=== PATIENT | female | born 1940 | race Caucasian/White ===

== ENCOUNTER 2017-06-29 18:35 | Inpatient (IN) | payer OTHER ==
[~2017-06-29] VITALS: Ht 152.4 cm; Wt 98.9 kg
[~2017-06-29 18:35] MED LIST: APAP325 MG PO; APRESOLINE50 MG PO; ARTHRITIS PAIN650 M1 PO; ATORVASTATIN CA40 MG PO; BUMETANIDE1 MG PO; CARDURA2 MG PO; CHILDREN'S ASPI81 M1; CIPRO 250MG250 MG PO; COLACE100 MG PO; CYMBALTA 30 MG30 MG PO; DIAZEPAM5 MG PO; ENALAPRIL5 MG PO; FERROUS SULFAT325 M1 PO; FLAGYL 25O MG250 M1 PO; FOLIC ACID 1 MG PO; FUROSEMIDE20 MG PO; FUROSEMIDE40 MG PO; HYDRALAZINE HCL25 MG PO; HYDRALAZINE HCL50 MG PO; JANUVIA 50MG50 MG PO; K-DUR 10MEQ TA10 MEQ PO; LASIX20 MG PO; LOPRESSOR 25MG25 MG PO; LOPRESSOR50 MG PO; METFORMIN HCL500 MG PO; MIRALAX17 GM PO; MULTIVITAMIN1 TAB PO; NIFEDICAL XL60 MG PO; NORCO 325 MG-51 TAB PO; ONE-A-DAY WOMEN1 TAB PO; POTASSIUM CHLO10 ME1 PO; PRAZOSIN HYDROCH2 MG PO; PRILOSEC40 MG PO; SIMVASTATIN40 MG PO; SIMVASTATIN80 MG PO; TRAMADOL50 MG PO; VALIUM5 M1 PO; VITAMIN B12500 MCG PO; VITAMIN B650 MG PO; VITAMIN D31000 IU PO; VITAMIN D31000 UNI2 PO; ZETIA10 MG PO
--- NOTE | 2017-06-29 19:33 | ED MVC/FALL/TRAUMA COMPLAINT ---
See Addendum History of Present Illness General Chief Complaint: Fall Stated Complaint: BIBA S/P FALL, SOB, TACHY Source: patient, EMS Exam Limitations: no limitations Vital Signs & Intake/Output Vital Signs & Intake/Output Vital Signs Date Time Temp Pulse Resp B/P B/P Pulse O2 O2 Flow FiO2 Mean Ox Delivery Rate 06/30 0124 98.8 102 20 128/86 92 Room Air 06/29 2314 100.3 90 20 164/66 95 Room Air 06/29 2150 100.1 85 22 169/70 92 Room Air 06/29 2018 94 172/72 06/29 1934 172/72 06/29 1838 101.3 94 18 195/103 95 ED Intake and Output 06/30 0000 06/29 1200 Intake Total 0 Output Total Balance 0 Intake, Oral 0 Patient 218 lb Weight Weight Reported by Patient Measurement Method Allergies Coded Allergies: Penicillins (Intermediate, HIVES 06/29/17) amoxicillin (DRY MOUTH 06/29/17) Triage Note: [facility]P FALL FROM STANDING ONTO TILE WHILE TRANSFERING FROM WALKER TO RECLINER. PT STATES SHE FELL ONTO BUTTOCKS, DENIES HEAD STRIKE. TAKES 81 MG ASA DAILY. DENIES PAIN. PER PT WAS ON FLOOR FOR 20 MINS PRIOR TO EMS ARRIVAL. PT FLUSHED ON ARRIVAL, TEMP 101.3. DENIES CHILLS OR OVERALL FEELING OF BEING UNWELL. STATES MANY PEOPLE AT HER [facility] HAVE THE FLU Triage Nurses Notes Reviewed? yes Onset: Abrupt Duration: hour(s): (2), constant, continues in ED Timing: single episode today Severity: mild, moderate Severity Numbers: 7 Injuries/Fall Location: no injury Method of Injury: fall Loss of Consciousness: no loss of consciousness No Modifying Factors: none LMP (ages 10-50): post menopausal : No Patient currently breastfeeds: No HPI: 77-year-old female past medical history of coronary artery disease, CHF, hypertension presents for evaluation of weakness, fever. Patient states that she was transferring from wheelchair to a recliner. While she was transferring she states her legs became very weak and she was unable to support her weight so she lowered herself to the ground. She states she did not fall. She denies any head strike no pain from the fall. She states she lowered herself to a sitting position. She required help to get back up into the wheelchair and was eventually transferred to a stretcher by EMS. She feels too weak to walk. She states she's been having cold and hot flashes all day and thinks she has a fever. She reports multiple contacts with the flu. No chest pain shortness breath or dizziness before the fall. No abdominal pain nausea vomiting diarrhea. No hemoptysis or lower extremity edema. (Timmy PABON,Norman) Reconcile Medications Acetaminophen (Apap) 325 MG TAB 1 TAB PO Q4H PRN MODERATE TO SEVERE PAIN ( Reported) Aspirin (Children's Aspirin) 81 MG TAB.CHEW 1 TAB PO BID HEART HEALTH ( Reported) Bumetanide 1 MG TAB 1 TAB PO BID Diuretic (Reported) Cholecalciferol (Vitamin D3) 1,000 UNIT TABLET 2,000 UNITS PO DAILY BONE STRENGTH (Reported) Ciprofloxacin (Ciprofloxacin HCl) 250 MG TAB 250 MG PO BID colitis Diazepam 5 MG TAB 1 TAB PO Q8H PRN SPASMS (Reported) Doxazosin Mesylate (Cardura) 2 MG TAB 1 TAB PO QPM HTN (Reported) Duloxetine Hydrochloride (Cymbalta) 30 MG CAP 1 CAP PO DAILY Depression ( Reported) Enalapril Maleate 5 MG TAB 1 TAB PO DAILY BLOOD PRESSURE (Reported) Ezetimibe (Zetia) 10 MG TAB 1 TAB PO DAILY CHOLESTEROL (Reported) Ferrous Sulfate 325 MG TAB 325 MG PO TID ANEMIA Furosemide 20 MG TAB 60 MG PO DAILY DIURETIC (Reported) HYDRALAZINE HCL (Hydralazine HCl) 50 MG TAB 1.5 TAB PO BID BLOOD PRESSURE Metformin Hydrochloride (Metformin HCl) 500 MG TAB 1 TAB PO DAILY DIABETES ( Reported) Metoprolol Tartrate (Lopressor) 25 MG TAB 75 MG PO BID BP (Reported) Metronidazole (Flagyl 25O MG Tablet) 250 MG TAB 500 MG PO Q8 colitis Nifedipine (Nifedipine ER) [address] TAB PO DAILY HEART/BP (Reported) Omeprazole (Prilosec) 40 MG ECC 1 CAP PO DAILY GI (Reported) Potassium Chloride [address] 1 TAB PO DAILY SUPPLEMENT (Reported) Simvastatin (Zocor) 80 MG TAB 1 TAB PO QPM CHOLESTEROL (Reported) Sitagliptin Phosphate (Januvia) 50 MG TAB 50 MG PO DAILY DIABETES TRAMADOL HCL (Tramadol) 50 MG TAB 1 TAB PO Q4H PRN PAIN (Reported) (Jacques LOWE,Mitchell Worley) ED Sepsis Exam Date of Focused Sepsis Exam: 06/29/17 Time of Focused Sepsis Exam: 2105 Sepsis Cardiac Exam: Regular Rate/Rhythm Sepsis Resp Exam: CTA Sepsis Cap Refill Exam: <2 Sec Sepsis Peripheral Pulse Exam: Normal Sepsis Peripheral Pulse Location: Radial Sepsis Skin Color Exam: Flushed Skin Temp/Moisture Exam: Hot/Dry (Norman Padilla) Past History Travel History Traveled to [place] past 21 day No Medical History Any Pertinent Medical History? 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 FH: CAD (coronary artery disease), Onset: 50-60. BROTHER (COPD). FH: cancer FH: COPD (chronic obstructive pulmonary disease) FATHER BROTHER (myocardial infarction). MOTHER FH: cancer SON SON (Mi in 40's). MOTHER ( from cancer of the liver and kidney). Hx Contributory? No (Norman Padilla) Review of Systems Review of Systems Constitutional: Reports: fever, malaise, weakness. Eyes: Reports: no symptoms. Ears, Nose, Throat, Mouth: Reports: no symptoms. Respiratory: Reports: no symptoms. Cardiovascular: Reports: no symptoms. Gastrointestinal/Abdominal: Reports: no symptoms. Genitourinary: Reports: no symptoms. Musculoskeletal: Reports: no symptoms. Skin: Reports: no symptoms. Neurological/Psychological: Reports: weakness. All Other Systems: Reviewed and Negative (Norman Padilla) Physical Exam Physical Exam General Appearance: well developed/nourished, no apparent distress, alert, awake , obese Head: atraumatic, normal appearance Eyes: Bilateral: normal appearance, PERRL, EOMI. Ears, Nose, Throat, Mouth: hearing grossly normal, moist mucous membrane Neck: normal inspection, supple, full range of motion, NO JVD Respiratory: chest non-tender, no respiratory distress, crackles (BASES) Cardiovascular: regular rate/rhythm, normal peripheral pulses Peripheral Pulses: 2+ radial (R), 2+ radial (L) Gastrointestinal: normal bowel sounds, soft, non-tender, no organomegaly Back: normal inspection, normal range of motion, NO CVAT Extremities: normal range of motion Neurologic/Psych: no motor/sensory deficits, awake, alert, oriented x 3 Skin: intact, warm/dry, FLUSHED Core Measures ACS in differential dx? No CVA/TIA Diagnosis No Sepsis Present: Yes Sepsis Focused Exam Completed? Yes (Timmy PABON,Norman) Progress Differential Diagnosis: ext injury, pelvis injury, SEPSIS, uti, PNEUMONIA, chf EXACERBATION, INFLUENZA, PYELONEPHRITIS copd Plan of Care: Orders Procedure Date/time Status Consistent Carbohydrate 3 06/30 B Active LACTIC ACID 06/30 06 Active CBC WITHOUT DIFFERENTIAL 06/30 06 Active BASIC ELECTROLYTES PLUS BUN&CR 06/30 06 Active MISSING MEDICATION FORM 06/30 0335 Active Turn and Reposition 06/30 0137 Active Skin Integrity Protocol 06/30 0137 Active Vital Signs 06/30 011 Active Teach/Educate 06/30 011 Active Pain Treatment and Response 06/30 011 Active Nutritional Intake, Monitor 06/30 011 Active Isolation 06/30 011 Active Intake & Output 06/30 0116 Active Patient Care Conference 06/30 0116 Active Activity/Ambulation 06/30 011 Active FingerStick- Glucose 06/30 UNK Active PT Evaluate & Treat 06/29 2348 Active Pathway - chart 06/29 2348 Active House Staff 06/29 2348 Active Patient Data 06/29 2348 Active Code Status 06/29 2348 Active Patient Data 06/29 2218 Active Saline Lock 06/29 2215 Active Misc Message 06/29 2215 Active ED Holding Orders 06/29 2215 Active Admit to inpatient 06/29 2215 Active Vital Signs 06/29 2215 Active Code Status 06/29 221 Complete LACTIC ACID 06/29 2153 Complete Straight Cath 06/29 2053 Active CULTURE,URINE 06/29 2053 Active Intake & Output 06/29 1930 Active BLOOD CULTURE 06/29 1922 Active URINALYSIS 06/29 1853 Complete TROPONIN LEVEL 06/29 1853 Complete LACTIC ACID 06/29 1853 Complete COMPREHENSIVE METABOLIC PANEL 06/29 1853 Complete CBC WITHOUT DIFFERENTIAL 06/29 1853 Complete EKG 06/29 1853 Active RAPID VIRAL INFLUENZA A 06/29 1846 Complete VTE Mechanical Prophylaxis 06/29 UNK Active Vital Signs 06/29 UNK Complete Current Medications Sig/Srinath Start time Last Medication Dose Stop Time Status Admin Atorvastatin Calcium 20 MG 1700 06/30 1700 AC (Lipitor) Ceftriaxone Sodium 1,000 MG DAILY 06/30 1000 AC (Rocephin) Duloxetine HCl 30 MG DAILY 06/30 1000 AC (Cymbalta) Ezetimibe 10 MG DAILY 06/30 1000 AC (Zetia) Metoprolol Tartrate 50 MG TID 06/30 1000 UNVr (Lopressor) Insulin Aspart 0 TIDAC 06/30 0800 AC (NovoLOG) Omeprazole 40 MG DAILY AC 06/30 0700 AC (Prilosec) Nifedipine 20 MG TID 06/30 0400 AC (Procardia) Heparin Sodium 5,000 UNIT Q8 06/29 2346 AC 06/30 (Porcine) 0032 Acetaminophen 325 MG Q6P PRN 06/29 2345 AC (Tylenol) Dextrose/Sodium 1,000 ML .Q10H 06/29 2345 AC 06/30 Chloride 06/30 0944 0032 (D5W-1/2 Normal Saline 1000ML) Laboratory Tests 06/29/172208: Lactic Acid 1.8 06/29/172049: Urine Color YEL, Urine Clarity TURBD H, Urine pH 6.0, Ur Specific Sayre 1.025 , Urine Protein 100 H, Urine Ketones TRACE H, Urine Nitrite POS H, Urine Bilirubin NEG, Urine Urobilinogen 0.2, Ur Leukocyte Esterase LARGE H, Ur Microscopic SEDIMENT EXAMINED, Urine RBC 1-3, Urine WBC PACKD H, Ur Epithelial Cells RARE, Urine Bacteria MANY H, Urine Hemoglobin MOD H, Urine Glucose NEG 06/29/17 1905: Anion Gap 18 H, Estimated GFR 40 L, BUN/Creatinine Ratio 23.8, Glucose 246 H, Lactic Acid 2.6 H, Calcium 9.3, Total Bilirubin 0.7, AST 41 H, ALT 31, Alkaline Phosphatase 98, Troponin I < 0.01, Total Protein 7.5, Albumin 4.3, Globulin 3.2, Albumin/Globulin Ratio 1.3, CBC w Diff MAN DIFF ORDERED, RBC 4.82, MCV 86.2, MCH 28.0, MCHC 32.5 L, RDW 14.8 H, MPV 7.9, Gran % 87.6 H, Lymphocytes % 6.0 L, Monocytes % 5.2, Eosinophils % 0.8, Basophils % 0.4, Absolute Granulocytes 14.4 H, Segmented Neutrophils 89 H, Absolute Lymphocytes 1.0 L, Lymphocytes 5 L, Monocytes 5, Absolute Monocytes 0.9 H, Absolute Eosinophils 0.1, Basophils 1, Absolute Basophils 0.1, Platelet Estimate VERIFIED BY SMEAR, Normocytic RBCs VERIFIED, Normochromic RBCs VERIFIED, Fld Total RBCs Counted 100 Microbiology 06/29 2049 URINE ROUT: Urine Culture - RECD 06/29 2008 BLOOD: Blood Culture - RECD 06/29 1939 BLOOD: Blood Culture - RECD 06/29 1847 NASOPHARYN: Influenza Virus A & B Rapid Smear - COMP Patient seen and evaluated. She was brought in after her legs get weak color lower cell to the ground. She states she did not fall there was no head strike she lowered herself. She denies any pain. She does report chills and fever as well as weakness. She states she feels like she is unable to walk due to weakness in her legs. She denies any urinary symptoms abdominal pain nausea or vomiting. She states that she did eat today. We'll check a flu swab patient medicated with IV Tylenol and IV fluids. Also chest x-ray and urinalysis. Urine is showing signs of infection. White blood cell count elevated 16.5. Flu negative. No evidence of pneumonia. Abdomen is soft and nontender no cellulitis. No evidence of trauma. Patient will be started on ceftriaxone. Fluids started due to mildly elevated lactic acid. Patient will be admitted for treatment of sepsis of urologic origin. She will require IV antibiotics, IV fluids, serial labs, follow up cultures, monitoring of vital signs. Case discussed with Dr. Hanna he agrees. Diagnostic Imaging: Viewed by Me: Radiology Read. Discussed w/RAD: Radiology Read. Radiology Impression: PATIENT: JHONATHAN HOGAN PRESENT AGE: 77 PATIENT ACCOUNT NO: [id number] : 40 LOCATION: [facility] ORDERING PHYSICIAN: Norman PABON SERVICE DATE: 06/29/17 EXAM TYPE: RAD - XRY-PORTABLE CHEST XRAY EXAMINATION: XR PORTABLE CHEST CLINICAL INFORMATION: Cough, fever COMPARISON: 2014 TECHNIQUE: Portable frontal view of the chest was obtained. FINDINGS: Lungs and Mayra: Both lungs are clear. Pleura: Normal. Costophrenic angles are sharp. No pneumothorax. Heart: The heart is normal in size. Mediastinum: Widened mediastinum unchanged.. Bones: Skeletal structures included are normal for patient's age. IMPRESSION: No change, no acute infiltrates. Widened mediastinum stable. DICTATED BY: Zeferino Blackman MD DATE/ TIME DICTATED:06/29/172006 PSYCH SPECIALIST:GISELLA DATE/TIME TRANSCRIBED: 06/29/172006 CONFIDENTIAL, DO NOT COPY WITHOUT APPROPRIATE AUTHORIZATION. < Electronically signed in Other Vendor System> SIGNED BY: Zeferino Blackman MD 06/29/172011 Initial ED EKG: normal sinus rhythm, no ST T wave changes (Norman Padilla) Departure Departure Disposition: STILL A PATIENT Condition: Stable Referrals: Yoel Bassett MD (PCP/Family) Departure Forms: Customer Survey General Discharge Information Admission Note Spoke With: Lamont Reyes MD Documentation of Exam: Documentation of any treatments & extenuating circumstances including Concerns Regarding Discharge (functional status, medication knowledge or non-compliance, living conditions, etc.) that warrant an admission rather than observation: [ She will require IV antibiotics, IV fluids, serial labs, follow up cultures, monitoring of vital signs.] (Norman Padilla) Departure Clinical Impression Primary Impression: Sepsis Qualifiers: Sepsis type: sepsis due to unspecified organism Qualified Code: A41.9 - Sepsis, unspecified organism Secondary Impressions: Urinary tract infection 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 I have also reviewed all the pertinent lab results and diagnostic results. I agree with the findings and the plan of care as documented in the PA's/GEOPHYSICAL ENGINEER's documentation. 06/29/17, 21:40... pt feeling well presently after supportive measures.... pt awake and alert with otherwise benign exam... elevated wbc count, evidence of uti, and meets criteria for sepsis... pt merits iv abx, iv fluids. [] I have reviewed the ED Record and agree with the PA's/GEOPHYSICAL ENGINEER's documentation. [] Additions or exceptions (if any) to the PAs/GEOPHYSICAL ENGINEER's note and plan are summarized below: [] (Jacques LOWE,Mitchell Worley) Critical Care Note Critical Care Note Critical Care Time: 30-74 min (Jacques LOWE,Mitchell Worley)
[2017-06-29 19:35] LABS: ABSOLUTE BASOPHIL COUNT 0.1 /CUMM (0.0-0.2); ABSOLUTE EOSINOPHIL COUNT 0.1 /CUMM (0.0-0.7); ABSOLUTE GRANULOCYTE CT 14.4 /CUMM (1.4-6.5); ABSOLUTE MONOCYTE COUNT 0.9 /CUMM (0.10-0.60); BASOPHIL % 0.4 % (0.0-2.0); EOSINOPHIL % 0.8 % (0-5); GRANULOCYTE % 87.6 % (42.2-75.2); HEMATOCRIT 41.5 % (37-47); MEAN CORPUSCULAR HGB CONC 32.5 G/DL (33.0-37.0); MEAN CORPUSCULAR VOLUME 86.2 FL (81.0-99.0); MEAN PLATELET VOLUME 7.9 FL (7.4-10.4); PLATELET COUNT 541 /CUMM (130-400); RBC DISTRIBUTION WIDTH 14.8 % (11.5-14.5); RED BLOOD CELL CT 4.82 /CUMM (4.20-5.40); WHITE BLOOD CELL COUNT 16.5 /CUMM (4.8-10.8)
--- NOTE | 2017-06-29 20:12 | RADIOLOGY REPORT ---
EXAMINATION: XR PORTABLE CHEST CLINICAL INFORMATION: Cough, fever COMPARISON: 2014 TECHNIQUE: Portable frontal view of the chest was obtained. FINDINGS: Lungs and Mayra: Both lungs are clear. Pleura: Normal. Costophrenic angles are sharp. No pneumothorax. Heart: The heart is normal in size. Mediastinum: Widened mediastinum unchanged.. Bones: Skeletal structures included are normal for patient's age. IMPRESSION: No change, no acute infiltrates. Widened mediastinum stable.
--- NOTE | 2017-06-29 21:58 | History & Physical ---
Lucas LOWE,[facility] 06/29/17 2158: General Information and HPI MD Statement: I have seen and personally examined JHONATHAN CHAVEZ and documented this H&P. The patient is a 77 year old F who presented with a patient stated chief complaint of [weakness]. Source of Information: patient History of Present Illness: 77 yo F with past medical history significant for hypertension, hyperlipidemia, peripheral vascular disease with bilateral carotid stenosis, diabetes mellitus, coronary artery disease status post drug-eluting stent placement 2010, lives in an F facility presented to the emergency room with weakness. She states that she was doing fine in the AM and was toleraing her entire diet however she states she did not feel right around lunch time. She did not finish her lunch and then went to her room and sat in her recliner. She then decided to skip dinner and went to her room. She sleeps in her recliner. The patient states she was using her walker and tried to transition to her reclienr when she became weak and then used the sides of her walker to slowly guide herself onto the ground. She called nursing aids who then asked if she wanted them to call 911. She stated she wanted them to call 911 for her facial erythema, fevers, and chills. Allergies/Medications Allergies: Coded Allergies: Penicillins (Intermediate, HIVES 06/29/17) amoxicillin (DRY MOUTH 06/29/17) Past History Travel History Traveled to [place] past 21 day No Medical History Neurological: NONE, restless leg syndrome EENT: NONE Cardiovascular: NONE (peripheral vascular disease), CAD (s/p angioplasty), CHF, hypertension, hyperlipidemia, BLOCKED L CAROTID ARTERY Respiratory: NONE Gastrointestinal: NONE Hepatic: NONE Renal: UTI Musculoskeletal: chronic back pain, osteoarthritis, spinal stenosis Psychiatric: NONE, depression Endocrine: DM Blood Disorders: NONE Cancer(s): NONE 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 FH: CAD (coronary artery disease), Onset: 50-60. BROTHER (COPD). FH: cancer FH: COPD (chronic obstructive pulmonary disease) FATHER BROTHER (myocardial infarction). MOTHER FH: cancer SON SON (Mi in 40's). MOTHER ( from cancer of the liver and kidney). Psychosocial History Services at Home: Home Health Aide Review of Systems Review of Systems Constitutional: Reports: see HPI, chills, fever. Cardiovascular: Reports: no symptoms. Respiratory: Reports: no symptoms. GI: Reports: no symptoms. Genitourinary: Reports: no symptoms. Musculoskeletal: Reports: see HPI (weakness). Exam & Diagnostic Data Last 24 Hrs of Vital Signs/I&O Vital Signs Date Time Temp Pulse Resp B/P B/P Pulse O2 O2 Flow FiO2 Mean Ox Delivery Rate 06/29 2314 100.3 90 20 164/66 95 Room Air 06/29 2150 100.1 85 22 169/70 92 Room Air 06/29 2018 94 172/72 06/29 1934 172/72 06/29 1838 101.3 94 18 195/103 95 Physical Exam General Appearance Alert, Oriented X3, Cooperative, No Acute Distress HEENT no neck lymphadenopathy, dry oral mucosa, no jvd. b/l carotid buit Cardiovascular Regular Rate, Normal S1, Normal S2 Lungs decrease air movement. diffuse fine inspiratory crackles, diffuse inspiratory crackles Abdomen Normal Bowel Sounds, Soft, No Tenderness, umbilical hernia Extremities trace pedal edema, no cva tenderness Assessment/Plan Assessment: A: 77 yo F with past medical history significant for hypertension, hyperlipidemia, peripheral vascular disease with bilateral carotid stenosis, diabetes mellitus, coronary artery disease status post drug-eluting stent placement 2010, lives in an ECF facility presented to the emergency room with weakness P: #weakness most likely 2/2 to UTI T max 101.3 wbc 16.5 LA 2.6, 1.8 -cont ceftriaxone - lactic acid @ 6am -f/u OT, PT -f/u urine and blood cx -cont gentle hydration as pt has Cr 1.3 and got IV contrast. -holding home dieuretics, watch for overload #home meds -[facility] #hx of urinary incontinence - reoslved Chronic issue x1 year -consider outpatient renal US for renal cysts #htn urgency Initial BP 190/100 -> 138/80 Hx of widedened mediastium CTA:1. calcified and noncalcified pleural plaques however No CT evidence of aneurysm or dissection of the thoracic aorta. Prominent mediastinal fat accounts for the widened mediastinum seen on the chest x-ray. 2. Coronary calcifications. 3. Gallstones. Cholelithiasis. 4. There are 2 hypodense areas in the RIGHT kidney 1.2 cm, not well imaged obscured partially by beam hardening artifact, could be complex cyst versus lesion, consider follow-up ultrasound. -cont nifendine, metorpolol #hx of diabetes -hold januvia -cont novolog sliding scale #ckd Cr 1.3 -currently at baseline. cont to monitor as pt just got contrast #hx of cad -cont lipitor, ezetimibe, #mental health -cont deloxetine #gerd -cont omeprazole #DNR DNI #DVT prophylaxis -heparin As Ranked By This Provider Problem List: 1. Weakness 2. Cystitis 3. Hypertensive urgency Core Measures/Misc (02/09) Acute Coronary Syndrome ACS Diagnosis: No Congestive Heart Failure Congestive Heart Failure Diagnosis No Cerebrovascular Accident CVA/TIA Diagnosis: No VTE (View Protocol) VTE Risk Factors No risk factors No Mechanical VTE Prophylaxis d/t Other No VTE Pharm Prophylaxis d/t NA PharmProphylax ordered Sepsis (View protocol) Sepsis Present: No Chanell LOWE,[facility] 06/30/17 0140: General Information and HPI Allergies/Medications Home Med list Acetaminophen (Apap) 325 MG TAB 1 TAB PO Q4H PRN MODERATE TO SEVERE PAIN ( Reported) Aspirin (Children's Aspirin) 81 MG TAB.CHEW 1 TAB PO BID HEART HEALTH ( Reported) Bumetanide 1 MG TAB 1 TAB PO BID Diuretic (Reported) Cholecalciferol (Vitamin D3) 1,000 UNIT TABLET 2,000 UNITS PO DAILY BONE STRENGTH (Reported) Ciprofloxacin (Ciprofloxacin HCl) 250 MG TAB 250 MG PO BID colitis Diazepam 5 MG TAB 1 TAB PO Q8H PRN SPASMS (Reported) Doxazosin Mesylate (Cardura) 2 MG TAB 1 TAB PO QPM HTN (Reported) Duloxetine Hydrochloride (Cymbalta) 30 MG CAP 1 CAP PO DAILY Depression ( Reported) Enalapril Maleate 5 MG TAB 1 TAB PO DAILY BLOOD PRESSURE (Reported) Ezetimibe (Zetia) 10 MG TAB 1 TAB PO DAILY CHOLESTEROL (Reported) Ferrous Sulfate 325 MG TAB 325 MG PO TID ANEMIA Furosemide 20 MG TAB 60 MG PO DAILY DIURETIC (Reported) HYDRALAZINE HCL (Hydralazine HCl) 50 MG TAB 1.5 TAB PO BID BLOOD PRESSURE Metformin Hydrochloride (Metformin HCl) 500 MG TAB 1 TAB PO DAILY DIABETES ( Reported) Metoprolol Tartrate (Lopressor) 25 MG TAB 75 MG PO BID BP (Reported) Metronidazole (Flagyl 25O MG Tablet) 250 MG TAB 500 MG PO Q8 colitis Nifedipine (Nifedipine ER) [address] TAB PO DAILY HEART/BP (Reported) Omeprazole (Prilosec) 40 MG ECC 1 CAP PO DAILY GI (Reported) Potassium Chloride [address] 1 TAB PO DAILY SUPPLEMENT (Reported) Simvastatin (Zocor) 80 MG TAB 1 TAB PO QPM CHOLESTEROL (Reported) Sitagliptin Phosphate (Januvia) 50 MG TAB 50 MG PO DAILY DIABETES TRAMADOL HCL (Tramadol) 50 MG TAB 1 TAB PO Q4H PRN PAIN (Reported) Exam & Diagnostic Data Last 24 Hrs of Vital Signs/I&O Vital Signs Date Time Temp Pulse Resp B/P B/P Pulse O2 O2 Flow FiO2 Mean Ox Delivery Rate 06/30 0124 98.8 102 20 128/86 92 Room Air 06/29 2314 100.3 90 20 164/66 95 Room Air 06/29 2150 100.1 85 22 169/70 92 Room Air 06/29 2018 94 172/72 06/29 1934 172/72 06/29 1838 101.3 94 18 195/103 95 Intake & Output 06/30 0800 06/30 0000 06/29 1600 Intake Total 0 Output Total Balance 0 Intake, Oral 0 Patient 98.883 kg 98.883 kg Weight Weight Reported by Patient Reported by Patient Measurement Method Resident Review Statement Resident Statement: examined this patient, discussed with business services intern, agreed with business services intern Other Findings: Ms. Chavez is 77 years old female with past medical history of CAD s/p stent 2010, 2009, hypertension, hyperlipidemia, peripheral vascular disease, right carotid artery stenosis s/p stent, complete right carotid artery stenosis, diabetes mellitus, depression, restless leg syndrome, severe spinal stenosis, urinary incontinence who presented to ED with chief complaint of weakness and fever. Patient came from assisted living facility, history was obtained from her. Patient reported that around lunchtime she felt not well, wasn't able to finish her meal, went back to her room for wrist. Around 5 PM she moved to her bedroom and while she was trying to transfer from the walker to the recliner she felt so weak "legs about collapse on me"and lower herself slowly to the floor, denied any loss of consciousness, dizziness, blurry vision, confusion. Patient called for help and was found to be feverish, had some chills and BIBA for evaluation. Patient follow with her PCP and Nathan Cortez MD. vital signs temperature 101.3, pulse 94, blood pressure 195/103, respiratory rate 18 with saturation 95% Physical exam HEENT bilateral reactive pupils, dry mucous membrane, no lymphadenopathy, borderline raised JVD. Cardiac S1, S2 regular, systolic murmur Respiratory equal air entry. Abdomen distended, soft, umblical hernia, positive bowel sounds, nontenderness Lower extremity bilateral trace pretibial edema Labs White blood cell 16.5 with left shift, no bandemia, H&H 13.5/41.5, platelets 541, sodium 142, potassium 5.2, BUN/creatinine 31/1.3 baseline, sugar 246, lactic acid 2.6, AST 41, UA positive for nitrates, flu rapid test negative Chest x-ray IMPRESSION: No change, no acute infiltrates. Widened mediastinum stable. CTA IMPRESSION: 1. There are calcified and noncalcified pleural plaques however No CT evidence of aneurysm or dissection of the thoracic aorta. Prominent mediastinal fat accounts for the widened mediastinum seen on the chest x-ray. 2. Coronary calcifications. 3. Gallstones. Cholelithiasis. 4. There are 2 hypodense areas in the RIGHT kidney 1.2 cm, not well imagedobscured partially by beam hardening artifact, could be complex cyst versus lesion, consider follow-up ultrasound. Problem list #Sepsis of urological origin #UTI #Dehydration with elevated BUN and AST #Lactic acidosis #Chronic stable widening of mediastinum, dissection of thoracic aorta was ruled out by CTA #2 hypodense area in the right kidney is 1.2 cm, needs follow-up ultrasound #Hypertension and hyperlipidemia #Diabetes mellitus #Mild hyperkalemia with no EKG changes #Thrombocytosis reactive versus malignancy Plan -Admit to general medical floor -Vitals every shift -Patient received normal saline bolus in the ED, lactic acid trended down to 1.8 -We'll give another bag of D5 half-normal saline running at 100 mL/h, one pack only given patient history of CHF and the fact that we are holding diuretics in setting of spesis -Repeat lactic acid in a.m. -Repeat CBC and BMP in a.m. -Ceftriaxone 1 g daily -Follow up urine culture and blood culture -Acetaminophen for fever and pain -Patient medication list from the assisted living facilities and accurate, please contact the facility in a.m. for medication reconciliation -According to claim history, will start important medication metoprolol 50 3 times a day, nifedipine 20 3 times a day, simvastatin 40, omeprazole 40, ezetimibe 10 mg, Cymbalta 30 mg -Accu-Chek and NovoLog sliding scale -Follow-up as an outpatient renal ultrasound for right kidney masses versus cysts -Please obtain records from PCP for thrombocytosis -Diet diabetic diet with 2 g sodium restriction -DVT prophylaxis heparin subcutaneous -Code DNR/DNI, patient has living will and advanced directives with her son Fernando THAYER, please obtain it in a.m. Lamont Reyes 06/30/17 0303: Attending MD Review Statement Attending Statement Attending MD Statement: examined this patient, discuss w/resident/PA/SWITCHBOARD OPERATOR RECEPTIONIST, agreed w/resident/PA/SWITCHBOARD OPERATOR RECEPTIONIST, reviewed EMR data (avail), reviewed images, amended to note Attending Assessment/Plan: CC: Almost fall PMH: HTN, HLD, carotid stenosis R CEA, left occluded, DM, CAD S/P stent, HF Patient came from assisted living for almost fall. Patient was not feeling well since this afternoon. She does not exactly describe the symptoms but she was just feeling weak and lethargic, hot and cold. She did not eat her dinner and was in her room when trying to get from the wheelchair to her recliner when she thought her legs gave out and she gradually sat on the floor with the help of her walker hitting her bottom. No head trauma, no loss of consciousness, no seizure-like activity. range aide came in who called EMS, patient was found to have fever when EMS arrived. Patient denies any upper respiratory symptoms, myalgias, chest pain, cough, abdominal pain, skin rashes, joint pains. Patient does not feel passing urine, wears diapers for incontinence and is not aware if she has having burning in urine or increased frequency. Even though many people in her assisted living has influenza, during this winter she is trying to be mostly in her room and avoiding social activities to avoid exposure. Vitals: Tmax 101.3, pulse 94, RR 18, blood pressure 195/103, saturating 95% on room air On exam: A O 3, cooperative, no acute distress, neck supple, JVD normal, no lymphadenopathy, mucosa moist, no focal neurological deficit, trace leg edema, no obvious skin rashes or inflammation CVS: S1-S2, RRR, systolic murmur. RS: Clear to auscultate bilaterally. Abdomen: Soft, NT, ND, bowel sounds present. Labs: WBC 16.5, hemoglobin 13.5, hematocrit 41.5, platelets 541, neutrophils 87% , sodium 142, potassium 5.2, chloride 99, bicarbonate 25, BUN 31, creatinine 1.3 , anion gap 18, glucose 246, calcium 9.3, lactic acid 2.6, LFT unremarkable, influenza negative UA: Trace ketones, nitrite positive, leukocyte esterase positive CXR:No change, no acute infiltrates. Widened mediastinum stable. CTA chest: 1. There are calcified and noncalcified pleural plaques however No CT evidence of aneurysm or dissection of the thoracic aorta. Prominent mediastinal fat accounts for the widened mediastinum seen on the chest x-ray. 2. Coronary calcifications. 3. Gallstones. Cholelithiasis. 4. There are 2 hypodense areas in the RIGHT kidney 1.2 cm, not well imaged obscured partially by beam hardening artifact, could be complex cyst versus lesion, consider follow-up ultrasound. A and P 77-year-old female with extensive past medical history presented in ER for generalized lethargically, almost fall after legs giving out. She did not have any acute trauma, acute pain after the fall, no head injury or loss of consciousness but when EMS arrived she was found to have fever. She was evaluated in the ER for fever and was found to have UTI. Patient does not have any urinary sensation because of her incontinence and denies dysuria or frequency. But no other source of infection identified for fever of 101.3. Influenza negative, no evidence of pneumonia, no cellulitis. No bony tenderness. + Almost fall secondary to lethargy + UTI: Cystitis + History of HTN, HLD, carotid stenosis R CEA, left occluded, DM, CAD S/P stent, HF - Admit to general medicine - Continue gentle hydration, patient received IV contrast, creatinine 1.3 : watch for overload (diuresis on hold) - Hold diuretic - Continue antihypertensive - Trend lactate - Continue IV ceftriaxone - Follow-up urine culture, blood culture - Continue sliding scale insulin, hold oral anti-diabetic - Medications need to be confirmed from patient's pharmacy : She does not recall all her medications - DVT prophylaxis - OT PT evaluation
--- NOTE | 2017-06-29 22:58 | CT SCAN REPORT ---
EXAMINATION: CT CHEST with contrast CLINICAL INFORMATION: Aortic dissection COMPARISON: None TECHNIQUE: Volumetric imaging was performed through the chest. Reformatted coronal and sagittal imaging was performed. CONTRAST: 100 mL of Omnipaque 350 injected. FINDINGS: PULMONARY ARTERIES: There is proper opacification of the pulmonary artery and its main branches. No CT evidence of pulmonary emboli. LINES/TUBES: None LUNGS: Lung Parenchyma: There is no CT evidence of significant lung parenchymal disease. Lung Nodules: No suspicious lung mass. Minimal scattered pulmonary emphysematous blebs. AIRWAYS: Trachea and bronchi are normal. PLEURA: No pleural effusion or pneumothorax. MEDIASTINUM AND JANEEN: The visualized thyroid gland is unremarkable. No mediastinal, hilar or axillary lymphadenopathy. There is no mediastinal mass. VESSELS: Thoracic aorta is normal in size. There are calcified and noncalcified pleural plaques, there is no CT evidence however of aortic dissection. HEART AND PERICARDIUM: Heart is normal in size. There is no pericardial effusion. There are coronary calcifications. CHEST WALL, LOWER NECK, SURROUNDING SOFT TISSUES: Normal VISUALIZED ABDOMEN: There are multiple gallstones. There are 2 hypodense areas in the RIGHT kidney not well characterized due to beam hardening artifacts, could be complex cysts. BONES: The visualized bony thorax is within normal limits. IMPRESSION: 1. There are calcified and noncalcified pleural plaques however No CT evidence of aneurysm or dissection of the thoracic aorta. Prominent mediastinal fat accounts for the widened mediastinum seen on the chest x-ray. 2. Coronary calcifications. 3. Gallstones. Cholelithiasis. 4. There are 2 hypodense areas in the RIGHT kidney 1.2 cm, not well imaged obscured partially by beam hardening artifact, could be complex cyst versus lesion, consider follow-up ultrasound.
[2017-06-30 01:24] VITALS: BP 128/86
--- NOTE | 2017-06-30 03:05 | Admission Certification ---
Admission Certification Certification Statement - As attending physician, I certify that at the time of - admission, based on clinical presentation, severity of - symptoms, need for further diagnostic testing and - therapeutic interventions, and risk of adverse outcomes - without in-hospital treatment, in my clinical assessment, - this patient requires an acute hospital stay for a minimum - of two nights or longer. I have also considered psychsocial - factors such as support system, advanced age, financial - issues, cognitive issues, and failed out-patient treatments, - past re-admission history, safety of patient, and lack of - compliance as applicable. Specific rationale supporting this admission is: UTI, fall
[2017-06-30 05:50] VITALS: BP 138/80
--- NOTE | 2017-06-30 07:29 | PN- Housestaff ---
Subjective Follow-up For: Weakness Fevers Subjective: Seen and examined at bedside. She does endorse chills but no fevers. Last MAXIMUM TEMPERATURE was 101. Review of Systems Constitutional: Reports: see HPI. Objective Last 24 Hrs of Vital Signs/I&O Vital Signs Date Time Temp Pulse Resp B/P B/P Pulse O2 O2 Flow FiO2 Mean Ox Delivery Rate 06/30 1237 98.6 22 92 Nasal 2.0L Cannula 06/30 0908 88 138/80 06/30 0907 88 138/80 06/30 0800 98.7 06/30 0658 99.8 06/30 0630 99.8 06/30 0604 100.2 06/30 0550 100.9 88 22 138/80 95 Room Air 06/30 0544 100.2 06/30 0445 100.9 06/30 0444 138/80 06/30 0124 98.8 102 20 128/86 92 Room Air 06/29 2314 100.3 90 20 164/66 95 Room Air 06/29 2150 100.1 85 22 169/70 92 Room Air 06/29 2018 94 172/72 02 1934 172/72 06/29 1838 101.3 94 18 195/103 95 Intake & Output 06/30 1600 06/30 0800 06/30 0000 Intake Total 240 0 Output Total Balance 240 0 Intake, Oral 240 0 Patient 98.883 kg 98.883 kg Weight Weight Reported by Patient Reported by Patient Measurement Method Physical Exam General Appearance: Alert, Oriented X3, Cooperative Assessment/Plan Assessment: 77-year-old very pleasant lady with a past medical history significant for hypertension, hyperlipidemia, 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 Impression Generalized weakness. Setting of fevers and a UA suggestive of an infection possibly a UTI is the main etiology of patient's weakness. Urinary tract infection as suggested by fevers and a UA remarkable for an infection. The patient does not have urinary symptoms such as dysuria or increased frequency which is considered asymptomatic UTI. Normally will not treat patients with a symptomatic UTI however given the fevers, generalized weakness and lactic acid patient warrants treatment with an antibiotic. HX OF diseases: Hypertension, hyperlipidemia, carotid stenosis, diabetes,CAD Plan Continue ceftriaxone treatment of UTI Will follow up on urine and blood cultures Administer IV Lasix 20 mg 1 as patient was noted to start developing shortness of breath, given the history of CHF and patient having had received 2 L of normal saline were cautious about fluid overload Continue sliding scale Continue Accu-Chek 3 times a day Follow-up OT PT recommendations Problem List: 1. Cystitis 2. Weakness Pain Ratin Pain Location: none Pain Goal: Remain pain free Pain Plan: per pathway Tomorrow's Labs & Rationales: cbc-infection
[2017-06-30 10:34] LABS: ABSOLUTE EOSINOPHIL COUNT 0 /CUMM (0.0-0.7); WHITE BLOOD CELL COUNT 11.3 /CUMM (4.8-10.8)
[2017-06-30 11:06] LABS: ABSOLUTE BASOPHIL COUNT 0.1 /CUMM (0.0-0.2); ABSOLUTE LYMPH COUNT 1.3 /CUMM (1.2-3.4); ABSOLUTE MONOCYTE COUNT 0.9 /CUMM (0.10-0.60); BASOPHIL % 0.5 % (0.0-2.0); EOSINOPHIL % 0.3 % (0-5); GRANULOCYTE % 79.3 % (42.2-75.2); MEAN CORPUSCULAR HGB 28.6 PG (27.0-31.0); MEAN CORPUSCULAR VOLUME 86.7 FL (81.0-99.0); PLATELET COUNT 432 /CUMM (130-400); RED BLOOD CELL CT 3.95 /CUMM (4.20-5.40)
[2017-06-30 11:21] LABS: HEMATOCRIT 34.2 % (37-47)
--- NOTE | 2017-06-30 12:55 | PN- Att Addend ---
Attending Addendum Attending Brief Note Patient seen and examined, feeling slightly better. Says that her fever finally broke. Patient is admitted with the generalized weakness and found to have sepsis 2/2 to urinary tract infection. Vital Signs Date Time Temp Pulse Resp B/P B/P Pulse O2 O2 Flow FiO2 Mean Ox Delivery Rate 06/30 1237 98.6 22 92 Nasal 2.0L Cannula 06/30 0908 88 138/80 06/30 0907 88 138/80 06/30 0800 98.7 06/30 0658 99.8 06/30 0630 99.8 06/30 0604 100.2 06/30 0550 100.9 88 22 138/80 95 Room Air 06/30 0544 100.2 06/30 0445 100.9 06/30 0444 138/80 06/30 0124 98.8 102 20 128/86 92 Room Air 06/29 2314 100.3 90 20 164/66 95 Room Air 06/29 2150 100.1 85 22 169/70 92 Room Air 06/29 2018 94 172/72 06/29 1934 172/72 06/29 1838 101.3 94 18 195/103 95 on exam; aox3, nad. cv; s1,s2, rrr resp; clear abd; soft, nt, bs+ ext; no edema. Laboratory Tests 06/30 06/30 06/29 1030 0749 2209 Chemistry Sodium (137 - 145 mmol/L) 141 Potassium (3.5 - 5.1 mmol/L) 3.8 Chloride (98 - 107 mmol/L) 105 Carbon Dioxide (22 - 30 mmol/L) 22 Anion Gap (5 - 16) 13 BUN (7 - 17 mg/dL) 24 H Creatinine (0.5 - 1.0 mg/dL) 1.3 H Estimated GFR (>60 ml/min) 40 L BUN/Creatinine Ratio (7 - 25 %) 18.5 Lactic Acid (0.7 - 2.1 mmol/L) 1.8 1.8 Coagulation APTT Cancelled Hematology CBC w Diff NO MAN DIFF REQ WBC (4.8 - 10.8 /CUMM) 11.3 H RBC (4.20 - 5.40 /CUMM) 3.95 L Hgb (12.0 - 16.0 G/DL) 11.3 L Hct (37 - 47 %) 34.2 L MCV (81.0 - 99.0 FL) 86.7 MCH (27.0 - 31.0 PG) 28.6 MCHC (33.0 - 37.0 G/DL) 33.0 RDW (11.5 - 14.5 %) 15.0 H Plt Count (130 - 400 /CUMM) 432 H MPV (7.4 - 10.4 FL) 8.0 Gran % (42.2 - 75.2 %) 79.3 H Lymphocytes % (20.5 - 51.1 %) 11.8 L Monocytes % (1.7 - 9.3 %) 8.1 Eosinophils % (0 - 5 %) 0.3 Basophils % (0.0 - 2.0 %) 0.5 Absolute Granulocytes (1.4 - 6.5 /CUMM) 9.0 H Absolute Lymphocytes (1.2 - 3.4 /CUMM) 1.3 Absolute Monocytes (0.10 - 0.60 /CUMM) 0.9 H Absolute Eosinophils (0.0 - 0.7 /CUMM) 0 Absolute Basophils (0.0 - 0.2 /CUMM) 0.1 06/29 2049 Urines Urine Color (YEL,AMB,STR) YEL Urine Clarity (CLEAR) TURBD H Urine pH (5.0 - 8.0) 6.0 Ur Specific Embarrass (1.001 - 1.035) 1.025 Urine Protein (NEG,<30 MG/DL) 100 H Urine Ketones (NEG) TRACE H Urine Nitrite (NEG) POS H Urine Bilirubin (NEG) NEG Urine Urobilinogen (0.1 - 1.0 EU/dl) 0.2 Ur Leukocyte Esterase (NEG) LARGE H Ur Microscopic SEDIMENT EXAMINED Urine RBC (0 - 5 /HPF) 1-3 Urine WBC (0 - 2 /HPF) PACKD H Ur Epithelial Cells (NONE,FEW) RARE Urine Bacteria (NEG/NONE) MANY H Urine Hemoglobin (NEG) MOD H Urine Glucose (N MG/DL) NEG 06/29 1904 Chemistry Sodium (137 - 145 mmol/L) 142 Potassium (3.5 - 5.1 mmol/L) 5.2 H Chloride (98 - 107 mmol/L) 99 Carbon Dioxide (22 - 30 mmol/L) 25 Anion Gap (5 - 16) 18 H BUN (7 - 17 mg/dL) 31 H Creatinine (0.5 - 1.0 mg/dL) 1.3 H Estimated GFR (>60 ml/min) 40 L BUN/Creatinine Ratio (7 - 25 %) 23.8 Glucose (65 - 99 mg/dL) 246 H Lactic Acid (0.7 - 2.1 mmol/L) 2.6 H Calcium (8.4 - 10.2 mg/dL) 9.3 Total Bilirubin (0.2 - 1.3 mg/dL) 0.7 AST (14 - 36 U/L) 41 H ALT (9 - 52 U/L) 31 Alkaline Phosphatase (<127 U/L) 98 Troponin I (< 0.11 ng/ml) < 0.01 Total Protein (6.3 - 8.2 g/dL) 7.5 Albumin (3.5 - 5.0 g/dL) 4.3 Globulin (1.9 - 4.2 gm/dL) 3.2 Albumin/Globulin Ratio (1.1 - 2.2 %) 1.3 Hematology CBC w Diff MAN DIFF ORDERED WBC (4.8 - 10.8 /CUMM) 16.5 H RBC (4.20 - 5.40 /CUMM) 4.82 Hgb (12.0 - 16.0 G/DL) 13.5 Hct (37 - 47 %) 41.5 MCV (81.0 - 99.0 FL) 86.2 MCH (27.0 - 31.0 PG) 28.0 MCHC (33.0 - 37.0 G/DL) 32.5 L RDW (11.5 - 14.5 %) 14.8 H Plt Count (130 - 400 /CUMM) 541 H MPV (7.4 - 10.4 FL) 7.9 Gran % (42.2 - 75.2 %) 87.6 H Lymphocytes % (20.5 - 51.1 %) 6.0 L Monocytes % (1.7 - 9.3 %) 5.2 Eosinophils % (0 - 5 %) 0.8 Basophils % (0.0 - 2.0 %) 0.4 Absolute Granulocytes (1.4 - 6.5 /CUMM) 14.4 H Segmented Neutrophils (42.2 - 75.2 %) 89 H Absolute Lymphocytes (1.2 - 3.4 /CUMM) 1.0 L Lymphocytes (20.5 - 51.1 %) 5 L Monocytes (1.7 - 9.3 %) 5 Absolute Monocytes (0.10 - 0.60 /CUMM) 0.9 H Absolute Eosinophils (0.0 - 0.7 /CUMM) 0.1 Basophils (0.0 - 2.0 %) 1 Absolute Basophils (0.0 - 0.2 /CUMM) 0.1 Platelet Estimate (ADEQUATE) VERIFIED BY SMEAR Normocytic RBCs VERIFIED Normochromic RBCs VERIFIED Other Body Source Fld Total RBCs Counted (%) 100 A/P; 77 y/o F with pmh sig for hypertension, hyperlipidemia, peripheral vascular disease with bilateral carotid stenosis, diabetes mellitus, coronary artery disease status post drug-eluting stent, presented with generalized weakness and admitted with sepsis secondary to urinary tract infection. Patient currently on ceftriaxone. Urine culture growing gram-negative rods. We 'll follow-up on the cultures and adjust and hepatic sick accordingly. Patient had high lactate on admission which has normalized. Continue the rest of the medications. DVt px; Hep sq. PT eval.
[2017-06-30 13:48] VITALS: BP 140/80
[2017-06-30 16:00] VITALS: BP 150/78
[2017-06-30 22:52] VITALS: BP 160/65
[2017-07-01 06:43] VITALS: BP 178/88
--- NOTE | 2017-07-01 08:09 | PN- Housestaff ---
Mauricio LOWE,Jaxson 07/01/17 0809: Subjective Follow-up For: UTI Subjective: Seen and examined at [facility]. Afebrile o/n with no increased shortness of breath or dysuria. Later patient was noted to be tachycardic. Review of Systems Constitutional: Reports: see HPI. Objective Last 24 Hrs of Vital Signs/I&O Vital Signs Date Time Temp Pulse Resp B/P B/P Pulse O2 O2 Flow FiO2 Mean Ox Delivery Rate 07/01 1423 98.0 114 18 160/81 93 Nasal 2.0L Cannula 07/01 1353 Nasal 2.0L Cannula 07/01 0949 88 148/68 07/01 0827 102 176/88 07/01 0800 94 Nasal 2.0L Cannula 07/01 0643 98.1 103 18 178/88 94 Nasal 2.0L Cannula 06/30 2252 98.2 100 20 160/65 95 Nasal 2.0L Cannula 06/30 2219 100 160/65 06/30 1634 96 150/78 Intake & Output 07/01 1600 07/01 0800 07/01 0000 Intake Total 800 240 Output Total Balance 800 240 Intake, Oral 800 240 Number 0 Bowel Movements Physical Exam General Appearance: Alert, Oriented X3, Cooperative Assessment/Plan Assessment: 77-year-old very pleasant lady with a past medical history significant for hypertension, hyperlipidemia, 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 Impression Generalized weakness. Setting of fevers and a UA suggestive of an infection possibly a UTI is the main etiology of patient's weakness. * Urine growing Klebsiella sensitive to cephalosposrin. On ceftraixone day 3, afebrile with no urinary symptoms. However leukocytosis trended up. * HX OF diseases: Hypertension, hyperlipidemia, carotid stenosis, diabetes,CAD Plan * Continue ceftriaxone treatment of klebsiella UTI (may need to revisit ABX choice if wbc keeps on trending up) * If continues to be tachy, will consider increasing metoprolol evening dose by 12.5mg * Will follow up on urine and blood cultures * Continue sliding scale * Continue Accu-Chek 3 times a day * Follow-up OT PT recommendations Problem List: 1. Cystitis Pain Ratin Pain Location: knees Pain Goal: Remain pain free Pain Plan: per pathway Tomorrow's Labs & Rationales: Cynthia Hager MD 07/01/17 1208: Attending MD Review Statement Attending Statement Attending MD Statement: examined this patient, discuss w/resident/PA/MEDICAL SUPERINTENDENT, agreed w/resident/PA/MEDICAL SUPERINTENDENT, reviewed EMR data (avail), discussed with nursing, discussed with case mgmt, reviewed images, amended to note Attending Assessment/Plan: Patient seen and examined, this morning she claimed that she had very bad cough to the point that she vomited. She denies any abdominal pain or feeling nauseous. She denies any shortness of breath. Urine culture growing Klebsiella. Vital Signs Date Time Temp Pulse Resp B/P B/P Pulse O2 O2 Flow FiO2 Mean Ox Delivery Rate 07/01 0949 88 148/68 07/01 0827 102 176/88 07/01 0800 94 Nasal 2.0L Cannula 07/01 0643 98.1 103 18 178/88 94 Nasal 2.0L Cannula 06/30 2252 98.2 100 20 160/65 95 Nasal 2.0L Cannula 06/30 2219 100 160/65 06/30 1634 96 150/78 05 1600 Nasal 2.0L Cannula 06/30 1600 96 150/78 06/30 1348 98.3 105 22 140/80 93 Room Air 06/30 1237 98.6 22 92 Nasal 2.0L Cannula on exam; aox3, nad. cv; s1,s2, rrr resp; clear abd; soft, nt, bs+ ext; no edema. Laboratory Tests 07/01 1140 Chemistry Sodium Pending Potassium Pending Chloride Pending Carbon Dioxide Pending Anion Gap Pending BUN Pending Creatinine Pending BUN/Creatinine Ratio Pending Hematology CBC w Diff Pending WBC Pending RBC Pending Hgb Pending Hct Pending MCV Pending MCH Pending MCHC Pending RDW Pending Plt Count Pending MPV Pending A/P; 77 y/o F with pmh sig for hypertension, hyperlipidemia, peripheral vascular disease with bilateral carotid stenosis, diabetes mellitus, coronary artery disease status post drug-eluting stent, presented with generalized weakness and admitted with sepsis secondary to urinary tract infection. Urine culture growing Klebsiella. We'll continue ceftriaxone. We'll likely switch to oral antibiotics tomorrow. She was evaluated by physical therapy. I asked her about getting some enzymatic but currently she's not feeling nauseous. Patient on heparin subcutaneous for DVT prophylaxis. Possible discharge tomorrow.
[2017-07-01 09:49] VITALS: BP 148/68
[2017-07-01 12:52] LABS: ABSOLUTE BASOPHIL COUNT 0 /CUMM (0.0-0.2); ABSOLUTE EOSINOPHIL COUNT 0 /CUMM (0.0-0.7); ABSOLUTE LYMPH COUNT 1.7 /CUMM (1.2-3.4); ABSOLUTE MONOCYTE COUNT 1.4 /CUMM (0.10-0.60); EOSINOPHIL % 0.2 % (0-5); RBC DISTRIBUTION WIDTH 15.1 % (11.5-14.5)
[2017-07-01 13:12] LABS: ABSOLUTE GRANULOCYTE CT 14.6 /CUMM (1.4-6.5); BASOPHIL % 0.2 % (0.0-2.0); GRANULOCYTE % 82.2 % (42.2-75.2); HEMATOCRIT 37.9 % (37-47); MEAN CORPUSCULAR HGB 28.1 PG (27.0-31.0); MEAN CORPUSCULAR HGB CONC 32.5 G/DL (33.0-37.0); MEAN CORPUSCULAR VOLUME 86.4 FL (81.0-99.0); MEAN PLATELET VOLUME 8.2 FL (7.4-10.4); PLATELET COUNT 470 /CUMM (130-400); RED BLOOD CELL CT 4.39 /CUMM (4.20-5.40)
[2017-07-01 13:15] LABS: WHITE BLOOD CELL COUNT 17.8 /CUMM (4.8-10.8)
[2017-07-01 14:23] VITALS: BP 160/81
--- NOTE | 2017-07-01 17:52 | RADIOLOGY REPORT ---
EXAMINATION: XR PORTABLE CHEST CLINICAL INFORMATION: Tachycardia. Short of breath. COMPARISON: 06/29/2017 TECHNIQUE: Portable frontal view of the chest was obtained. FINDINGS: Low lung volumes. Increased hazy right basilar opacity. No significant pleural effusion. No pneumothorax. The cardiomediastinal silhouette is unchanged. IMPRESSION: Low lung volumes. Increased hazy opacity at the right base could represent developing atelectasis or pneumonia.
[2017-07-01 21:58] VITALS: BP 160/80
[2017-07-02 06:19] VITALS: BP 150/84
--- NOTE | 2017-07-02 07:14 | PN- Housestaff ---
Mauricio LOWE,Jaxson 07/02/17 0714: Subjective Follow-up For: UTI PNA Subjective: And examined at bedside. States that her breathing is much better compared to yesterday, denies any fever or chills, increased cough or sputum production, chest pain or palpitation. She does note that yesterday she had increased cough to point where she vomited. A MAXIMUM TEMPERATURE of 101 was reported last night. Review of Systems Constitutional: Reports: see HPI. Objective Last 24 Hrs of Vital Signs/I&O Vital Signs Date Time Temp Pulse Resp B/P B/P Pulse O2 O2 Flow FiO2 Mean Ox Delivery Rate 07/02 928 Nasal 2.0L Cannula 07/02 09 114 150/84 07/02 0800 94 Room Air 2.0L 07/02 0619 98.5 114 20 150/84 94 07/02 0000 94 Nasal 2.0L Cannula 07/01 2158 98.7 103 18 160/80 95 Nasal 2.0L Cannula 07/01 2052 102 160/80 07/01 1938 99.0 07/01 1911 Nasal 1.0L Cannula 07/01 1839 101.0 07/01 1642 114 156/84 07/01 1600 93 Nasal 2.0L Cannula 07/01 1423 98.0 114 18 160/81 93 Nasal 2.0L Cannula 07/01 1353 Nasal 2.0L Cannula Intake & Output 07/02 1600 07/02 0800 07/02 0000 Intake Total 240 Output Total Balance 240 Intake, Oral 240 Physical Exam General Appearance: Alert, Oriented X3, Cooperative Skin Temp/Moisture Exam: Warm/Dry Lymphatic: Cervical nl Lungs: mild basilar crackles Abdomen: Normal Bowel Sounds, Soft, No Tenderness Extremities: No Edema Current Medications: Current Medications Sig/Srinath Start time Last Medication Dose Route Stop Time Status Admin Acetaminophen 650 MG .STK-MED ONE 07/01 1832 DC PO 07/01 1833 Acetaminophen 325 MG Q6P PRN 06/29 2345 AC 07/01 PO 1839 Atorvastatin Calcium 20 MG 1700 06/30 1700 AC 07/01 PO 1642 Azithromycin 250 MG DAILY 07/02 1000 AC 07/02 PO 1236 Azithromycin 500 MG DAILY 07/01 1918 DC 07/01 Dextrose/Water 250 ML IV 2049 Bisacodyl 10 MG ONCE PRN 07/01 0830 DC SC 07/01 1430 Ceftriaxone Sodium 1,000 MG 2200 06/30 2200 AC 07/01 IV 2050 Docusate Sodium 100 MG BID 07/01 1000 AC 07/02 PO 0903 Duloxetine HCl 30 MG DAILY 06/30 1000 AC 07/02 PO 0903 Ezetimibe 10 MG DAILY 06/30 1000 AC 07/02 PO 0902 Furosemide 60 MG DAILY 07/01 1000 AC 07/02 PO 0902 Heparin Sodium 5,000 UNIT Q8 06/29 2346 AC 07/02 (Porcine) SC 0510 Insulin Aspart 0 TIDAC 06/30 0800 AC 07/02 SC 1236 Lidocaine 1 PAT DAILY 07/01 1011 AC 07/02 EXT 0907 Metoprolol Tartrate 75 MG BID 06/30 2200 AC 07/02 PO 0903 Metronidazole 500 MG IQ8 07/02 1600 AC N/A 1 UNIT IV Nifedipine 20 MG TID 06/30 0400 AC 07/02 PO 0905 Nystatin 1 KATHERIN TID 07/01 1740 AC 07/02 TOP 0907 Omeprazole 40 MG DAILY AC 06/30 0700 AC 07/02 PO 0510 Polyethylene Glycol 17 GM DAILY 07/01 1000 AC 07/02 PO 0905 Last 24 Hrs of Lab/Robert Results Last 24 Hrs of Labs/Mics: Laboratory Tests 07/02/17 0938: Anion Gap 16, Estimated GFR 40 L, BUN/Creatinine Ratio 15.4, CBC w Diff NO MAN DIFF REQ, RBC 4.15 L, MCV 85.9, MCH 28.2, MCHC 32.8 L, RDW 14.9 H, MPV 8.3, Gran % 84.3 H, Lymphocytes % 8.5 L, Monocytes % 7.0, Eosinophils % 0.2, Basophils % 0, Absolute Granulocytes 15.1 H, Absolute Lymphocytes 1.5, Absolute Monocytes 1.3 H, Absolute Eosinophils 0, Absolute Basophils 0 07/01/17 1710: D-Dimer High Sensitivty 595 H Microbiology 07/02 916 NASOPHARYN: Influenza Virus A & B Rapid Smear - COLB 07/01 1929 BLOOD: Blood Culture - RES 07/01 1814 BLOOD: Blood Culture - RES Assessment/Plan Assessment: 77-year-old very pleasant lady with a past medical history significant for hypertension, hyperlipidemia, 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 Impression * Persistent leukocytosis. In the setting of fever and increased respiratory symptoms, chest x-ray was obtained which was suggestive of right-sided opacity. Aspiration respiratory symptoms that started earlier than the 48 hour period this is more likely community-acquired rather than hospital pneumonia, azithromycin was started last night for empiric coverage of atypical pathogens. She is already on ceftriaxone for UTI therefore she has empiric coverage for strept. Her account of vomiting yesterday and in the setting of a right-sided opacity which is a common finding in aspiration, and in consideration of persistent leukocytosis and a fever, will additionally cover for anaerobes for possible aspiration pneumonia. Given that the patient is allergic to penicillin , we will initiate metronidazole therapy. * * Fever. Most likely of infectious etiology. The UTI is from Klebsiella which is cephalosporin sensitive and therefore the ceftriaxone coverage is adequate. Most likely her fever is secondary to the pneumonia which could be either community-acquired or aspiration. * Tachycardia. Sinus per EKG. Likely secondary to fever. Will continue to monitor as patient does not have any chest pain therefore no further workup is needed. Consider increasing metoprolol dose by 12.5 mg if tachycardia is persistent despite medical optimization for her infection. * UTI. Cultures growing Klebsiella sensitive to cephalosporin. Continue ceftriaxone (day 4). * HX OF diseases: Hypertension, hyperlipidemia, carotid stenosis, diabetes,CAD Plan * Continue ceftriaxone treatment of klebsiella UTI * Continue azithromycin for atypical coverage and metronidazole for anaerobes in the setting of possible aspiration. * If continues to be tachy, will consider increasing metoprolol evening dose by 12.5mg * Will follow up on urine and blood cultures * Continue sliding scale * Continue Accu-Chek 3 times a day * Follow-up OT PT recommendations Problem List: 1. UTI (urinary tract infection) 2. PNA (pneumonia) Pain Ratin Pain Location: knees Pain Goal: Remain pain free Pain Plan: per pathway Tomorrow's Labs & Rationales: cbc-infection jayeshpsusie Read MD,Cynthia 07/02/17 1141: Attending Review Statement Attending Statement Attending Statement: examined this patient, discuss w/resident/PA/UPHOLSTERER APPRENTICE, agreed w/resident/PA/UPHOLSTERER APPRENTICE, reviewed EMR data (avail), discussed with nursing, discussed with case mgmt, reviewed images, amended to note Attending Assessment/Plan: Patient seen and examined, overall feeling better today. Her breathing has improved. She's not having that much cough. Last night she spiked a fever 101. Vital Signs Date Time Temp Pulse Resp B/P B/P Pulse O2 O2 Flow FiO2 Mean Ox Delivery Rate 07/02 928 Nasal 2.0L Cannula 07/02 09 114 150/84 07/02 0800 94 Room Air 2.0L 07/02 0619 98.5 114 20 150/84 94 07/02 0000 94 Nasal 2.0L Cannula 07/01 2158 98.7 103 18 160/80 95 Nasal 2.0L Cannula 07/01 2052 102 160/80 07/01 1938 99.0 07/01 1911 Nasal 1.0L Cannula 07/01 1839 101.0 07/01 1642 114 156/84 07/01 1600 93 Nasal 2.0L Cannula 07/01 1423 98.0 114 18 160/81 93 Nasal 2.0L Cannula 07/01 1353 Nasal 2.0L Cannula on exam: aox3, nad. cv; s1,s2, rrr resp; clear b/l abd; soft, nt, ns+ ext; no edema. Laboratory Tests 07/02 07/01 0938 1710 Chemistry Sodium (137 - 145 mmol/L) 137 Potassium (3.5 - 5.1 mmol/L) 4.0 Chloride (98 - 107 mmol/L) 99 Carbon Dioxide (22 - 30 mmol/L) 22 Anion Gap (5 - 16) 16 BUN (7 - 17 mg/dL) 20 H Creatinine (0.5 - 1.0 mg/dL) 1.3 H Estimated GFR (>60 ml/min) 40 L BUN/Creatinine Ratio (7 - 25 %) 15.4 Coagulation D-Dimer High Sensitivty (0 - 243 ng/ml) 595 H Hematology CBC w Diff NO MAN DIFF REQ WBC (4.8 - 10.8 /CUMM) 17.9 H RBC (4.20 - 5.40 /CUMM) 4.15 L Hgb (12.0 - 16.0 G/DL) 11.7 L Hct (37 - 47 %) 35.6 L MCV (81.0 - 99.0 FL) 85.9 MCH (27.0 - 31.0 PG) 28.2 MCHC (33.0 - 37.0 G/DL) 32.8 L RDW (11.5 - 14.5 %) 14.9 H Plt Count (130 - 400 /CUMM) 467 H MPV (7.4 - 10.4 FL) 8.3 Gran % (42.2 - 75.2 %) 84.3 H Lymphocytes % (20.5 - 51.1 %) 8.5 L Monocytes % (1.7 - 9.3 %) 7.0 Eosinophils % (0 - 5 %) 0.2 Basophils % (0.0 - 2.0 %) 0 Absolute Granulocytes (1.4 - 6.5 /CUMM) 15.1 H Absolute Lymphocytes (1.2 - 3.4 /CUMM) 1.5 Absolute Monocytes (0.10 - 0.60 /CUMM) 1.3 H Absolute Eosinophils (0.0 - 0.7 /CUMM) 0 Absolute Basophils (0.0 - 0.2 /CUMM) 0 A/P: 77 y/o F with pmh sig for hypertension, hyperlipidemia, peripheral vascular disease with bilateral carotid stenosis, diabetes mellitus, coronary artery disease status post drug-eluting stent, presented with generalized weakness and admitted with sepsis secondary to urinary tract infection. Last time patient spiked a fever. She also had vomited yesterday after coughing so hard. Her chest x-ray shows possibility off infiltrate versus atelectasis. Clinical picture is consistent with possible aspiration pneumonia. Patient currently getting ceftriaxone and azithromycin. We will add Flagyl. Will continue the Lasix. Continue the rest of the medications. DVT px: Heparin subcutaneous. Patient has a bed available at rehabilitation and likely she came and discharged to rehabilitation tomorrow if stable
[2017-07-02 11:10] LABS: ABSOLUTE BASOPHIL COUNT 0 /CUMM (0.0-0.2); ABSOLUTE EOSINOPHIL COUNT 0 /CUMM (0.0-0.7); ABSOLUTE GRANULOCYTE CT 15.1 /CUMM (1.4-6.5); ABSOLUTE LYMPH COUNT 1.5 /CUMM (1.2-3.4); ABSOLUTE MONOCYTE COUNT 1.3 /CUMM (0.10-0.60); BASOPHIL % 0 % (0.0-2.0); EOSINOPHIL % 0.2 % (0-5); GRANULOCYTE % 84.3 % (42.2-75.2); HEMATOCRIT 35.6 % (37-47); MEAN CORPUSCULAR HGB 28.2 PG (27.0-31.0); MEAN CORPUSCULAR HGB CONC 32.8 G/DL (33.0-37.0); MEAN CORPUSCULAR VOLUME 85.9 FL (81.0-99.0); MEAN PLATELET VOLUME 8.3 FL (7.4-10.4); PLATELET COUNT 467 /CUMM (130-400); RBC DISTRIBUTION WIDTH 14.9 % (11.5-14.5); RED BLOOD CELL CT 4.15 /CUMM (4.20-5.40)
[2017-07-02 11:14] LABS: WHITE BLOOD CELL COUNT 17.9 /CUMM (4.8-10.8)
[2017-07-02 14:54] VITALS: BP 144/78
[2017-07-02 22:33] VITALS: BP 138/86
[2017-07-03 06:59] VITALS: BP 153/70
--- NOTE | 2017-07-03 07:35 | PN- Housestaff ---
Mauricio LOWE,Jaxson 07/03/17 0735: Subjective Follow-up For: PNA INFLUENZA Subjective: Seen and examined at bedside. Remained afebrile overnight with tachycardia resolving. She endorses improvement in her breathing, no cp/palpitation. No acute o/n event. Review of Systems Constitutional: Reports: see HPI. Objective Last 24 Hrs of Vital Signs/I&O Vital Signs Date Time Temp Pulse Resp B/P B/P Pulse O2 O2 Flow FiO2 Mean Ox Delivery Rate 07/03 1437 18 96 Room Air Room Air 07/03 1404 97.4 80 18 150/64 95 Nasal 2.0L Cannula 07/03 1105 18 95 Room Air Room Air 07/03 0936 98.8 94 20 148/68 07/03 0855 94 148/68 07/03 0800 93 Nasal 2.0L Cannula 07/03 0659 98.8 93 20 153/70 93 Nasal 2.0L Cannula 07/03 0000 Nasal 2.0L Cannula 07/02 2233 98.9 112 20 138/86 95 Nasal Cannula 07/02 2056 88 142/80 Intake & Output 07/03 1600 07/03 0800 07/03 0000 Intake Total 910 390 Output Total Balance 910 390 Intake, IV 110 150 Intake, Oral 800 240 Number 3 Bowel Movements Physical Exam General Appearance: Alert, Oriented X3, Cooperative Other Physical Findings: Skin No Significant Lesion Skin Temp/Moisture Exam: Warm/Dry Sepsis Skin Exam (color): Normal for Ethnicity HEENT Mucous Membr. moist/pink Neck Supple, No JVD Lymphatic Cervical nl Cardiovascular Normal S1, Normal S2 Lungs mild bibasilar crackles/rhonchi Abdomen Normal Bowel Sounds, Soft Neurological Normal Speech, Sensation Intact, drcreased strength on right upper and lower extremity compared to left (chronic). Extremities +3 edema b/l LE Current Medications: Current Medications Sig/Srinath Start time Last Medication Dose Route Stop Time Status Admin Acetaminophen 325 MG Q6P PRN 06/29 2345 DCD 07/01 PO 1839 Atorvastatin Calcium 20 MG 1700 06/30 1700 DCD 07/02 PO 1747 Azithromycin 250 MG DAILY 07/02 1000 DCD 07/03 PO 0854 Bisacodyl 10 MG DAILY PRN 07/02 2345 DCD TN Ceftriaxone Sodium 1,000 MG 2200 06/30 2200 DCD 07/02 IV 2057 Docusate Sodium 100 MG BID 07/01 1000 DCD 02 PO 0854 Duloxetine HCl 30 MG DAILY 06/30 1000 DCD / PO 0854 Ezetimibe 10 MG DAILY 06/30 1000 DCD / PO 0854 Ferrous Sulfate 325 MG TID 07/03 1600 DCD PO Furosemide 60 MG DAILY 07/01 1000 DCD / PO 0854 Heparin Sodium 5,000 UNIT Q8 06/29 2346 DCD 07/03 (Porcine) SC 1338 Insulin Aspart 0 TIDAC 06/30 0800 DCD 07/03 SC 1339 Lidocaine 1 PAT DAILY 07/01 1011 DCD 07/03 EXT 0855 Metoprolol Tartrate 75 MG BID 06/30 2200 DCD 07/03 PO 0854 Metronidazole 500 MG IQ8 07/02 1600 DCD 07/03 N/A 1 UNIT IV 0739 Nifedipine 20 MG TID 06/30 0400 DCD 07/03 PO 0855 Nystatin 1 KATHERIN TID 07/01 1740 DCD 07/03 TOP 0901 Omeprazole 40 MG DAILY AC 06/30 0700 DCD 07/03 PO 0617 Polyethylene Glycol 17 GM DAILY 07/01 1000 DCD 07/03 PO 0901 Sitagliptin Phosphate 50 MG DAILY 07/04 1000 DCD PO Last 24 Hrs of Lab/Robert Results Last 24 Hrs of Labs/Mics: Laboratory Tests 07/03/17 0728: Anion Gap 11, Estimated GFR 40 L, BUN/Creatinine Ratio 17.7, CBC w Diff NO MAN DIFF REQ, RBC 3.80 L, MCV 85.9, MCH 27.6, MCHC 32.1 L, RDW 14.7 H, MPV 7.9, Gran % 75.7 H, Lymphocytes % 14.2 L, Monocytes % 7.9, Eosinophils % 1.7, Basophils % 0.5, Absolute Granulocytes 8.6 H, Absolute Lymphocytes 1.6, Absolute Monocytes 0.9 H, Absolute Eosinophils 0.2, Absolute Basophils 0.1 Assessment/Plan Assessment: 77-year-old very pleasant lady with a past medical history significant for hypertension, hyperlipidemia, 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 Impression * Pneumonia. most likely aspiration PNA, she has defervesced clinically and leukocytosis resolving after initiating metronidazole. Will continue with zithromax for aditional 3 more days for the initial coverage of CAP. Augmentin contraindicated due to allergies. * Fever. now resolved. Most likely of infectious etiology. The UTI is from Klebsiella which is cephalosporin sensitive and therefore the ceftriaxone coverage is adequate. Most likely her fever is secondary to the pneumonia which could be either community-acquired or aspiration. * Klebsiella UTI. DAY 5 of ceftriaxone, will transition to oral cephalosphorin to complete a 7 day treatment. * Tachycardia. Sinus per EKG. now resolved. Likely secondary to fever. Will continue to monitor as patient does not have any chest pain therefore no further workup is needed. Consider increasing metoprolol dose by 12.5 mg if tachycardia is persistent despite medical optimization for her infection. * UTI. Cultures growing Klebsiella sensitive to cephalosporin. Continue ceftriaxone (day 4). * HX OF diseases: Hypertension, hyperlipidemia, carotid stenosis, diabetes,CAD Plan * Day 5 of ceftriaxone trx for UTI, will transition to oral cephalex on discharge today * Continue azithromycin for atypical coverage and metronidazole for anaerobes in the setting of possible aspiration (pt seem to be improving on these meds). * Medically stable for STR discharge, awaiting insurance approval Problem List: 1. PNA (pneumonia) Pain Ratin Pain Location: [facility] Pain Goal: Remain pain free Pain Plan: [facility] Tomorrow's Labs & Rationales: CBC BEP Jacek LOWE,[facility] 07/03/17 1202: Attending MD Review Statement Attending Statement Attending MD Statement: examined this patient, discuss w/resident/PA/MOLD MACHINE OPERATOR, agreed w/resident/PA/MOLD MACHINE OPERATOR, reviewed EMR data (avail), discussed with nursing, discussed with case mgmt, reviewed images, amended to note Attending Assessment/Plan: Patient seen and examined, today she is feeling better. Denies any further fever spike. Her tachycardia is also better. Vital Signs Date Time Temp Pulse Resp B/P B/P Pulse O2 O2 Flow FiO2 Mean Ox Delivery Rate 07/03 1105 18 95 Room Air Room Air 07/03 0936 98.8 94 20 148/68 07/03 0855 94 148/68 07/03 0800 93 Nasal 2.0L Cannula 07/03 0659 98.8 93 20 153/70 93 Nasal 2.0L Cannula 07/03 0000 Nasal 2.0L Cannula 07/023 98.9 112 20 138/86 95 Nasal Cannula 07/02 2056 88 142/80 07/02 1748 89 144/78 07/02 1454 97.5 89 20 144/78 95 Room Air on exam; aox3, nad. cv; s1, s2, rrr resp; mild b/l basal crackles. abd; soft, nt, bs+ ext; no edema. Laboratory Tests 07/03 727 Chemistry Sodium (137 - 145 mmol/L) 140 Potassium (3.5 - 5.1 mmol/L) 4.1 Chloride (98 - 107 mmol/L) 103 Carbon Dioxide (22 - 30 mmol/L) 26 Anion Gap (5 - 16) 11 BUN (7 - 17 mg/dL) 23 H Creatinine (0.5 - 1.0 mg/dL) 1.3 H Estimated GFR (>60 ml/min) 40 L BUN/Creatinine Ratio (7 - 25 %) 17.7 Hematology CBC w Diff NO MAN DIFF REQ WBC (4.8 - 10.8 /CUMM) 11.3 H RBC (4.20 - 5.40 /CUMM) 3.80 L Hgb (12.0 - 16.0 G/DL) 10.5 L Hct (37 - 47 %) 32.7 L MCV (81.0 - 99.0 FL) 85.9 MCH (27.0 - 31.0 PG) 27.6 MCHC (33.0 - 37.0 G/DL) 32.1 L RDW (11.5 - 14.5 %) 14.7 H Plt Count (130 - 400 /CUMM) 475 H MPV (7.4 - 10.4 FL) 7.9 Gran % (42.2 - 75.2 %) 75.7 H Lymphocytes % (20.5 - 51.1 %) 14.2 L Monocytes % (1.7 - 9.3 %) 7.9 Eosinophils % (0 - 5 %) 1.7 Basophils % (0.0 - 2.0 %) 0.5 Absolute Granulocytes (1.4 - 6.5 /CUMM) 8.6 H Absolute Lymphocytes (1.2 - 3.4 /CUMM) 1.6 Absolute Monocytes (0.10 - 0.60 /CUMM) 0.9 H Absolute Eosinophils (0.0 - 0.7 /CUMM) 0.2 Absolute Basophils (0.0 - 0.2 /CUMM) 0.1 A/P; 77 y/o F with pmh sig for hypertension, hyperlipidemia, peripheral vascular disease with bilateral carotid stenosis, diabetes mellitus, coronary artery disease status post drug-eluting stent, presented with generalized weakness and admitted with sepsis secondary to urinary tract infection she had vomiting and likely had developed aspiration pneumonia during the hospital course. Currently she is treated with ceftriaxone/azithro and Flagyl. We will likely switch her to oral antibiotics. So therapy recommends rehabilitation for her and patient also wants to go to rehabilitation. Her medications will be straightened out through her primary care doctor. Her insurance is denying that he had at this time. Once we have a safe discharge plan, patient will be able to get discharged on oral antibiotics. DVT px; hep sq.
[2017-07-03 08:16] LABS: ABSOLUTE BASOPHIL COUNT 0.1 /CUMM (0.0-0.2); ABSOLUTE EOSINOPHIL COUNT 0.2 /CUMM (0.0-0.7); ABSOLUTE GRANULOCYTE CT 8.6 /CUMM (1.4-6.5); ABSOLUTE LYMPH COUNT 1.6 /CUMM (1.2-3.4); ABSOLUTE MONOCYTE COUNT 0.9 /CUMM (0.10-0.60); BASOPHIL % 0.5 % (0.0-2.0); EOSINOPHIL % 1.7 % (0-5); GRANULOCYTE % 75.7 % (42.2-75.2); HEMATOCRIT 32.7 % (37-47); MEAN CORPUSCULAR HGB 27.6 PG (27.0-31.0); MEAN CORPUSCULAR HGB CONC 32.1 G/DL (33.0-37.0); MEAN CORPUSCULAR VOLUME 85.9 FL (81.0-99.0); MEAN PLATELET VOLUME 7.9 FL (7.4-10.4); PLATELET COUNT 475 /CUMM (130-400); RBC DISTRIBUTION WIDTH 14.7 % (11.5-14.5); WHITE BLOOD CELL COUNT 11.3 /CUMM (4.8-10.8)
[2017-07-03] MEDS ORDERED: AZITHROMYCIN250 M1 PO (08:20)
[2017-07-03] MEDS ORDERED: CEPHALEXIN500 M3 PO (08:20)
[2017-07-03] MEDS ORDERED: LIDODERM1 EACH EXT (08:26)
[2017-07-03] MEDS ORDERED: PROCARDIA10 MG PO (08:26)
--- NOTE | 2017-07-03 08:27 | Discharge Summary ---
Visit Information Visit Dates Admission Date: 06/29/17 Discharge Date: 07/03/17 Hospital Course Course Hospital Course: 77 yo lady with PMHX of HTN, HLD, carotid stenosis R CEA, left occluded, DM, CAD S/P stent, came from assisted living for evaluation of weakness and almost a fall, whihch she prevented by slowly lowering herself to the gorund. Denied hitting her head, no fever/chills,sob, cp/palpitation,abdominal pain or dysuria. Vitals: Tmax 101.3, pulse 94, RR 18, blood pressure 195/103, saturating 95% on room air On exam: A O 3, cooperative, no acute distress, neck supple, JVD normal, no lymphadenopathy, mucosa moist, no focal neurological deficit, trace leg edema, no obvious skin rashes or inflammation CVS: S1-S2, RRR, systolic murmur. RS: Clear to auscultate bilaterally. Abdomen: Soft, NT, ND, bowel sounds present. Labs: WBC 16.5, hemoglobin 13.5, hematocrit 41.5, platelets 541, neutrophils 87% , sodium 142, potassium 5.2, chloride 99, bicarbonate 25, BUN 31, creatinine 1.3 , anion gap 18, glucose 246, calcium 9.3, lactic acid 2.6, LFT unremarkable, influenza negative UA: Trace ketones, nitrite positive, leukocyte esterase positive. Urine culture was remarkable for Klebsiella. CXR:No change, no acute infiltrates. Widened mediastinum stable. Pt was admitted and started on ceftriaxone for treatment for UTI. On day 2 of hospitalization patient develop fevers with a peristent leukocytosis, and was noted to be tachycardic. An repeat CXR was obtained which showed right lung opacity which was suggestiof either earlier pneumonia or atelactasis. He was started on Azithromycin for empiric coverage of CAP (She was already on ceftriaxone for her UTI). The following day, fevers had abated, however she was still tachycardic and short of breath. After reporting that she had earlier vomited the previous day to due to excessive cough, Aspiration PNA was now strongly suspected given the right sided opacity on CXR. She was started on Metronidazole Allergies: Coded Allergies: Penicillins (Intermediate, HIVES 06/29/17) amoxicillin (DRY MOUTH 06/29/17) Discharge Instructions Medications at Discharge Discharge Medications: Stop taking the following medications: Nifedipine (Nifedipine ER) [address] ORAL DAILY Furosemide (Furosemide) 20 MG TAB ORAL DAILY Bumetanide (Bumetanide) 1 MG TAB ORAL TWICE DAILY Metronidazole (Flagyl 25O MG Tablet) 250 MG TAB ORAL EVERY 8 HOURS Days = 7 Continue taking these medications: Aspirin (Children's Aspirin) 81 MG TAB.CHEW Comments: NOT GIVEN IN HOSPITAL Ferrous Sulfate (Ferrous Sulfate) 325 MG TAB 325 Milligram ORAL THREE TIMES DAILY Days = 30 Comments: Last Taken:04/06/15 Time:1000 Metoprolol Tartrate (Lopressor) 25 MG TAB 75 Milligram ORAL TWICE DAILY Comments: Last Taken:04/06/15 Time:1000 Cholecalciferol (Vitamin D3) 1,000 UNIT TABLET 2,000 Units ORAL DAILY Comments: NOT GIVEN IN HOSPITAL Omeprazole (Prilosec) 40 MG ECC 1 Capsule ORAL DAILY Comments: Last Taken:04/06/15 Time:0500 TRAMADOL HCL (Tramadol) 50 MG TAB 1 Tablet ORAL Q4H as needed for PAIN Comments: Last Taken:NOT GIVEN IN HOSPITAL Time: Simvastatin (Zocor) 80 MG TAB 1 Tablet ORAL Every night Comments: Last Taken:NOT GIVEN IN HOSPITAL Time: Duloxetine Hydrochloride (Cymbalta) 30 MG CAP 1 Capsule ORAL DAILY Comments: Last Taken:04/06/15 Time:1000 Sitagliptin Phosphate (Januvia) 50 MG TABLET 1 Tablet ORAL DAILY Qty = 30 Start taking the following new medications: Cephalexin (Cephalexin) 500 MG CAPSULE 500 Milligram ORAL EVERY 8 HOURS Qty = 9 No Refills Instructions: TAKE FOR 3 MORE DAYS Comments: NOT GIVEN IN HOSPITAL Azithromycin (Azithromycin) 250 MG TABLET 250 Milligram ORAL DAILY Qty = 2 No Refills Instructions: TAKE FOR 2 MORE DAYS Comments: Last Taken:07/03/17 Time:0900 AM Nifedipine (Procardia) 10 MG CAPSULE 20 Milligram ORAL THREE TIMES DAILY Qty = 90 No Refills Comments: Last Taken:07/03/17 Time:0900 AM Lidocaine (Lidoderm) 5 % ADH..PATCH 1 Patch ON SKIN DAILY Qty = 30 No Refills Comments: Last Taken:07/03/17 Time:0900 AM Furosemide (Furosemide) 20 MG TABLET 60 Milligram ORAL DAILY Qty = 90 No Refills Comments: Last Taken:07/03/17 Time:0900 AM Metronidazole (Metronidazole) 500 MG TABLET 1 Tablet ORAL EVERY 8 HOURS Qty = 8 No Refills Comments: Last Taken:07/03/17 Time:0730 AM IV DOSE GIVEN TODAY 500 MG
[2017-07-03 09:36] VITALS: BP 148/68
[2017-07-03] MEDS ORDERED: METRONIDAZOLE500 M1 PO (10:52)
[2017-07-03] MEDS ORDERED: FUROSEMIDE20 M1 PO (14:00)
[2017-07-03] MEDS ORDERED: JANUVIA50 M1 PO (14:03)
[2017-07-03 14:04] VITALS: BP 150/64
--- NOTE | 2017-07-03 14:24 | Patient Discharge Instructions ---
Discharge Instructions General Discharge Information You were seen/treated for: Urinary infection Pneumoniae Special Instructions: seek medical attention if you develop fevers Please f/u with your primary care within 1 week Acute Coronary Syndrome Inclusion Criteria At DC or during hospital stay patient has or had the following: ACS DIAGNOSIS No Discharge Core Measures Meds if any: Prescribed or Continued at Discharge Meds if any: NOT Prescribed or Continued at Discharge Congestive Heart Failure Inclusion Criteria At DC or during hospital stay patient has or had the following: CHF DIAGNOSIS No Discharge Core Measures Meds if any: Prescribed or Continued at Discharge Meds if any: NOT Prescribed or Continued at Discharge Cerebrovascular accident Inclusion Criteria At DC or during hospital stay patient has or had the following: CVA/TIA Diagnosis No Discharge Core Measures Meds if any: Prescribed or Continued at Discharge Meds if any: NOT Prescribed or Continued at Discharge Venous thromboembolism Inclusion Criteria VTE Diagnosis No VTE Type NONE VTE Confirmed by (Test) NONE Discharge Core Measures - Per Current guidelines, there needs to be overlap - treatment for the first 5 days of Warfarin therapy. - If discharged on Warfarin prior to 5 days of - overlap therapy, the patient will need to be - assessed for post discharge needs including - *Post discharge parental anticoagulation - *Warfarin and/or parental anticoagulation education - *Follow up date to check INR post discharge At least 5 days overlap therapy as Inpatient No Meds if any: Prescribed or Continued at Discharge Note: Overlap Therapy is Warfarin and Anticoagulant Meds if any: NOT Prescribed or Continued at Discharge
== END 2017-07-03 16:31 | disposition home health service (06) | DRG 871 ==
LOC: ERH 18:35 → ERHI 22:16 → 2NB 22:16 → ENRESERV 06-30 00:12 → ENTRNSPT 06-30 00:41 → 2NB 06-30 00:57 → CMPTRNSPT 06-30 07:00 → 2NB 07-01 09:59 → ENPENDDIS 07-03 14:33 → 2NB 07-03 16:31
PROVIDERS: Physician Assistant Medical; Student in an Organized Health Care Education/Training Program
DX: A41.9 Sepsis, unspecified organism (principal); J69.0 Pneumonitis due to inhalation of food and vomit; E11.22 Type 2 diabetes mellitus with diabetic chronic kidney disease; E87.2 Acidosis; I13.0 Hypertensive heart and chronic kidney disease with heart failure and stage 1 through stage 4 chronic kidney disease, or unspecified chronic kidney disease; I50.32 Chronic diastolic (congestive) heart failure; E86.0 Dehydration; E87.5 Hyperkalemia; Z79.84 Long term (current) use of oral hypoglycemic drugs; I16.0 Hypertensive urgency; N18.9 Chronic kidney disease, unspecified; D47.3 Essential (hemorrhagic) thrombocythemia; B96.1 Klebsiella pneumoniae [K. pneumoniae] as the cause of diseases classified elsewhere; E78.5 Hyperlipidemia, unspecified; Z95.5 Presence of coronary angioplasty implant and graft; I73.9 Peripheral vascular disease, unspecified; I65.23 Occlusion and stenosis of bilateral carotid arteries; Z88.1 Allergy status to other antibiotic agents; Z88.0 Allergy status to penicillin; Z87.440 Personal history of urinary (tract) infections; M19.90 Unspecified osteoarthritis, unspecified site; M48.00 Spinal stenosis, site unspecified; F32.9 Major depressive disorder, single episode, unspecified; Z82.49 Family history of ischemic heart disease and other diseases of the circulatory system; Z80.51 Family history of malignant neoplasm of kidney; Z80.0 Family history of malignant neoplasm of digestive organs; Z80.8 Family history of malignant neoplasm of other organs or systems; K21.9 Gastro-esophageal reflux disease without esophagitis; Z66 Do not resuscitate; N30.90 Cystitis, unspecified without hematuria; Z79.82 Long term (current) use of aspirin; R32 Unspecified urinary incontinence; R00.0 Tachycardia, unspecified
CPT/HCPCS: 2NBP; ERO; 36415; 71045; 81001; 82436; 87040; 87086; 87804; 87804-59; 93005; 93010; 96374; 96375; 97110-GO; 97161-GP; 97166-GO; 97530-GO; 99291; J0131; J0456; J0696; J1644; J1940; J7060

== ENCOUNTER 2017-07-11 10:12 | Inpatient (IN) | payer OTHER ==
[~2017-07-11] VITALS: Ht 152.4 cm; Wt 95.7 kg
[~2017-07-11 10:12] MED LIST changes: +AZITHROMYCIN250 M1 PO; +CEPHALEXIN500 M3 PO; -CHILDREN'S ASPI81 M1; +CHILDREN'S ASPI81 M1 PO; +FUROSEMIDE20 M1 PO; +JANUVIA50 M1 PO; +LIDODERM1 EACH EXT; +LOPRESSOR50 M1 PO; +METRONIDAZOLE500 M1 PO; +OMEPRAZOLE40 M1 PO; -PRILOSEC40 MG PO; +PROCARDIA10 MG PO; -SIMVASTATIN80 MG PO; +ZOCOR40 M1 PO
--- NOTE | 2017-07-11 10:16 | ED GENERAL ADULT ---
History of Present Illness General Chief Complaint: General Adult Stated Complaint: LETHARGY/WEAKNESS Source: patient, old records, EMS Exam Limitations: no limitations Vital Signs & Intake/Output Vital Signs & Intake/Output Vital Signs Date Time Temp Pulse Resp B/P B/P Pulse O2 O2 Flow FiO2 Mean Ox Delivery Rate 07/11 1312 86 18 168/70 98 Room Air Room Air 07/11 1227 97.0 88 20 97 Room Air 07/11 1021 97.8 87 20 197/78 97 Room Air Allergies Coded Allergies: atorvastatin (From LIPITOR) (Severe, SWOLLEN TONGUE AND DRY MOUTH 07/11/17) Penicillins (Intermediate, HIVES 06/29/17) amoxicillin (DRY MOUTH 06/29/17) Reconcile Medications Aspirin (Children's Aspirin) 81 MG TAB.CHEW 1 TAB PO DAILY HEART HEALTH ( Reported) Bumetanide 2 MG TABLET 1 TAB PO DAILY WATER RETENTION (Reported) Cholecalciferol (Vitamin D3) 1,000 UNIT TABLET 2,000 UNITS PO DAILY BONE STRENGTH (Reported) Diazepam 5 MG TABLET 1 TAB PO Q8P PRN SPASMS (Reported) Ezetimibe (Zetia) 10 MG TABLET 1 TAB PO DAILY CHOLESTEROL (Reported) Ferrous Sulfate 325 MG (65 MG IRON) TABLET 1 TAB PO DAILY SUPPLEMENT ( Reported) Furosemide 20 MG TABLET 60 MG PO DAILY fluid Metoprolol Tartrate (Lopressor) 50 MG TABLET 1.5 TAB PO BID BP (Reported) Mirabegron (Myrbetriq) 25 MG TAB.ER.24H 1 TAB PO DAILY BLADDER HEALTH ( Reported) Nifedipine (Procardia) 10 MG CAPSULE 20 MG PO TID BP Omeprazole 40 MG CAPSULE.DR 1 CAP PO DAILY GI (Reported) Simvastatin (Zocor*) 40 MG TABLET 1 TAB PO QPM CHOLESTEROL (Reported) Sitagliptin Phosphate (Januvia) 50 MG TABLET 1 TAB PO DAILY diabetes ( Reported) Sodium Bicarbonate 650 MG TABLET 1 TAB PO BID SUPPLEMENT (Reported) Triage Nurses Notes Reviewed? yes HPI: Patient was recently discharged on July 03 after an admission for pneumonia. Patient lives at assisted living. Patient states that she's been having profuse diarrhea since she was discharged. This morning she felt too weak to even get out of bed. Patient called her aide who subsequently called her nurse and the patient was brought in for evaluation. Patient denies any chest pain or shortness of breath. There is no fever but she has had chills this morning. She denies any abdominal pain. There is no nausea or vomiting. Past History Medical History Any Pertinent Medical History? 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 FH: CAD (coronary artery disease), Onset: 50-60. BROTHER (COPD). FH: cancer FH: COPD (chronic obstructive pulmonary disease) FATHER BROTHER (myocardial infarction). MOTHER FH: cancer SON SON (Mi in 40's). MOTHER ( from cancer of the liver and kidney). Hx Contributory? No Review of Systems Review of Systems Constitutional: Reports: see HPI, chills, weakness. EENTM: Reports: no symptoms. Respiratory: Reports: see HPI, cough. Cardiovascular: Reports: no symptoms. GI: Reports: see HPI, diarrhea. Genitourinary: Reports: no symptoms. Musculoskeletal: Reports: no symptoms. Skin: Reports: no symptoms. Neurological/Psychological: Reports: no symptoms. Hematologic/Endocrine: Reports: no symptoms. Immunologic/Allergic: Reports: no symptoms. All Other Systems: Reviewed and Negative Physical Exam Physical Exam General Appearance: well developed/nourished, alert, awake, anxious, mild distress Head: atraumatic, normal appearance Eyes: Bilateral: PERRL, EOMI. Ears, Nose, Throat: normal pharynx, DRY MUCUS MEMBRANES Neck: normal inspection, supple, full range of motion Respiratory: normal breath sounds, chest non-tender, no respiratory distress, lungs clear Cardiovascular: regular rate/rhythm, normal peripheral pulses Gastrointestinal: normal bowel sounds, soft, non-tender, no organomegaly Back: PERIRECTAL EXCORIATIONS ALL THE WAY DOWN TO THE INNER THIGHS. tHERE ARE AREAS THAT APPEAR FUNGAL IN NATURE WELL. Extremities: normal capillary refill, normal range of motion Neurologic/Psych: no motor/sensory deficits, awake, alert, oriented x 3, normal mood/affect Lymphatic: no anterior cervical pillo Core Measures ACS in differential dx? No CVA/TIA Diagnosis: No Sepsis Present: Yes Sepsis Focused Exam Completed? Yes Progress Differential Diagnoses I considered the following diagnoses in my evaluation of the patient: [C.DIFF, UTI, PNEUMONIA, INFUENZA, ELECTROLYTE ABNORMALITY] Plan of Care: Orders Procedure Date/time Status Heart Healthy Diet 07/11 D Active Patient Data 07/11 1322 Active ED Holding Orders 07/11 1320 Active Admit to inpatient 07/11 1320 Active Vital Signs 07/11 1320 Active Code Status 07/11 1320 Active Straight Cath 07/11 1152 Active C.DIFFICILE 07/11 1039 Complete Telemetry/Woodworking Machine Offbearer 07/11 1015 Active RAPID VIRAL INFLUENZA A 07/11 1015 Complete URINALYSIS 07/11 1015 Active TROPONIN LEVEL 07/11 1015 Complete COMPREHENSIVE METABOLIC PANEL 07/11 1015 Complete CBC WITHOUT DIFFERENTIAL 07/11 1015 Complete EKG 07/11 1015 Active Current Medications Sig/Srinath Start time Last Medication Dose Stop Time Status Admin Metronidazole 500 MG ONCE ONE 07/11 1330 AC (Flagyl) 07/11 1429 N/A 1 UNIT (No Carrier) Laboratory Tests 07/11/17 1050: Anion Gap 14, Estimated GFR 44 L, BUN/Creatinine Ratio 13.3, Glucose 212 H, Calcium 9.5, Total Bilirubin 0.4, AST 19, ALT 32, Alkaline Phosphatase 115, Troponin I < 0.01, Total Protein 6.6, Albumin 3.7, Globulin 2.9, Albumin/ Globulin Ratio 1.3, CBC w Diff MAN DIFF ORDERED, RBC 4.32, MCV 86.5, MCH 28.1, MCHC 32.5 L, RDW 15.3 H, MPV 7.5, Gran % 85.9 H, Lymphocytes % 8.6 L, Monocytes % 3.9, Eosinophils % 1.5, Basophils % 0.1, Absolute Granulocytes 14.9 H, Absolute Lymphocytes 1.5, Absolute Monocytes 0.7 H, Absolute Eosinophils 0.3 , Absolute Basophils 0, Platelet Estimate INCREASED, Polychromasia 1+, Anisocytosis 1+ Microbiology 07/11 1200 STOOL: Clostridium difficile Toxin A & B - COMP 07/11 1040 NASOPHARYN: Influenza Virus A & B Rapid Smear - COMP Diagnostic Imaging: Viewed by Me: Radiology Read. Discussed w/RAD: Radiology Read. CXR Impression: PATIENT: JHONATHAN HOGAN PRESENT AGE: 77 PATIENT ACCOUNT NO: [id number] : 40 LOCATION: [facility] ORDERING PHYSICIAN: Fernando Walker MD SERVICE DATE: 07/11/17 EXAM TYPE: RAD - XRY- PORTABLE CHEST XRAY EXAMINATION: XR PORTABLE CHEST CLINICAL INFORMATION: Cough and fever. Concern for pneumonia. COMPARISON: Chest x-ray 07/01/2017 TECHNIQUE: Portable frontal view of the chest was obtained. FINDINGS: Cardiac silhouette is normal in size. Lungs are well aerated. No lobar consolidation. No pleural effusion or pneumothorax. Improved aeration of the right lung base. IMPRESSION: Improved aeration of the right lung base without focal consolidation. DICTATED BY: Jared Scruggs MD DATE/TIME DICTATED:07/11/171116 NATURAL RESOURCE ECONOMIST: GISELLA DATE/TIME TRANSCRIBED:07/11/171116 CONFIDENTIAL, DO NOT COPY WITHOUT APPROPRIATE AUTHORIZATION. <Electronically signed in Other Vendor System> SIGNED BY: Jared Scruggs MD 07/11/17 1121 Initial ED EKG: none Departure Departure Disposition: STILL A PATIENT Condition: Stable Clinical Impression Primary Impression: C. difficile diarrhea Referrals: Danyelle LOWE,Yoel Jackson (PCP/Family) Departure Forms: Customer Survey General Discharge Information Admission Note Spoke With: Moni LOWE,Nancy Documentation of Exam: Documentation of any treatments & extenuating circumstances including Concerns Regarding Discharge (functional status, medication knowledge or non-compliance, living conditions, etc.) that warrant an admission rather than observation: [PT' S WBC INCREASED FROM 11 TO 17, PT IS HAVING PROFUSE DIARRHEA, FLAGY, GI CONSULT, IV FLUIDS, PT IS FROM ASSITED LIVING AND WAS TO WEAK TO GET OUT OF BED THIS MORNING. SHE IS AT HIGH RISK IF SHE WERE TO BE DISCHARGED AT THIS TIME.] Critical Care Note Critical Care Note Critical Care Time: non-applicable
[2017-07-11] MEDS ORDERED: FERROUS SULFAT325 M3 PO (10:44)
[2017-07-11] MEDS ORDERED: MYRBETRIQ25 M1 PO (10:44)
[2017-07-11] MEDS ORDERED: DIAZEPAM5 M1 PO (10:46)
[2017-07-11] MEDS ORDERED: ZETIA10 M1 PO (10:47)
[2017-07-11] MEDS ORDERED: BUMETANIDE2 M1 PO (10:47)
[2017-07-11] MEDS ORDERED: SODIUM BICARBO650 M1 PO (10:49)
[2017-07-11 10:59] LABS: ABSOLUTE BASOPHIL COUNT 0 /CUMM (0.0-0.2); ABSOLUTE EOSINOPHIL COUNT 0.3 /CUMM (0.0-0.7); ABSOLUTE GRANULOCYTE CT 14.9 /CUMM (1.4-6.5); ABSOLUTE LYMPH COUNT 1.5 /CUMM (1.2-3.4); ABSOLUTE MONOCYTE COUNT 0.7 /CUMM (0.10-0.60); BASOPHIL % 0.1 % (0.0-2.0); EOSINOPHIL % 1.5 % (0-5); GRANULOCYTE % 85.9 % (42.2-75.2); HEMATOCRIT 37.3 % (37-47); MEAN CORPUSCULAR HGB 28.1 PG (27.0-31.0); MEAN CORPUSCULAR HGB CONC 32.5 G/DL (33.0-37.0); MEAN CORPUSCULAR VOLUME 86.5 FL (81.0-99.0); MEAN PLATELET VOLUME 7.5 FL (7.4-10.4); PLATELET COUNT 650 /CUMM (130-400); RBC DISTRIBUTION WIDTH 15.3 % (11.5-14.5); RED BLOOD CELL CT 4.32 /CUMM (4.20-5.40); WHITE BLOOD CELL COUNT 17.4 /CUMM (4.8-10.8)
--- NOTE | 2017-07-11 11:21 | RADIOLOGY REPORT ---
EXAMINATION: XR PORTABLE CHEST CLINICAL INFORMATION: Cough and fever. Concern for pneumonia. COMPARISON: Chest x-ray 07/01/2017 TECHNIQUE: Portable frontal view of the chest was obtained. FINDINGS: Cardiac silhouette is normal in size. Lungs are well aerated. No lobar consolidation. No pleural effusion or pneumothorax. Improved aeration of the right lung base. IMPRESSION: Improved aeration of the right lung base without focal consolidation.
--- NOTE | 2017-07-11 14:03 | History & Physical ---
Imani LOWE,[facility] 07/11/17 1402: General Information and HPI History of Present Illness: Mr. Chavez is a 77-year-old female with past medical history of HTN, HLD, carotid stenosis s/p R CEA, DM, CAD S/P stent, HFpEF, chronic back pain, osteoarthritis, spinal stenosis now wheelchair-bound, and hysterectomy who presents from assisted living with weakness and lethargy. The patient was recently discharged from [facility] on 07/03/2017. She was here for aspiration pneumonia and UTI. She was taking antibiotics cephalexin and metronidazole which she stopped 2 days ago for this. After being discharged from the hospital, she felt well. However, she was having diarrhea that has started now hospital. She was previously continent of stool but since her last admission has been incontinent stool. Nurses clean her up every couple hours and notes that the stool is loose and nonbloody. This morning, she woke up weak and lethargic and could not get out of bed. She called an aid to help her and they thought she needed further evaluation. She had an episode of night sweats last night as well. Otherwise, she notes that she had an episode of pleuritic chest pain yesterday but has since resolved. No nausea, vomiting, bowel pain, or shortness of breath. Patient is former smoker and denies alcohol or drug use. Allergies/Medications Allergies: Coded Allergies: atorvastatin (From LIPITOR) (Severe, SWOLLEN TONGUE AND DRY MOUTH 07/11/17) Penicillins (Intermediate, HIVES 06/29/17) amoxicillin (DRY MOUTH 06/29/17) Home Med list Aspirin (Children's Aspirin) 81 MG TAB.CHEW 1 TAB PO DAILY HEART HEALTH ( Reported) Bumetanide 2 MG TABLET 1 TAB PO DAILY WATER RETENTION (Reported) Cholecalciferol (Vitamin D3) 1,000 UNIT TABLET 2,000 UNITS PO DAILY BONE STRENGTH (Reported) Diazepam 5 MG TABLET 1 TAB PO Q8P PRN SPASMS (Reported) Ezetimibe (Zetia) 10 MG TABLET 1 TAB PO DAILY CHOLESTEROL (Reported) Ferrous Sulfate 325 MG (65 MG IRON) TABLET 1 TAB PO DAILY SUPPLEMENT ( Reported) Furosemide 20 MG TABLET 60 MG PO DAILY fluid Metoprolol Tartrate (Lopressor) 50 MG TABLET 1.5 TAB PO BID BP (Reported) Mirabegron (Myrbetriq) 25 MG TAB.ER.24H 1 TAB PO DAILY BLADDER HEALTH ( Reported) Nifedipine (Procardia) 10 MG CAPSULE 20 MG PO TID BP Omeprazole 40 MG CAPSULE.DR 1 CAP PO DAILY GI (Reported) Simvastatin (Zocor*) 40 MG TABLET 1 TAB PO QPM CHOLESTEROL (Reported) Sitagliptin Phosphate (Januvia) 50 MG TABLET 1 TAB PO DAILY diabetes ( Reported) Sodium Bicarbonate 650 MG TABLET 1 TAB PO BID SUPPLEMENT (Reported) Past History Travel History Traveled to [place] past 21 day No Medical History Neurological: NONE, restless leg syndrome EENT: NONE Cardiovascular: NONE (peripheral vascular disease), CAD (s/p angioplasty), CHF, hypertension, hyperlipidemia, BLOCKED L CAROTID ARTERY Respiratory: NONE Gastrointestinal: NONE Hepatic: NONE Renal: UTI Musculoskeletal: chronic back pain, osteoarthritis, spinal stenosis Psychiatric: NONE, depression Endocrine: DM Blood Disorders: NONE Cancer(s): NONE UNIFIED COMMUNICATIONS ENGINEER/Reproductive: NONE (hysterectomy), UTI Other Medical Hx: bilateral carotid artery disease History of MRSA: No History of VRE: No History of CDIFF: No Influenza Vaccine: 04/25/17 Surgical History Surgical History: non-contributory, N Past Family/Social History Family History Relations & Conditions if any FATHER (myocardial infarction at age 52 and later from a CVA). FH: CAD (coronary artery disease), Onset: 50-60. BROTHER (COPD). FH: cancer FH: COPD (chronic obstructive pulmonary disease) FATHER BROTHER (myocardial infarction). MOTHER FH: cancer SON SON (Mi in 40's). MOTHER ( from cancer of the liver and kidney). Psychosocial History Services at Home: Home Health Aide Smoking Status: Former Smoker ETOH Use: denies use Illicit Drug Use: denies illicit drug use Review of Systems Review of Systems Constitutional: Reports: see HPI. EENTM: Reports: no symptoms. Cardiovascular: Reports: see HPI. Respiratory: Reports: no symptoms. GI: Reports: no symptoms. Genitourinary: Reports: see HPI. Musculoskeletal: Reports: no symptoms. Skin: Reports: no symptoms. Neurological/Psychological: Reports: no symptoms. Hematologic/Endocrine: Reports: no symptoms. Immunologic/Allergic: Reports: no symptoms. All Other Systems: Reviewed and Negative Exam & Diagnostic Data Last 24 Hrs of Vital Signs/I&O Vital Signs Date Time Temp Pulse Resp B/P B/P Pulse O2 O2 Flow FiO2 Mean Ox Delivery Rate 07/11 1312 86 18 168/70 98 Room Air Room Air 07/11 1227 97.0 88 20 97 Room Air 07/11 1021 97.8 87 20 197/78 97 Room Air Intake & Output 07/11 1600 07/11 0800 07/11 0000 Intake Total Output Total Balance Patient 98.883 kg Weight Weight Reported by Patient Measurement Method Physical Exam General Appearance Alert, Oriented X3, Cooperative, No Acute Distress Skin No Rashes, No Breakdown, No Significant Lesion Sepsis Skin Exam (color): Normal for Ethnicity Cardiovascular Regular Rate, Normal S1, Normal S2 Lungs mild wheezing Abdomen point tenderness in epigastrium, no suprapubic tenderness Neurological Normal Speech, Normal Tone, Sensation Intact Extremities No Edema, Normal Pulses, No Tenderness/Swelling Last 24 Hrs of Labs/Robert: Laboratory Tests 07/11/17 1050: Anion Gap 14, Estimated GFR 44 L, BUN/Creatinine Ratio 13.3, Glucose 212 H, Calcium 9.5, Total Bilirubin 0.4, AST 19, ALT 32, Alkaline Phosphatase 115, Troponin I < 0.01, Total Protein 6.6, Albumin 3.7, Globulin 2.9, Albumin/ Globulin Ratio 1.3, CBC w Diff MAN DIFF ORDERED, RBC 4.32, MCV 86.5, MCH 28.1, MCHC 32.5 L, RDW 15.3 H, MPV 7.5, Gran % 85.9 H, Lymphocytes % 8.6 L, Monocytes % 3.9, Eosinophils % 1.5, Basophils % 0.1, Absolute Granulocytes 14.9 H, Absolute Lymphocytes 1.5, Absolute Monocytes 0.7 H, Absolute Eosinophils 0.3 , Absolute Basophils 0, Platelet Estimate INCREASED, Polychromasia 1+, Anisocytosis 1+ Microbiology 07/11 1200 STOOL: Clostridium difficile Toxin A & B - COMP 07/11 1040 NASOPHARYN: Influenza Virus A & B Rapid Smear - COMP Assessment/Plan Assessment: Mr. Chavez is a 77-year-old female with past medical history of HTN, HLD, carotid stenosis s/p R CEA, DM, CAD S/P stent, HFpEF, chronic back pain, osteoarthritis, spinal stenosis now wheelchair-bound, and hysterectomy who presents from assisted living with weakness and lethargy. On presentation, vital signs routine 87.8, HR 87, RR 20, BP 197/78, saturating 97% on room air. Blood pressure improved at 168/70. Laboratories were significant for white blood cell count 17.4, granulocytes 85.9% renal 6, hemoglobin 12.1, platelets 650, creatinine 1.2 (baseline 1.3) sees, normal LFTs, troponin less than 0.01. Chest x-ray showed improving aeration and no focal consolidation. C. difficile toxin and flu were negative. She was treated with nystatin and metronidazole in the emergency room. She'll be admitted to general medicine and treated for the following problems: 1. Likely severe C. difficile infection 2. Deconditioning 3. Thrombocytosis #Likely severe C. difficile infection: Even though the C. difficile toxin is negative, history is highly suggestive of C. difficile infection. White blood cell count is greater than 15,000, indicating severe disease. -C. difficile PCR -Vancomycin by mouth 125 mg every 6 hours -Fluids #Deconditioning: Patient describes weakness and lethargy since her last admission. -Physical therapy and OT consult #Thrombocytosis: Likely reactive in setting of infection. -Continue to monitor #Chronic medical problems: -Continue home medications DVT prophylaxis with heparin Heart healthy diet DNR/DNI As Ranked By This Provider Problem List: 1. C. difficile diarrhea Core Measures/Misc (02/09) Acute Coronary Syndrome ACS Diagnosis: No Congestive Heart Failure Congestive Heart Failure Diagnosis No Cerebrovascular Accident CVA/TIA Diagnosis: No VTE (View Protocol) VTE Risk Factors Age>40 No Mechanical VTE Prophylaxis d/t N/A MechProphylax Ordered No VTE Pharm Prophylaxis d/t NA PharmProphylax ordered Sepsis (View protocol) Sepsis Present: No Jun Rutherford 07/11/17 1500: Resident Review Statement Resident Statement: examined this patient, discussed with international trade analyst, agreed with international trade analyst, discussed with family, reviewed EMR data (avail), discussed with nursing , discussed with case mgmt, reviewed images, amended to note Other Findings: This is a 77-year-old female with past medical history significant for heart failure with preserved ejection fraction, diabetes mellitus, hyperlipidemia, GERD, hypertension, bilateral carotid artery disease, right carotid endarterectomy, back pain, osteoarthritis, spinal stenosis, depression, coronary artery disease, peripheral vascular disease was brought in by ambulance to the [facility] for evaluation of weakness, diarrhea for few days. She was recently admitted to [facility] for urinary tract infection and pneumonia, discharged on Keflex and Flagyl. Offnote she completed antibiotics 2 days back. Patient reports ongoing diarrhea since discharge from hospital on June 30. Patient has been having diarrhea daily, loose and watery, every 2-3 hours. No blood in stools. Denies any nausea, vomiting, constipation, abdominal pain or discomfort. Denies any fever, however reports chills and sweats. Review of systems was negative except for above. Patient reports extreme weakness this morning, couldn't get out of her bed. She called her aid for the help. Baseline she was wheelchair bound. Because of generalized weakness and now ongoing diarrhea she was brought in by ambulance to the emergency room. Vitals afebrile, heart rate 80; respiratory rate 20, blood pressure 196/70, saturating at 98 on ra. Labs leukocytosis 17.4, hemoglobin 12 and hematocrit 37, platelets 650. BUN 16 creatinine 1.2 LFTs normal Troponin normal C. difficile was negative Flu negative chest x-ray normal She received 1 dose of IV Flagyl in the emergency room 1. C. difficile diarrhea Patient presented with ongoing diarrhea for last 1 week after being started on antibiotics. She reports ongoing loose stools, chills. She is afebrile with elevated WBC count in the emergency room. She is hemodynamically stable. C. difficile toxin was negative. However given her recent antibiotic use and given her extensive diarrhea will treat her for non severe C. difficile diarrhea * Admit to general med for management of diarrhea * Monitor vitals every shift * Closely monitor for fever and leukocytosis * Monitor for any signs and symptoms of peritonitis, toxic megacolon * Given her recent use of Flagyl, will start her on oral vancomycin 125 mg every 6 hours. * IV fluid gentle hydration with normal saline * Will send stool for C. difficile PCR * Probiotic * Closely monitor for any worsening diarrhea, hypotension, worsening leukocytosis, fever. 2. Thrombocytosis Chronic 3. Generalized deconditioning PTOT consult Heart failure with preserved ejection fraction continue Bumex and Lasix Diabetes continue insulin sliding scale Hyperlipidemia continue statin and zetia GERD continue omeprazole Hypertension continue nifedipine and metoprolol DNR/DNI Regular diet DVT prophylaxis subcutaneous heparin Pain pathway ordered Td Choudhary MD 07/12/17 1623: Attending MD Review Statement Attending Statement Attending MD Statement: examined this patient, discuss w/resident/PA/DUPLICATING MACHINE OPERATOR, agreed w/resident/PA/DUPLICATING MACHINE OPERATOR, reviewed EMR data (avail) Attending Assessment/Plan: 77F PMH HTN, HLD, carotid stenosis s/p R CEA, DM, CAD S/P stent, HFpEF, chronic back pain, osteoarthritis, spinal stenosis now wheelchair-bound, recently discharged after being treated for UTI and aspiration pneumonia, discharged on Cephalexin and Flagyl, returns with profuse, watery, foul-smelling diarrhea, dehydration, weakness, and malaise. Afebrile, hemodynamically stable. Initial C.diff negative in ED. Plan - Admit to general medicine - Send C.diff for PCR - Start PO Vancomycin - Stool culture - IV hydration - Continue home medications - DVT PPx
[2017-07-11 18:40] VITALS: BP 137/72
[2017-07-11 21:38] VITALS: BP 138/68
[2017-07-12 00:48] VITALS: BP 152/54
[2017-07-12 06:20] VITALS: BP 156/52
--- NOTE | 2017-07-12 07:43 | PN- Housestaff ---
See Addendum Subjective Follow-up For: ?severe c.diff deconditioining thrombocytosis Subjective: No acute events overnight. Saw pt this AM who stated she slept fine last night. States she is still trying to get more sleep. No n/v/d or other complaints. Review of Systems Constitutional: Reports: no symptoms. EENTM: Reports: no symptoms. Cardiovascular: Reports: no symptoms. Respiratory: Reports: no symptoms. Gastrointestinal: Reports: no symptoms. Genitourinary: Reports: no symptoms. Musculoskeletal: Reports: no symptoms. Objective Last 24 Hrs of Vital Signs/I&O Vital Signs Date Time Temp Pulse Resp B/P B/P Pulse O2 O2 Flow FiO2 Mean Ox Delivery Rate 07/12 0620 97.8 83 20 156/52 94 07/12 0048 99.7 89 20 152/54 92 07/11 2253 104 07/11 2138 99.2 104 20 138/68 93 Room Air 07/11 2102 104 138/68 07/11 1840 98.1 99 18 137/72 93 Room Air 07/11 1612 96.8 94 20 182/62 96 Room Air 07/11 1607 96.8 94 20 182/62 07/11 1451 97.2 86 18 165/70 98 Room Air 07/11 1450 95 Room Air Room Air 07/11 1312 86 18 168/70 98 Room Air Room Air 07/11 1227 97.0 88 20 97 Room Air Intake & Output 07/12 1600 07/12 0800 07/12 0000 Intake Total 660 900 Output Total Balance 660 900 Intake, IV 600 300 Intake, Oral 60 600 Number 0 0 Bowel Movements Patient 211 lb Weight Weight Bed scale Measurement Method Physical Exam General Appearance: Alert, Oriented X3, Cooperative, No Acute Distress, sleepy but cooperative with exam. asking for more sleep. Cardiovascular: Regular Rate, Normal S1, Normal S2 Lungs: Clear to Auscultation, Normal Air Movement Abdomen: increased BS. nontender. soft Extremities: 1+ edema b/l Vascular: 2+ radial pulses Current Medications: Current Medications Sig/Srinath Start time Last Medication Dose Route Stop Time Status Admin Acetaminophen 650 MG .STK-MED ONE 07/12 0050 DC PO 07/12 0051 Acetaminophen 650 MG Q6P PRN 07/11 1400 AC 07/12 PO 1057 Acetaminophen 1,000 MG Q6P PRN 07/11 1400 AC IV Aspirin 0 .STK-MED ONE 07/11 1549 DC PO Aspirin 81 MG DAILY 07/11 1349 AC 07/12 PO 0853 Atorvastatin Calcium 40 MG 1700 07/11 1700 DC PO Bumetanide 2 MG DAILY 07/12 1000 AC PO Cholecalciferol 1,000 IU DAILY 07/11 1349 AC 07/12 PO 0851 Diazepam 5 MG Q8P PRN 07/11 1400 AC PO Ezetimibe 10 MG DAILY 07/12 1000 AC 07/12 PO 0853 Ferrous Sulfate 325 MG DAILY 07/12 1000 AC 07/12 PO 0855 Furosemide 60 MG DAILY 07/12 1000 AC 07/12 PO 0853 Heparin Sodium 0 .STK-MED ONE 07/11 1549 DC (Porcine) .ROUTE Heparin Sodium 5,000 UNIT Q8 07/11 1400 AC 07/12 (Porcine) SC 0638 Insulin Aspart 0 TIDAC 07/11 1700 AC 07/12 SC 0851 Metoprolol Tartrate 75 MG BID 07/11 2200 AC 07/12 PO 0855 Metronidazole 500 MG ONCE ONE 07/11 1330 DC 07/11 N/A 1 UNIT IV 07/11 1429 1330 Nifedipine 20 MG TID 07/11 1600 AC 07/12 PO 0855 Nystatin 1 KATHERIN ONCE ONE 07/11 1215 DC 07/11 TOP 07/11 1216 1226 Omeprazole 40 MG DAILY AC 07/11 1350 AC 07/12 PO 0651 Simvastatin 40 MG DAILY@1700 07/11 1835 AC 07/11 PO 2100 Sodium Bicarbonate 650 MG BID 07/11 2200 AC 07/12 PO 0853 Sodium Chloride 250 ML BOLUS ONE 07/11 2345 DC 07/11 IV 07/12 0044 2343 Sodium Chloride 1,000 ML .[id number] 07/11 1345 AC 07/12 IV 07/12 1624 0654 Vancomycin HCl 125 MG Q6 07/12 0130 AC 07/12 PO 0651 Vancomycin HCl 125 MG Q6 07/11 1445 CO 07/11 PO 1607 Last 24 Hrs of Lab/Robert Results Last 24 Hrs of Labs/Mics: Laboratory Tests 07/12/17 0616: Anion Gap 11, Estimated GFR 44 L, BUN/Creatinine Ratio 13.3, CBC w Diff NO MAN DIFF REQ, RBC 3.91 L, MCV 86.5, MCH 28.2, MCHC 32.6 L, RDW 15.0 H, MPV 8.2, Gran % 81.2 H, Lymphocytes % 10.1 L, Monocytes % 7.4, Eosinophils % 1.0, Basophils % 0.3, Absolute Granulocytes 13.9 H, Absolute Lymphocytes 1.7, Absolute Monocytes 1.3 H, Absolute Eosinophils 0.2, Absolute Basophils 0 07/11/17 1445: Urinalysis LIGHT H, Urine Color YEL, Urine Clarity HAZY H, Urine pH 6.0, Ur Specific Mcfarland 1.020, Urine Protein 100 H, Urine Ketones NEG, Urine Nitrite NEG, Urine Bilirubin NEG, Urine Urobilinogen 0.2, Ur Leukocyte Esterase MOD H, Ur Microscopic SEDIMENT EXAMINED, Urine RBC 25-50 H, Urine WBC > 75 H, Ur Epithelial Cells FEW, Urine Bacteria MOD H, Hyaline Casts RARE H, Micro UA Comment BUDDING YEAST H, Urine Hemoglobin MOD H, Urine Glucose NEG Microbiology 07/11 1200 STOOL: Clostridium difficile Toxin A & B - COMP Assessment/Plan Assessment: Mr. Chavez is a 77-year-old female with past medical history of HTN, HLD, carotid stenosis s/p R CEA, DM, CAD S/P stent, HFpEF, chronic back pain, osteoarthritis, spinal stenosis now wheelchair-bound, and hysterectomy who presents from assisted living with weakness and lethargy. On presentation, vital signs routine 87.8, HR 87, RR 20, BP 197/78, saturating 97% on room air. Blood pressure improved at 168/70. Laboratories were significant for white blood cell count 17.4, granulocytes 85.9% renal 6, hemoglobin 12.1, platelets 650, creatinine 1.2 (baseline 1.3) sees, normal LFTs, troponin less than 0.01. Chest x-ray showed improving aeration and no focal consolidation. C. difficile toxin and flu were negative. She was treated with nystatin and metronidazole in the emergency room. She'll be admitted to general medicine and treated for the following problems: 1. Likely severe C. difficile infection 2. Deconditioning 3. Thrombocytosis #Likely severe C. difficile infection: Even though the C. difficile toxin is negative, history is highly suggestive of C. difficile infection. White blood cell count is greater than 15,000, indicating severe disease. Remains afebrile WBC 17.4 -> 17.1 -C. difficile PCR -Vancomycin by mouth 125 mg every 6 hours -Fluids #Deconditioning: Patient describes weakness and lethargy since her last admission. -Physical therapy and OT consult #Thrombocytosis: Likely reactive in setting of infection. Plt 650 -> 567 -Continue to monitor #CKD Cr 1.2 -currently baseline, cont to monitor #Chronic medical problems: -cont novolog sliding scale -Continue lasix, bumex, furrous sulfate, ezetimibine, sodium bicarb, simvastatin , nifedipine, diazepam, omeprazole, vit d, aspirin, DVT prophylaxis with heparin Heart healthy diet DNR/DNI Problem List: 1. Recurrent Clostridium difficile diarrhea 2. Physical deconditioning Pain Ratin Pain Location: none Pain Goal: Pain 4 or less Pain Plan: pain pathway Tomorrow's Labs & Rationales: cbc bep
[2017-07-12 08:36] LABS: ABSOLUTE BASOPHIL COUNT 0 /CUMM (0.0-0.2); ABSOLUTE EOSINOPHIL COUNT 0.2 /CUMM (0.0-0.7); ABSOLUTE GRANULOCYTE CT 13.9 /CUMM (1.4-6.5); ABSOLUTE LYMPH COUNT 1.7 /CUMM (1.2-3.4); ABSOLUTE MONOCYTE COUNT 1.3 /CUMM (0.10-0.60); BASOPHIL % 0.3 % (0.0-2.0); GRANULOCYTE % 81.2 % (42.2-75.2); HEMATOCRIT 33.8 % (37-47); MEAN CORPUSCULAR HGB 28.2 PG (27.0-31.0); MEAN CORPUSCULAR HGB CONC 32.6 G/DL (33.0-37.0); MEAN CORPUSCULAR VOLUME 86.5 FL (81.0-99.0); MEAN PLATELET VOLUME 8.2 FL (7.4-10.4); PLATELET COUNT 567 /CUMM (130-400); RED BLOOD CELL CT 3.91 /CUMM (4.20-5.40); WHITE BLOOD CELL COUNT 17.1 /CUMM (4.8-10.8)
[2017-07-12 15:08] VITALS: BP 140/70
--- NOTE | 2017-07-12 16:26 | Admission Certification ---
Admission Certification Certification Statement - As attending physician, I certify that at the time of - admission, based on clinical presentation, severity of - symptoms, need for further diagnostic testing and - therapeutic interventions, and risk of adverse outcomes - without in-hospital treatment, in my clinical assessment, - this patient requires an acute hospital stay for a minimum - of two nights or longer. I have also considered psychsocial - factors such as support system, advanced age, financial - issues, cognitive issues, and failed out-patient treatments, - past re-admission history, safety of patient, and lack of - compliance as applicable. Specific rationale supporting this admission is: diarrhea, dehydration, weakness
[2017-07-12 22:25] VITALS: BP 150/58
[2017-07-13 06:58] VITALS: BP 150/54
[2017-07-13 07:59] LABS: ABSOLUTE BASOPHIL COUNT 0.1 /CUMM (0.0-0.2); ABSOLUTE EOSINOPHIL COUNT 0.2 /CUMM (0.0-0.7); ABSOLUTE GRANULOCYTE CT 14.1 /CUMM (1.4-6.5); ABSOLUTE LYMPH COUNT 1.6 /CUMM (1.2-3.4); ABSOLUTE MONOCYTE COUNT 1.2 /CUMM (0.10-0.60); BASOPHIL % 0.3 % (0.0-2.0); EOSINOPHIL % 1.4 % (0-5); GRANULOCYTE % 82.1 % (42.2-75.2); HEMATOCRIT 32.8 % (37-47); MEAN CORPUSCULAR HGB 28.1 PG (27.0-31.0); MEAN CORPUSCULAR HGB CONC 32.8 G/DL (33.0-37.0); MEAN CORPUSCULAR VOLUME 85.9 FL (81.0-99.0); MEAN PLATELET VOLUME 7.9 FL (7.4-10.4); PLATELET COUNT 595 /CUMM (130-400); RBC DISTRIBUTION WIDTH 14.8 % (11.5-14.5); RED BLOOD CELL CT 3.82 /CUMM (4.20-5.40); WHITE BLOOD CELL COUNT 17.2 /CUMM (4.8-10.8)
--- NOTE | 2017-07-13 08:10 | PN- Housestaff ---
See Addendum Subjective Follow-up For: severe c.diff deconditioning thrombocytosis Subjective: diarrhea is improved today, no further episodes no other complaints at this time except for weakness and fatigue Review of Systems Constitutional: Reports: see HPI. Objective Last 24 Hrs of Vital Signs/I&O Vital Signs Date Time Temp Pulse Resp B/P B/P Pulse O2 O2 Flow FiO2 Mean Ox Delivery Rate 07/13 0658 98.7 90 20 150/54 93 07/12 2225 97.9 80 20 150/58 96 Room Air 07/12 2101 80 150/58 07/12 1508 98.6 78 19 140/70 92 Room Air Intake & Output 07/13 1600 07/13 0800 07/13 0000 Intake Total 60 420 Output Total 200 500 500 Balance -200 -440 -80 Intake, IV 300 Intake, Oral 60 120 Number 0 Bowel Movements Output, Urine 200 500 500 Physical Exam General Appearance: Alert, Oriented X3, Cooperative, No Acute Distress Cardiovascular: Regular Rate, Normal S1, Normal S2, No Murmurs Lungs: Clear to Auscultation, Normal Air Movement Abdomen: Normal Bowel Sounds, Soft, No Tenderness, No Masses Extremities: No Clubbing, No Cyanosis, No Edema, Normal Pulses Current Medications: Current Medications Sig/Srinath Start time Last Medication Dose Route Stop Time Status Admin Acetaminophen 650 MG Q6P PRN 07/11 1400 AC 07/12 PO 1057 Acetaminophen 1,000 MG Q6P PRN 07/11 1400 AC IV Aspirin 81 MG DAILY 07/11 1349 AC 07/13 PO 0900 Bumetanide 2 MG DAILY 07/12 1000 DC 07/13 PO 0859 Cholecalciferol 1,000 IU DAILY 07/11 1349 AC 07/13 PO 0900 Diazepam 5 MG Q8P PRN 07/11 1400 AC PO Ezetimibe 10 MG DAILY 07/12 1000 AC 07/13 PO 0859 Ferrous Sulfate 325 MG DAILY 07/12 1000 AC 07/13 PO 0859 Furosemide 60 MG DAILY 07/12 1000 DC 07/13 PO 0859 Heparin Sodium 5,000 UNIT Q8 07/11 1400 AC 07/13 (Porcine) SC 0624 Insulin Aspart 0 TIDAC 07/11 1700 AC 07/13 SC 1158 Metoprolol Tartrate 75 MG BID 07/11 2200 AC 07/13 PO 0900 Nifedipine 20 MG TID 07/11 1600 AC 07/13 PO 0859 Omeprazole 40 MG DAILY AC 07/11 1350 AC 07/13 PO 0624 Simvastatin 40 MG DAILY@1700 07/11 1835 AC 07/12 PO 1652 Sodium Bicarbonate 650 MG BID 07/11 2200 AC 07/13 PO 0859 Sodium Chloride 1,000 ML .[id number] 07/11 1345 DC 07/12 IV 07/12 1624 0654 Vancomycin HCl 125 MG Q6 07/12 0130 AC 07/13 PO 1159 Last 24 Hrs of Lab/Robert Results Last 24 Hrs of Labs/Mics: Laboratory Tests 07/13/17 0705: Anion Gap 11, Estimated GFR 36 L, BUN/Creatinine Ratio 12.1, CBC w Diff NO MAN DIFF REQ, RBC 3.82 L, MCV 85.9, MCH 28.1, MCHC 32.8 L, RDW 14.8 H, MPV 7.9, Gran % 82.1 H, Lymphocytes % 9.1 L, Monocytes % 7.1, Eosinophils % 1.4, Basophils % 0.3, Absolute Granulocytes 14.1 H, Absolute Lymphocytes 1.6, Absolute Monocytes 1.2 H, Absolute Eosinophils 0.2, Absolute Basophils 0.1 Microbiology 07/12 2116 URINE ROUT: Urine Culture - RES 07/12 1406 STOOL: Clostridium difficile Toxin A & B - COLB Assessment/Plan Assessment: 77 year old female with past medical history of HTN, HLD, carotid stenosis s/p R CEA, DM, CAD S/P stent, HFpEF, chronic back pain, osteoarthritis, spinal stenosis now wheelchair-bound, and hysterectomy who presents from assisted living with weakness and lethargy. Probable C. difficile infection: C. difficile toxin is negative PCR pending White blood cell count is greater than 15,000, indicating severe disease. Afebrile Continue PO Vancomycin 125mg q6h Off intravenous fluids Monitor leukocytosis Deconditioning: Weakness and lethargy Physical therapy and OT consult CKD Cr 1.2 worsened to 1.4 Lasix and bumex discontinued Repeat BEP DM: Accuchecks TIDAC, last 24 hours 160-220 Continue novolog sliding scale insulin -Continue other home medications Diabetic diet DVT prophylaxis with heparin DNR/DNI Problem List: 1. C. difficile diarrhea 2. Physical deconditioning Pain Ratin Pain Location: n/a Pain Goal: Pain 4 or less Pain Plan: prn Tomorrow's Labs & Rationales: cbc, bep
[2017-07-13 13:11] LABS: C.DIFFICILE TOXIN B QL PCR NOT DETECTED (NOT DETECTED)
[2017-07-13 14:16] VITALS: BP 130/62
[2017-07-13 21:58] VITALS: BP 126/64
[2017-07-14 06:50] VITALS: BP 138/74
--- NOTE | 2017-07-14 06:51 | PN- Housestaff ---
See Addendum Subjective Follow-up For: Fatigue, weakness Subjective: No overnight events. She has not had a BM in 2-3 days, no further diarrhea. However, she has continued weakness and fatigue. Also compalining of left hip and knee pain. She had a soft fall 2-3 weeks ago, landed in the seated position. Doesn't think she hurt her hip or knee. She is also reporting some mild cough but no CP, SOB, abd pain, N/V or other issues Review of Systems Constitutional: Reports: see HPI. EENTM: Reports: no symptoms. Cardiovascular: Reports: no symptoms. Respiratory: Reports: see HPI. Gastrointestinal: Reports: see HPI. Genitourinary: Reports: no symptoms. Musculoskeletal: Reports: see HPI. Skin: Reports: no symptoms. Neurological/Psychological: Reports: no symptoms. Hematologic/Endocrine: Reports: no symptoms. Immunologic/Allergic: Reports: no symptoms. Objective Last 24 Hrs of Vital Signs/I&O Vital Signs Date Time Temp Pulse Resp B/P B/P Pulse O2 O2 Flow FiO2 Mean Ox Delivery Rate 07/14 0650 97.9 92 20 138/74 94 07/13 2158 98.9 86 20 126/64 91 Room Air 07/13 2056 86 126/64 07/13 1416 98.4 85 20 130/62 91 Room Air 07/13 0658 98.7 90 20 150/54 93 Intake & Output 07/14 0800 07/14 0000 07/13 1600 Intake Total 720 500 Output Total 350 1100 850 Balance -350 -380 -350 Intake, Oral 720 500 Output, Urine 350 1100 850 Physical Exam General Appearance: Alert, Oriented X3, Cooperative, No Acute Distress Cardiovascular: Regular Rate, Normal S1, Normal S2 Lungs: Clear to Auscultation Abdomen: Normal Bowel Sounds, Soft, No Tenderness Extremities: No Edema, Normal Pulses, No Tenderness/Swelling Current Medications: Current Medications Sig/Srinath Start time Last Medication Dose Route Stop Time Status Admin Acetaminophen 650 MG .STK-MED ONE 07/13 2049 DC PO 07/13 2050 Acetaminophen 650 MG Q6P PRN 07/11 1400 AC 07/14 PO 0602 Acetaminophen 1,000 MG Q6P PRN 07/11 1400 AC IV Aspirin 81 MG DAILY 07/11 1349 AC 07/13 PO 0900 Bumetanide 2 MG DAILY 07/12 1000 DC 07/13 PO 0859 Cholecalciferol 1,000 IU DAILY 07/11 1349 AC 07/13 PO 0900 Diazepam 5 MG Q8P PRN 07/11 1400 AC 07/14 PO 0611 Ezetimibe 10 MG DAILY 07/12 1000 AC 07/13 PO 0859 Ferrous Sulfate 325 MG DAILY 07/12 1000 AC 07/13 PO 0859 Furosemide 60 MG DAILY 07/12 1000 DC 07/13 PO 0859 Heparin Sodium 5,000 UNIT Q8 07/11 1400 AC 07/14 (Porcine) SC 0603 Insulin Aspart 0 TIDAC 07/11 1700 AC 07/13 SC 1647 Metoprolol Tartrate 75 MG BID 07/11 2200 AC 07/13 PO 2054 Nifedipine 20 MG TID 07/11 1600 AC 07/13 PO 205 Nystatin 1 KATHERIN BID PRN 07/13 1515 AC TOP Omeprazole 40 MG DAILY AC 07/11 1350 AC 07/14 PO 0602 Simvastatin 40 MG DAILY@1700 07/11 1835 AC 07/13 PO 1647 Sodium Bicarbonate 650 MG BID 07/11 2200 AC 07/13 PO 205 Sodium Chloride 1,000 ML Q13H 07/13 2130 AC 07/13 IV 2232 Vancomycin HCl 125 MG Q6 07/12 0130 DC 07/13 PO 1159 Last 24 Hrs of Lab/Robert Results Last 24 Hrs of Labs/Mics: Laboratory Tests 07/13/17 0705: Anion Gap 11, Estimated GFR 36 L, BUN/Creatinine Ratio 12.1, CBC w Diff NO MAN DIFF REQ, RBC 3.82 L, MCV 85.9, MCH 28.1, MCHC 32.8 L, RDW 14.8 H, MPV 7.9, Gran % 82.1 H, Lymphocytes % 9.1 L, Monocytes % 7.1, Eosinophils % 1.4, Basophils % 0.3, Absolute Granulocytes 14.1 H, Absolute Lymphocytes 1.6, Absolute Monocytes 1.2 H, Absolute Eosinophils 0.2, Absolute Basophils 0.1 Microbiology 07/13 1856 STOOL: Clostridium difficile Toxin A & B - COLB 07/13 1856 STOOL: Stool Culture - COLB Assessment/Plan Assessment: Mr. Chavez is a 77-year-old female with past medical history of HTN, HLD, carotid stenosis s/p R CEA, DM, CAD S/P stent, HFpEF, chronic back pain, osteoarthritis, spinal stenosis now wheelchair-bound, and hysterectomy who presents from assisted living with weakness and lethargy. Problem List 1. Deconditioning 2. Thrombocytosis 3. Left hip/knee pain 4. Diarrhea #Diarrhea: Even though the C. difficile toxin is negative, history was highly suggestive of C. difficile infection. She was initially started on by mouth vancomycin for severe C. difficile infection but the PCR has come back negative so this was stopped. She hasn't had any further episodes of diarrhea. -CTM #Left hip/knee pain: Patient complaining of left hip and knee pain status post gentle fall. She does not think that she hurt herself during this fall. -CTM #Deconditioning: Patient describes weakness and lethargy since her last admission. -Physical therapy #Thrombocytosis/Leukocytosis: Likely reactive. -Continue to monitor #Chronic medical problems: -cont novolog sliding scale -Continue lasix, bumex, furrous sulfate, ezetimibine, sodium bicarb, simvastatin , nifedipine, diazepam, omeprazole, vit d, aspirin, DVT prophylaxis with heparin Heart healthy diet DNR/DNI Problem List: 1. Weakness Pain Ratin Pain Location: no Pain Goal: Remain pain free Pain Plan: see a/p Tomorrow's Labs & Rationales: no
[2017-07-14 08:33] LABS: ABSOLUTE BASOPHIL COUNT 0 /CUMM (0.0-0.2); ABSOLUTE EOSINOPHIL COUNT 0.2 /CUMM (0.0-0.7); ABSOLUTE GRANULOCYTE CT 10.1 /CUMM (1.4-6.5); ABSOLUTE LYMPH COUNT 1.8 /CUMM (1.2-3.4); ABSOLUTE MONOCYTE COUNT 0.6 /CUMM (0.10-0.60); BASOPHIL % 0.3 % (0.0-2.0); EOSINOPHIL % 1.8 % (0-5); GRANULOCYTE % 78.9 % (42.2-75.2); HEMATOCRIT 31.1 % (37-47); MEAN CORPUSCULAR HGB 28.4 PG (27.0-31.0); MEAN CORPUSCULAR HGB CONC 32.9 G/DL (33.0-37.0); MEAN CORPUSCULAR VOLUME 86.3 FL (81.0-99.0); PLATELET COUNT 562 /CUMM (130-400); RBC DISTRIBUTION WIDTH 15.1 % (11.5-14.5); WHITE BLOOD CELL COUNT 12.8 /CUMM (4.8-10.8)
--- NOTE | 2017-07-14 09:47 | Patient Discharge Instructions ---
Discharge Instructions General Discharge Information You were seen/treated for: Deconditioning Watch for these problems: Fever, chest pain, shortness of breath Special Instructions: Physical medications as directed. Please follow-up with primary care. Diet Continue normal diet: Yes Activity Full Activity/No Limits: Yes Acute Coronary Syndrome Inclusion Criteria At DC or during hospital stay patient has or had the following: ACS DIAGNOSIS No Discharge Core Measures Meds if any: Prescribed or Continued at Discharge Meds if any: NOT Prescribed or Continued at Discharge Congestive Heart Failure Inclusion Criteria At DC or during hospital stay patient has or had the following: CHF DIAGNOSIS No Discharge Core Measures Meds if any: Prescribed or Continued at Discharge Meds if any: NOT Prescribed or Continued at Discharge Cerebrovascular accident Inclusion Criteria At DC or during hospital stay patient has or had the following: CVA/TIA Diagnosis No Discharge Core Measures Meds if any: Prescribed or Continued at Discharge Meds if any: NOT Prescribed or Continued at Discharge Venous thromboembolism Inclusion Criteria VTE Diagnosis No VTE Type NONE VTE Confirmed by (Test) NONE Discharge Core Measures - Per Current guidelines, there needs to be overlap - treatment for the first 5 days of Warfarin therapy. - If discharged on Warfarin prior to 5 days of - overlap therapy, the patient will need to be - assessed for post discharge needs including - *Post discharge parental anticoagulation - *Warfarin and/or parental anticoagulation education - *Follow up date to check INR post discharge At least 5 days overlap therapy as Inpatient No Meds if any: Prescribed or Continued at Discharge Note: Overlap Therapy is Warfarin and Anticoagulant Meds if any: NOT Prescribed or Continued at Discharge
--- NOTE | 2017-07-14 09:56 | Discharge Summary ---
Visit Information Visit Dates Admission Date: 07/11/17 Discharge Date: 07/21/17 Hospital Course Course Attending Physician: Td Choudhary MD Primary Care Physician: Yoel Bassett MD Hospital Course: Mr. Chavez is a 77-year-old female with past medical history of HTN, HLD, carotid stenosis s/p R CEA, DM, CAD S/P stent, HFpEF, chronic back pain, osteoarthritis, spinal stenosis now wheelchair-bound, and hysterectomy who presented from assisted living with weakness and lethargy. On presentation, vital signs routine 87.8, HR 87, RR 20, BP 197/78, saturating 97% on room air. Blood pressure improved at 168/70. Laboratories were significant for white blood cell count 17.4, granulocytes 85.9%, hemoglobin 12.1 , platelets 650, creatinine 1.2 (baseline 1.3), normal LFTs, troponin less than 0.01. Chest x-ray showed improving aeration of right lung base without focal consolidation. C. difficile toxin and flu were negative. She was treated with nystatin and metronidazole in the emergency room. She was admitted to general medicine and treated for the following problems: 1. Deconditioning 2. Thrombocytosis/leukocytosis 3. Left hip/knee pain 4. Diarrhea, likely antibiotic associted #Diarrhea: Patient presented with history of watery diarrhea status post full course of antibiotics and recent hospitalization. Even though the C. difficile toxin is negative, history was highly suggestive of C. difficile infection. She was initially started on by mouth vancomycin for severe C. difficile infection but the PCR subsequently came back negative. She did not have any further episodes of diarrhea. Given her recent antibiotic use, most like antibiotic associated. #Left hip/knee pain: Patient was complaining of left hip and knee pain status post gentle fall. She does not think that she hurt herself during this fall. Exam was benign. She can follow up with primary care for this. #Deconditioning: Patient describes weakness and lethargy since her last admission. Physical therapy evaluated her and recommended home physical therapy. He'll receive services at her extended care facility. #Thrombocytosis/Leukocytosis: Thrombocytosis and leukocytosis were noted at admission. This is likely reactive. A urinalysis on admission did show greater than 75 white blood cell counts but urine culture was contaminated. We are sending a repeat urine culture and we will follow with the patient if she needs treatment. #Chronic medical problems:She was continued on a novolog sliding scale. The following home medications were continued: lasix, bumex, furrous sulfate, ezetimibine, sodium bicarb, simvastatin, nifedipine, diazepam, omeprazole, vit d , aspirin. Allergies: Coded Allergies: atorvastatin (From LIPITOR) (Severe, SWOLLEN TONGUE AND DRY MOUTH 07/11/17) Penicillins (Intermediate, HIVES 06/29/17) amoxicillin (DRY MOUTH 06/29/17) Disposition Summary Disposition Principal Diagnosis: 1. Deconditioning Additional Diagnosis: 2. Thrombocytosis/leukocytosis 3. Left hip/knee pain 4. Diarrhea Discharge Disposition: SNF Discharge Instructions General Discharge Information Code Status: Do Not Resucitate/Intubat Patient's Diet: Diabetic diet Patient's Activity: As tolerated Follow-Up Instructions/Appts: Please take all medications as directed. Please follow-up with primary care. Medications at Discharge Discharge Medications: Stop taking the following medications: Bumetanide (Bumetanide) 2 MG TABLET ORAL DAILY Qty = 28 Continue taking these medications: Aspirin (Children's Aspirin) 81 MG TAB.CHEW 1 Tablet ORAL DAILY Comments: Last Taken: 07/21/17 Time: 09:36 Metoprolol Tartrate (Lopressor) 50 MG TABLET 1.5 Tablet ORAL TWICE DAILY Comments: Last Taken: 07/21/17 Time: 09:36 Cholecalciferol (Vitamin D3) 1,000 UNIT TABLET 2,000 Units ORAL DAILY Comments: Last Taken: 07/21/17 Time:09:37 Omeprazole (Omeprazole) 40 MG CAPSULE.DR 1 Capsule ORAL DAILY Comments: Last Taken: 07/21/17 Time: 06:22 Simvastatin (Zocor*) 40 MG TABLET 1 Tablet ORAL Every night Comments: Last Taken: 07/21/17 Time: 16:16 Nifedipine (Procardia) 10 MG CAPSULE 20 Milligram ORAL THREE TIMES DAILY Qty = 90 Comments: Last Taken: 07/21/17 Time: 16:15 Furosemide (Furosemide) 20 MG TABLET 60 Milligram ORAL DAILY Qty = 90 Comments: NOT GIVEN IN THE HOSPITAL Sitagliptin Phosphate (Januvia) 50 MG TABLET 1 Tablet ORAL DAILY Qty = 30 Comments: NOT GIVEN IN THE HOSPITAL Mirabegron (Myrbetriq) 25 MG TAB.ER.24H 1 Tablet ORAL DAILY Comments: NOT GIVEN IN THE HOSPITAL Ferrous Sulfate (Ferrous Sulfate) 325 MG (65 MG IRON) TABLET 1 Tablet ORAL DAILY Comments: NOT GIVEN IN THE HOSPITAL Diazepam (Diazepam) 5 MG TABLET 1 Tablet ORAL EVERY 8 HOURS NEEDED as needed for SPASMS Comments: NOT GIVEN IN THE HOSPITAL Ezetimibe (Zetia) 10 MG TABLET 1 Tablet ORAL DAILY Qty = 28 Comments: Last Taken: 07/21/17 Time: 09:37 Sodium Bicarbonate (Sodium Bicarbonate) 650 MG TABLET 1 Tablet ORAL TWICE DAILY Comments: Last Taken: 07/21/17 Time: 09:37 Copies To: Danyelle LOWE,Yoel Jackson Attending MD Review Statement Documenting Attending: Td Choudhary MD Other Findings: 77F PMH HTN, HLD, carotid stenosis s/p R CEA, DM, CAD S/P stent, HFpEF, chronic back pain, osteoarthritis, spinal stenosis now wheelchair-bound, recently discharged after being treated for UTI and aspiration pneumonia, discharged on Cephalexin and Flagyl, returns with profuse, watery, foul-smelling diarrhea, dehydration, weakness, and malaise. Afebrile, hemodynamically stable. Initial C.diff negative in ED. Reports weakness, requires assistance to transfer and stand. No further diarrhea. C.diff PCR negative. 1. Infectious diarrhea 2. Deconditioning 3. Generalized weakness 4. Morbid obesity Plan - Stable for discharge to [facility] - Continue home medications - PCP follow up
[2017-07-14 14:05] VITALS: BP 132/70
[2017-07-14 14:06] VITALS: BP 124/72
[2017-07-14 14:08] VITALS: BP 132/70
[2017-07-14 21:03] VITALS: BP 140/68
[2017-07-15 06:49] VITALS: BP 138/70
--- NOTE | 2017-07-15 07:01 | PN- Housestaff ---
See Addendum Subjective Follow-up For: Antibiotic associated diarrhea, weakness Subjective: No overnight events. She feels well this morning. No further episodes of diarrhea. No CP, SOB, Abd pain, N/V. She prefers to go to [facility] for rehab. Review of Systems Constitutional: Reports: no symptoms. EENTM: Reports: no symptoms. Cardiovascular: Reports: no symptoms. Respiratory: Reports: no symptoms. Gastrointestinal: Reports: no symptoms. Genitourinary: Reports: no symptoms. Musculoskeletal: Reports: no symptoms. Skin: Reports: no symptoms. Neurological/Psychological: Reports: no symptoms. Hematologic/Endocrine: Reports: no symptoms. Immunologic/Allergic: Reports: no symptoms. Objective Last 24 Hrs of Vital Signs/I&O Vital Signs Date Time Temp Pulse Resp B/P B/P Pulse O2 O2 Flow FiO2 Mean Ox Delivery Rate 07/15 0649 97.5 80 18 138/70 93 07/14 2138 92 140/68 07/14 2103 98.6 92 18 140/68 92 Room Air 07/14 1926 96 140/62 07/14 1408 98.1 93 18 132/70 95 Room Air 07/14 1406 98.2 78 20 124/72 95 Room Air 07/14 1405 98.1 93 18 132/70 95 Room Air 07/14 1305 Room Air Room Air 07/14 0946 98.5 07/14 0922 74 138/60 Intake & Output 07/15 0800 07/15 0000 07/14 1600 Intake Total Output Total 600 700 Balance -600 -700 Output, Urine 600 700 Physical Exam General Appearance: Alert, Oriented X3, Cooperative, No Acute Distress Cardiovascular: Regular Rate, Normal S1, Normal S2 Lungs: Clear to Auscultation Abdomen: Normal Bowel Sounds, Soft, No Tenderness Neurological: Normal Speech Extremities: No Edema, Normal Pulses Current Medications: Current Medications Sig/Srinath Start time Last Medication Dose Route Stop Time Status Admin Acetaminophen 975 MG Q8P PRN 07/14 0830 AC 07/14 PO 2137 Acetaminophen 650 MG Q6P PRN 07/11 1400 DC 07/14 PO 0602 Acetaminophen 1,000 MG Q6P PRN 07/11 1400 DC IV Aspirin 81 MG DAILY 07/11 1349 AC 07/14 PO 0923 Cholecalciferol 1,000 IU DAILY 07/11 1349 AC 07/14 PO 0923 Diazepam 5 MG Q8P PRN 07/11 1400 AC 07/14 PO 2136 Ezetimibe 10 MG DAILY 07/12 1000 AC 07/14 PO 0923 Ferrous Sulfate 325 MG DAILY 07/12 1000 AC 07/14 PO 0923 Heparin Sodium 5,000 UNIT Q8 07/11 1400 AC 07/15 (Porcine) SC 0616 Insulin Aspart 0 TIDAC 07/11 1700 AC 07/14 SC 1318 Metoprolol Tartrate 75 MG BID 07/11 2200 AC 07/14 PO 2137 Nifedipine 20 MG TID 07/11 1600 AC 07/14 PO 2138 Nystatin 1 KATHERIN BID PRN 07/13 1515 AC TOP Omeprazole 40 MG DAILY AC 07/11 1350 AC 07/15 PO 0616 Simvastatin 40 MG DAILY@1700 07/11 1835 AC 07/14 PO 1927 Sodium Bicarbonate 650 MG BID 07/11 2200 AC 07/14 PO 2136 Sodium Chloride 1,000 ML Q13H 07/13 2130 DC 07/13 IV 2232 Vancomycin HCl 125 MG Q6H 07/15 0130 DC 07/15 PO 0145 Vancomycin HCl 125 MG Q6 07/14 1200 DC 07/14 PO 1927 Last 24 Hrs of Lab/Robert Results Last 24 Hrs of Labs/Mics: Laboratory Tests 07/14/17 0725: Anion Gap 10, Estimated GFR 40 L, BUN/Creatinine Ratio 16.2, Iron 35 L, TIBC 235 L, Ferritin 183.0, CBC w Diff NO MAN DIFF REQ, RBC 3.60 L, MCV 86.3, MCH 28.4, MCHC 32.9 L, RDW 15.1 H, MPV 8.0, Gran % 78.9 H, Lymphocytes % 14.1 L, Monocytes % 4.9, Eosinophils % 1.8, Basophils % 0.3, Absolute Granulocytes 10.1 H, Absolute Lymphocytes 1.8, Absolute Monocytes 0.6, Absolute Eosinophils 0.2, Absolute Basophils 0, Retic Count 2.93 H Microbiology 07/14 1850 URINE ROUT: Urine Culture - RECD Assessment/Plan Assessment: Ms. Chavez is a 77-year-old female with past medical history of HTN, HLD, carotid stenosis s/p R CEA, DM, CAD S/P stent, HFpEF, chronic back pain, osteoarthritis, spinal stenosis now wheelchair-bound, and hysterectomy who presents from assisted living with weakness and lethargy. Problem List 1. Deconditioning 2. Thrombocytosis 3. Left hip/knee pain 4. Diarrhea, likely antibiotic associated, likely antibiotic associated #Diarrhea: Even though the C. difficile toxin is negative, history was highly suggestive of C. difficile infection. She was initially started on by mouth vancomycin for severe C. difficile infection but the PCR has come back negative so this was stopped. She hasn't had any further episodes of diarrhea. -CTM #Left hip/knee pain: Patient complaining of left hip and knee pain status post gentle fall. She does not think that she hurt herself during this fall. -CTM #Deconditioning: Patient describes weakness and lethargy since her last admission. -Physical therapy recommending short-term rehabilitation #Thrombocytosis/Leukocytosis: Likely reactive. -Continue to monitor #Chronic medical problems: -cont novolog sliding scale -Continue lasix, bumex, furrous sulfate, ezetimibine, sodium bicarb, simvastatin , nifedipine, diazepam, omeprazole, vit d, aspirin, DVT prophylaxis with heparin Heart healthy diet DNR/DNI Problem List: 1. Antibiotic-associated diarrhea Pain Ratin Pain Location: no pain Pain Goal: Remain pain free Pain Plan: see a/p Tomorrow's Labs & Rationales: no
--- NOTE | 2017-07-15 09:02 | PN- Student ---
See Addendum Subjective Subjective: 77 year old female with a PMHx of HTN, HLD, carotid stenosis s/p right CEA, DM, CAD s/p stent, HFpEF, chronic back pain and spinal stenosis that left her wheelchair bound who was admitted to our service after presenting to the ED from her assisted living facility 2/2 weakness, fatigue, and diarrhea since her recent discharge from [facility] on 07/03/17. Overnight, she slept well and feels she is progressively getting better. She states food has become enjoyable again and her spirits are up. She is anxiously awaiting physical therapy and would like to be placed at [facility]. She denies chest pain, SOB, fatigue, or abdominal pain. Objective Objective: IMAGING: [07/11/17] CXR-IMPRESSION: Improved aeration of the right lung base without focal consolidation. PHYSICAL EXAMINATION: Vitals: 97.5, 80, 18, 138/70, 93RA General: AOx3. Well appearing, cooperative, and polite. Eyes: Mild opacity with some retinal brushing Cardiovascular: RR, 2/6 BETTY noted over the left second intercostal. No rubs or gallops Pulmonary: CTAB GI: Hyperactive bowel sounds noted. Non TTP Skin: Well perfused and appropriate color for race. Extremities: Extreme tenderness to touch over the entirety of her left leg. All other sensations intact. No edema noted. Pulses 2+ bilaterally. Results Results: Laboratory Tests 07/14/17 0725: Anion Gap 10, Estimated GFR 40 L, BUN/Creatinine Ratio 16.2, Iron 35 L, TIBC 235 L, Ferritin 183.0, CBC w Diff NO MAN DIFF REQ, RBC 3.60 L, MCV 86.3, MCH 28.4, MCHC 32.9 L, RDW 15.1 H, MPV 8.0, Gran % 78.9 H, Lymphocytes % 14.1 L, Monocytes % 4.9, Eosinophils % 1.8, Basophils % 0.3, Absolute Granulocytes 10.1 H, Absolute Lymphocytes 1.8, Absolute Monocytes 0.6, Absolute Eosinophils 0.2, Absolute Basophils 0, Retic Count 2.93 H 07/13/17 0705: Anion Gap 11, Estimated GFR 36 L, BUN/Creatinine Ratio 12.1, CBC w Diff NO MAN DIFF REQ, RBC 3.82 L, MCV 85.9, MCH 28.1, MCHC 32.8 L, RDW 14.8 H, MPV 7.9, Gran % 82.1 H, Lymphocytes % 9.1 L, Monocytes % 7.1, Eosinophils % 1.4, Basophils % 0.3, Absolute Granulocytes 14.1 H, Absolute Lymphocytes 1.6, Absolute Monocytes 1.2 H, Absolute Eosinophils 0.2, Absolute Basophils 0.1 Microbiology 07/14 1849 URINE ROUT: Urine Culture - RECD 07/13 1856 STOOL: Clostridium difficile Toxin A & B - CAN Cancelled: SPECIMEN NOT RECEIVED IN LABORATORY 07/13 1856 STOOL: Stool Culture - CAN Cancelled: SPECIMEN NOT RECEIVED IN LABORATORY 07/12 2116 URINE ROUT: Urine Culture - COMP 07/12 140 STOOL: Clostridium difficile Toxin A & B - CAN Cancelled: SPECIMEN NOT RECEIVED IN LABORATORY Assessment/Plan Assessment: 77 year old female with a PMHx of HTN, HLD, carotid stenosis s/p right CEA, DM, CAD s/p stent, HFpEF, chronic back pain and spinal stenosis that left her wheelchair bound who was admitted to our service after presenting to the ED from her assisted living facility 2/2 weakness, fatigue, and diarrhea since her recent discharge from [facility] on 07/03/17. On physical examination she is well appearing, without fatigue, weakness, or diarrhea, and in good spirits with an otherwise benign examination. Labs revealed leukocytosis with predominent granulocytes, anemia of chronic disease with reticulocytosis, thrombocytosis, elevated Cr and a glucose of 190. Vitals: 97.5, 80, 18, 138/70, 93RA Labs: WBC 12.8 (from 17.2), H/H 10.2/31.1, Plt 562, Granulocytes 78.9, Reticulocyte 2.93, BUN 21, Cr 1.3, Fe 35, TIBC 235, Ferritin 183, Glucose 190s Cultures: Negative for influenza A&B, Negative for c diff, clean-catch urine cx pending Relevant PMHx: T1DM Imaging: Insignificant findings on CXR. Problem list: [id number] v Diabetic nephropathy Flu HTN, Hyperthyroidism, GERD Yeast infection ACD-Fe Left leg tenderness 1) T1DM W/ DKA v Diabetic Nephropathy DKA included a blood glucose level >250 mg/dl, a moderate degree of ketonemia, serum bicarbonate <15 mEq/l, arterial pH <7.3, and an increased anion gap metabolic acidosis. Diabetic Nephropathy more likely considering Cr 1.3, urine protein of 100 and recent vision changes, corroborated with retinal brushing on ophthamoscopy Plan: Consider starting an ACEi and tight control of glucose (HbA1c <7) 2) Influenza B Positive culture. Outside of 48hr window for treatment with Tamiflu Plan: Continue supportive treatment--encourage PO hydration, expectorants, and cough suppressants prn 3) HTN, Hyperthyroidism, GERD Plan: Continue home medications 4) ACD H/H 10.2/31.1, Reticulocyte 2.93, Fe 35, TIBC 235, Ferritin 183 Plan: Continue supplementing Fe. Consider FOBT. 5) Left leg tenderness Could be 2/2 spinal stenosis; however, per last imaging stenosis right-side predominent. Could be diabetic neuropathy; however, typical presentation is distal extremities, not the entire leg. Plan: Consider MRI spine. Consider neurontin prn. Code status: Full Diet: Heart healthy DVT ppx: ALPS with 40mg SQ lovenox qd Sitagliptin Phosphate (Januvia) 50 MG TABLET 1 TAB PO DAILY diabetes ( Reported) Sodium Bicarbonate 650 MG TABLET 1 TAB PO BID SUPPLEMENT (Reported)
[2017-07-15 14:44] VITALS: BP 140/72
[2017-07-15 20:08] VITALS: BP 158/68
[2017-07-15 21:58] VITALS: BP 130/60
[2017-07-16 06:37] VITALS: BP 160/67
--- NOTE | 2017-07-16 06:52 | PN- Housestaff ---
Imani LOWE,Norman 07/16/17 0651: Subjective Follow-up For: Antibiotic assciated diarrhea Subjective: No overnight events. She slept well. No dysuria, abd pain, or other issues. Review of Systems Constitutional: Reports: no symptoms. EENTM: Reports: no symptoms. Cardiovascular: Reports: no symptoms. Respiratory: Reports: no symptoms. Gastrointestinal: Reports: no symptoms. Genitourinary: Reports: no symptoms. Musculoskeletal: Reports: no symptoms. Skin: Reports: no symptoms. Neurological/Psychological: Reports: no symptoms. Hematologic/Endocrine: Reports: no symptoms. Immunologic/Allergic: Reports: no symptoms. Objective Last 24 Hrs of Vital Signs/I&O Vital Signs Date Time Temp Pulse Resp B/P B/P Pulse O2 O2 Flow FiO2 Mean Ox Delivery Rate 07/16 0637 97.6 86 20 160/67 93 07/15 2158 99.2 86 18 130/60 97 07/15 2153 86 130/60 07/15 2008 158/68 07/15 1743 88 180/68 07/15 1444 97.6 94 18 140/72 97 Room Air 07/15 1307 95 138/90 Intake & Output 07/16 0800 07/16 0000 07/15 1600 Intake Total 120 500 Output Total 1000 500 450 Balance -1000 -380 50 Intake, Oral 120 500 Number 0 2 Bowel Movements Output, Urine 1000 500 450 Physical Exam General Appearance: Alert, Oriented X3, Cooperative, No Acute Distress Cardiovascular: Regular Rate, Normal S1, Normal S2 Lungs: Clear to Auscultation Abdomen: Normal Bowel Sounds, Soft, No Tenderness Neurological: Normal Speech Extremities: No Edema, Normal Pulses, No Tenderness/Swelling Current Medications: Current Medications Sig/Srinath Start time Last Medication Dose Route Stop Time Status Admin Acetaminophen 975 MG Q8P PRN 07/14 0830 AC 07/15 PO 2154 Aspirin 81 MG DAILY 07/11 1349 AC 07/15 PO 1300 Cholecalciferol 1,000 IU DAILY 07/11 1349 AC 07/15 PO 1300 Ciprofloxacin 500 MG ONCE ONE 07/15 1400 CAN PO 07/15 1401 Diazepam 5 MG Q8P PRN 07/11 1400 AC 07/14 PO 2136 Ezetimibe 10 MG DAILY 07/12 1000 AC 07/15 PO 1259 Ferrous Sulfate 325 MG DAILY 07/12 1000 AC 07/15 PO 1300 Heparin Sodium 5,000 UNIT Q8 07/11 1400 AC 07/15 (Porcine) SC 2152 Insulin Aspart 0 TIDAC 07/11 1700 AC 07/15 SC 1743 Metoprolol Tartrate 75 MG BID 07/11 2200 AC 07/15 PO 2153 Nifedipine 20 MG TID 07/11 1600 AC 07/15 PO 2153 Nystatin 1 KATHERIN BID PRN 07/13 1515 AC 07/15 TOP 2200 Omeprazole 40 MG DAILY AC 07/11 1350 AC 07/15 PO 0616 Patient Medication 1 ED ONE ONE 07/15 1630 DC 07/15 Teaching ED 07/15 1631 1743 Simvastatin 40 MG DAILY@1700 07/11 1835 AC 07/15 PO 1743 Sodium Bicarbonate 650 MG BID 07/11 2200 AC 07/15 PO 2153 Vancomycin HCl 125 MG Q6H 07/15 0130 DC 07/15 PO 0145 Assessment/Plan Assessment: Ms. Chavez is a 77-year-old female with past medical history of HTN, HLD, carotid stenosis s/p R CEA, DM, CAD S/P stent, HFpEF, chronic back pain, osteoarthritis, spinal stenosis now wheelchair-bound, and hysterectomy who presents from assisted living with weakness and lethargy. Problem List 1. Deconditioning 2. Thrombocytosis 3. Left hip/knee pain 4. Diarrhea, likely antibiotic associated 5. Bacteriuria #Bacteriuria: Patient growing gram-positive cocci in the urine. She has no symptoms. -Await speciation -Continue to monitor #Diarrhea: Even though the C. difficile toxin is negative, history was highly suggestive of C. difficile infection. She was initially started on by mouth vancomycin for severe C. difficile infection but the PCR has come back negative so this was stopped. She hasn't had any further episodes of diarrhea. -CTM #Left hip/knee pain: Patient complaining of left hip and knee pain status post gentle fall. She does not think that she hurt herself during this fall. -CTM #Deconditioning: Patient describes weakness and lethargy since her last admission. -Physical therapy recommending short-term rehabilitation #Thrombocytosis/Leukocytosis: Likely reactive. -Continue to monitor #Chronic medical problems: -cont novolog sliding scale -Continue lasix, bumex, furrous sulfate, ezetimibine, sodium bicarb, simvastatin , nifedipine, diazepam, omeprazole, vit d, aspirin, DVT prophylaxis with heparin Heart healthy diet DNR/DNI Problem List: 1. Antibiotic-associated diarrhea Pain Ratin Pain Location: no Pain Goal: Remain pain free Pain Plan: see a/p Tomorrow's Labs & Rationales: Td Macias MD 07/16/17 1113: Attending MD Review Statement Attending Statement Attending MD Statement: examined this patient, discuss w/resident/PA/[employer]IC, agreed w/resident/PA/GARAGE MECHANIC, reviewed EMR data (avail) Attending Assessment/Plan: 77F PMH HTN, HLD, carotid stenosis s/p R CEA, DM, CAD S/P stent, HFpEF, chronic back pain, osteoarthritis, spinal stenosis now wheelchair-bound, recently discharged after being treated for UTI and aspiration pneumonia, discharged on Cephalexin and Flagyl, returns with profuse, watery, foul-smelling diarrhea, dehydration, weakness, and malaise. Afebrile, hemodynamically stable. Initial C.diff negative in ED. Reports weakness, requires assistance to transfer and stand. No further diarrhea. C.diff PCR negative. 1. Infectious diarrhea 2. Deconditioning 3. Generalized weakness Plan - Stable for discharge to [facility] - Continue home medications - PCP follow up
[2017-07-16 21:43] VITALS: BP 152/58
--- NOTE | 2017-07-17 06:59 | PN- Housestaff ---
See Addendum Subjective Follow-up For: Antibiotic associated diarrhea Subjective: No overnight events. Slept well. Feels like strength is returning slowly, going in the right direction. No further diarrhea. Review of Systems Constitutional: Reports: no symptoms. EENTM: Reports: no symptoms. Cardiovascular: Reports: no symptoms. Respiratory: Reports: no symptoms. Gastrointestinal: Reports: no symptoms. Genitourinary: Reports: no symptoms. Musculoskeletal: Reports: no symptoms. Skin: Reports: no symptoms. Neurological/Psychological: Reports: no symptoms. Hematologic/Endocrine: Reports: no symptoms. Immunologic/Allergic: Reports: no symptoms. Objective Last 24 Hrs of Vital Signs/I&O Vital Signs Date Time Temp Pulse Resp B/P B/P Pulse O2 O2 Flow FiO2 Mean Ox Delivery Rate 07/16 2143 97.9 81 18 152/58 92 Room Air 07/16 2020 81 152/58 07/16 1605 80 138/60 07/16 1018 96 162/90 Intake & Output 07/17 0800 07/17 0000 07/16 1600 Intake Total 900 700 Output Total 700 Balance 200 700 Intake, Oral 900 700 Number 1 2 Bowel Movements Output, Urine 700 Physical Exam General Appearance: Alert, Oriented X3, Cooperative, No Acute Distress Cardiovascular: Regular Rate, Normal S1, Normal S2 Lungs: Clear to Auscultation, Normal Air Movement Abdomen: Normal Bowel Sounds, Soft, No Tenderness Neurological: Normal Speech Extremities: No Edema Current Medications: Current Medications Sig/Srinath Start time Last Medication Dose Route Stop Time Status Admin Acetaminophen 975 MG .STK-MED ONE 07/16 1450 DC PO 07/16 1451 Acetaminophen 975 MG Q8P PRN 07/14 0830 AC 07/16 PO 1453 Aspirin 81 MG DAILY 07/11 1349 AC 07/16 PO 1020 Cholecalciferol 1,000 IU DAILY 07/11 1349 AC 07/16 PO 1019 Diazepam 5 MG Q8P PRN 07/11 1400 AC 07/16 PO 2215 Ezetimibe 10 MG DAILY 07/12 1000 AC 07/16 PO 1019 Ferrous Sulfate 325 MG DAILY 07/12 1000 AC 07/16 PO 1020 Heparin Sodium 5,000 UNIT Q8 07/11 1400 AC 07/17 (Porcine) SC 0634 Insulin Aspart 0 TIDAC 07/11 1700 AC 07/16 SC 1724 Metoprolol Tartrate 75 MG BID 07/11 2200 AC 07/16 PO 2020 Nifedipine 20 MG TID 07/11 1600 AC 07/16 PO 2020 Nystatin 1 KATHERIN BID PRN 07/13 1515 AC 07/16 TOP 2020 Omeprazole 40 MG DAILY AC 07/11 1350 AC 07/17 PO 0634 Patient Medication 1 ED ONE ONE 07/16 1115 DC 07/16 Teaching ED 07/16 1116 1453 Simvastatin 40 MG DAILY@1700 07/11 1835 AC 07/16 PO 1724 Sodium Bicarbonate 650 MG BID 07/11 2200 AC 07/16 PO 2020 Assessment/Plan Assessment: Ms. Chavez is a 77-year-old female with past medical history of HTN, HLD, carotid stenosis s/p R CEA, DM, CAD S/P stent, HFpEF, chronic back pain, osteoarthritis, spinal stenosis now wheelchair-bound, and hysterectomy who presents from assisted living with weakness and lethargy. She is waiting for approval for rehabilitation. Problem List 1. Deconditioning 2. Thrombocytosis 3. Left hip/knee pain 4. Diarrhea, likely antibiotic associated 5. Bacteriuria #Bacteriuria: Patient growing gram-positive cocci in the urine. She has no symptoms. -Await speciation -Continue to monitor #Diarrhea: Even though the C. difficile toxin is negative, history was highly suggestive of C. difficile infection. She was initially started on by mouth vancomycin for severe C. difficile infection but the PCR has come back negative so this was stopped. She hasn't had any further episodes of diarrhea. -CTM #Left hip/knee pain: Patient complaining of left hip and knee pain status post gentle fall. She does not think that she hurt herself during this fall. -CTM #Deconditioning: Patient describes weakness and lethargy since her last admission. -Physical therapy recommending short-term rehabilitation #Thrombocytosis/Leukocytosis: Likely reactive. -Continue to monitor #Chronic medical problems: -cont novolog sliding scale -Continue lasix, bumex, furrous sulfate, ezetimibine, sodium bicarb, simvastatin , nifedipine, diazepam, omeprazole, vit d, aspirin, DVT prophylaxis with heparin Heart healthy diet DNR/DNI Problem List: 1. Antibiotic-associated diarrhea Pain Ratin Pain Location: no Pain Goal: Remain pain free Pain Plan: no Tomorrow's Labs & Rationales: no
[2017-07-17 07:08] VITALS: BP 148/62
[2017-07-17 13:54] VITALS: BP 138/78
[2017-07-17 22:16] VITALS: BP 138/80
--- NOTE | 2017-07-18 07:18 | PN- Housestaff ---
See Addendum Subjective Follow-up For: Antibiotic associated diarrhea Subjective: No overnight events. Patient feels like she is moving in the right direction. Review of Systems Constitutional: Reports: no symptoms. EENTM: Reports: no symptoms. Cardiovascular: Reports: no symptoms. Respiratory: Reports: no symptoms. Gastrointestinal: Reports: no symptoms. Genitourinary: Reports: no symptoms. Musculoskeletal: Reports: no symptoms. Skin: Reports: no symptoms. Neurological/Psychological: Reports: no symptoms. Hematologic/Endocrine: Reports: no symptoms. Immunologic/Allergic: Reports: no symptoms. Objective Last 24 Hrs of Vital Signs/I&O Vital Signs Date Time Temp Pulse Resp B/P B/P Pulse O2 O2 Flow FiO2 Mean Ox Delivery Rate 07/17 2215 98.2 92 19 138/80 93 Room Air 07/17 211 92 138/80 07/17 1643 87 138/78 07/17 1354 97.6 87 20 138/78 97 Room Air 07/17 0905 87 148/62 Intake & Output 07/18 0800 07/18 0000 07/17 1600 Intake Total 720 400 Output Total 450 Balance 720 -50 Intake, IV 0 Intake, Oral 720 400 Number 1 1 Bowel Movements Output, Urine 450 Physical Exam General Appearance: Alert, Oriented X3, Cooperative, No Acute Distress Cardiovascular: Regular Rate, Normal S1, Normal S2 Lungs: Clear to Auscultation Abdomen: No Tenderness Current Medications: Current Medications Sig/Srinath Start time Last Medication Dose Route Stop Time Status Admin Acetaminophen 975 MG .STK-MED ONE 07/17 2117 DC PO 07/17 2118 Acetaminophen 975 MG Q8P PRN 07/14 0830 AC 07/18 PO 0638 Aspirin 81 MG DAILY 07/11 1349 AC 07/17 PO 0905 Cholecalciferol 1,000 IU DAILY 07/11 1349 AC 07/17 PO 0904 Diazepam 5 MG Q8P PRN 07/11 1400 AC 07/16 PO 2215 Diclofenac Sodium 1 KATHERIN 4 TIMES/DAY 07/17 2305 CAN TOP Diclofenac Sodium 1 KATHERIN 4 TIMES/DAY 07/17 2200 AC 07/18 TOP 0008 Ezetimibe 10 MG DAILY 07/12 1000 AC 07/17 PO 0904 Ferrous Sulfate 325 MG DAILY 07/12 1000 AC 07/17 PO 0904 Heparin Sodium 5,000 UNIT Q8 07/11 1400 AC 07/18 (Porcine) SC 0611 Insulin Aspart 0 TIDAC 07/11 1700 AC 07/17 SC 1643 Metoprolol Tartrate 75 MG BID 07/11 2200 AC 07/17 PO 2113 Nifedipine 20 MG TID 07/11 1600 AC 07/17 PO 2114 Nystatin 1 KATHERIN BID PRN 07/13 1515 AC 07/18 TOP 0611 Omeprazole 40 MG DAILY AC 07/11 1350 AC 07/18 PO 0611 Patient Medication 1 ED ONE ONE 07/17 1130 DC 07/17 Teaching ED 07/17 1131 1643 Simvastatin 40 MG DAILY@1700 07/11 1835 AC 07/17 PO 1643 Sodium Bicarbonate 650 MG BID 07/11 2200 AC 07/17 PO 2112 Assessment/Plan Assessment: Ms. Chavez is a 77-year-old female with past medical history of HTN, HLD, carotid stenosis s/p R CEA, DM, CAD S/P stent, HFpEF, chronic back pain, osteoarthritis, spinal stenosis now wheelchair-bound, and hysterectomy who presents from assisted living with weakness and lethargy. She is waiting for approval for rehabilitation. Problem List 1. Deconditioning 2. Thrombocytosis 3. Left hip/knee pain 4. Diarrhea, likely antibiotic associated 5. Bacteriuria #Bacteriuria: Patient growing vancomycin sensitive enterococcus in the urine. She has no symptoms. No fevers. No treatment indicated at this time. -Continue to monitor #Diarrhea: Resolved. Even though the C. difficile toxin is negative, history was highly suggestive of C. difficile infection. She was initially started on by mouth vancomycin for severe C. difficile infection but the PCR has come back negative so this was stopped. She hasn't had any further episodes of diarrhea. -CTM #Left hip/knee pain: Patient complaining of left hip and knee pain status post gentle fall. She does not think that she hurt herself during this fall. -CTM #Deconditioning: Patient describes weakness and lethargy since her last admission. -Physical therapy recommending short-term rehabilitation #Thrombocytosis/Leukocytosis: Likely reactive. -Continue to monitor #Chronic medical problems: -cont novolog sliding scale -Continue lasix, bumex, furrous sulfate, ezetimibine, sodium bicarb, simvastatin , nifedipine, diazepam, omeprazole, vit d, aspirin, DVT prophylaxis with heparin Heart healthy diet DNR/DNI Problem List: 1. Antibiotic-associated diarrhea Pain Ratin Pain Location: no Pain Goal: Remain pain free Pain Plan: nmo Tomorrow's Labs & Rationales: no
[2017-07-18 07:28] VITALS: BP 148/80
[2017-07-18 15:14] VITALS: BP 150/72
[2017-07-18 22:53] VITALS: BP 148/62
[2017-07-19 07:29] VITALS: BP 158/70
--- NOTE | 2017-07-19 10:04 | PN- Housestaff ---
See Addendum Subjective Follow-up For: diarrhea, resolved. Insurance issues Subjective: No overnight events. Feels about the same, improving. Complaining about not having the gomez. Review of Systems Constitutional: Reports: no symptoms. EENTM: Reports: no symptoms. Cardiovascular: Reports: no symptoms. Respiratory: Reports: no symptoms. Gastrointestinal: Reports: no symptoms. Genitourinary: Reports: no symptoms. Musculoskeletal: Reports: no symptoms. Skin: Reports: see HPI. Neurological/Psychological: Reports: no symptoms. Hematologic/Endocrine: Reports: no symptoms. Immunologic/Allergic: Reports: no symptoms. Objective Last 24 Hrs of Vital Signs/I&O Vital Signs Date Time Temp Pulse Resp B/P B/P Pulse O2 O2 Flow FiO2 Mean Ox Delivery Rate 07/19 0843 93 158/70 07/19 0729 98.0 93 18 158/70 96 Room Air 07/18 2253 98.5 80 18 148/62 93 Room Air 07/18 2117 80 148/62 07/18 1650 84 148/76 07/18 1514 98.5 81 20 150/72 93 Room Air Intake & Output 07/19 1600 07/19 0800 07/19 0000 Intake Total 240 1080 Output Total Balance 240 1080 Intake, Oral 240 1080 Number 1 Bowel Movements Physical Exam General Appearance: Alert, Oriented X3, Cooperative, No Acute Distress Cardiovascular: Regular Rate, Normal S1, Normal S2 Lungs: Clear to Auscultation Abdomen: Normal Bowel Sounds, Soft, No Tenderness Extremities: No Edema, Normal Pulses, No Tenderness/Swelling Current Medications: Current Medications Sig/Srinath Start time Last Medication Dose Route Stop Time Status Admin Acetaminophen 975 MG .STK-MED ONE 07/18 2110 DC PO 07/18 2111 Acetaminophen 975 MG .STK-MED ONE 07/18 2110 DC PO 07/18 2111 Acetaminophen 975 MG Q8P PRN 07/14 0830 AC 07/19 PO 0603 Aspirin 81 MG DAILY 07/11 1349 AC 07/19 PO 0843 Cholecalciferol 1,000 IU DAILY 07/11 1349 AC 07/19 PO 0842 Diazepam 5 MG Q8P PRN 07/11 1400 DC 07/16 PO 2215 Diclofenac Sodium 1 KATHERIN 4 TIMES/DAY 07/17 2200 AC 07/19 TOP 0843 Ezetimibe 10 MG DAILY 07/12 1000 AC 07/19 PO 0842 Ferrous Sulfate 325 MG DAILY 07/12 1000 AC 07/19 PO 0842 Heparin Sodium 5,000 UNIT Q8 07/11 1400 AC 07/19 (Porcine) SC 0602 Insulin Aspart 0 TIDAC 07/11 1700 AC 07/19 SC 0842 Metoprolol Tartrate 75 MG BID 07/11 2200 AC 07/19 PO 0842 Nifedipine 20 MG TID 07/11 1600 AC 07/19 PO 0843 Nystatin 1 KATHERIN BID PRN 07/13 1515 AC 07/18 TOP 0611 Omeprazole 40 MG DAILY AC 07/11 1350 AC 07/19 PO 0602 Simvastatin 40 MG DAILY@1700 07/11 1835 AC 07/18 PO 1650 Sodium Bicarbonate 650 MG BID 07/11 2200 AC 07/19 PO 0842 Assessment/Plan Assessment: Ms. Chavez is a 77-year-old female with past medical history of HTN, HLD, carotid stenosis s/p R CEA, DM, CAD S/P stent, HFpEF, chronic back pain, osteoarthritis, spinal stenosis now wheelchair-bound, and hysterectomy who presents from assisted living with weakness and lethargy. She is waiting for approval for rehabilitation. Problem List 1. Deconditioning 2. Thrombocytosis 3. Left hip/knee pain 4. Diarrhea, likely antibiotic associated 5. Bacteriuria #Bacteriuria: Patient growing vancomycin sensitive enterococcus in the urine. She has no symptoms. No fevers. No treatment indicated at this time. -Continue to monitor #Diarrhea: Resolved. Even though the C. difficile toxin is negative, history was highly suggestive of C. difficile infection. She was initially started on by mouth vancomycin for severe C. difficile infection but the PCR has come back negative so this was stopped. She hasn't had any further episodes of diarrhea. -CTM #Left hip/knee pain: Patient complaining of left hip and knee pain status post gentle fall. She does not think that she hurt herself during this fall. -CTM #Deconditioning: Patient describes weakness and lethargy since her last admission. -Physical therapy recommending short-term rehabilitation #Thrombocytosis/Leukocytosis: Likely reactive. -Continue to monitor #Chronic medical problems: -cont novolog sliding scale -Continue lasix, bumex, furrous sulfate, ezetimibine, sodium bicarb, simvastatin , nifedipine, diazepam, omeprazole, vit d, aspirin, DVT prophylaxis with heparin Heart healthy diet DNR/DNI Problem List: 1. Antibiotic-associated diarrhea Pain Ratin Pain Location: no Pain Goal: Remain pain free Pain Plan: no Tomorrow's Labs & Rationales: no
[2017-07-19 14:28] VITALS: BP 152/70
[2017-07-19 23:28] VITALS: BP 150/64
[2017-07-20 07:01] VITALS: BP 161/58
--- NOTE | 2017-07-20 08:07 | PN- Housestaff ---
See Addendum Subjective Follow-up For: Waitign for rehab Subjective: No overnight events. Nothing new, waiting for rehab bed. Review of Systems Constitutional: Reports: no symptoms. EENTM: Reports: no symptoms. Cardiovascular: Reports: no symptoms. Respiratory: Reports: no symptoms. Gastrointestinal: Reports: no symptoms. Genitourinary: Reports: no symptoms. Musculoskeletal: Reports: no symptoms. Skin: Reports: no symptoms. Neurological/Psychological: Reports: no symptoms. Hematologic/Endocrine: Reports: no symptoms. Immunologic/Allergic: Reports: no symptoms. Objective Last 24 Hrs of Vital Signs/I&O Vital Signs Date Time Temp Pulse Resp B/P B/P Pulse O2 O2 Flow FiO2 Mean Ox Delivery Rate 07/20 0701 98.2 76 18 161/58 94 Room Air 07/19 2328 98.2 90 20 150/64 94 Room Air 07/19 1428 98.0 84 18 152/70 95 Room Air 07/19 0843 93 158/70 Intake & Output 07/20 1600 07/20 0800 07/20 0000 Intake Total Output Total Balance Number 1 Bowel Movements Physical Exam General Appearance: Alert, Oriented X3, Cooperative, No Acute Distress Cardiovascular: Regular Rate Lungs: Clear to Auscultation Abdomen: No Tenderness Current Medications: Current Medications Sig/Srinath Start time Last Medication Dose Route Stop Time Status Admin Acetaminophen 975 MG .STK-MED ONE 07/19 1953 DC PO 07/19 1954 Acetaminophen 975 MG Q8P PRN 07/14 0830 AC 07/20 PO 0401 Aspirin 81 MG DAILY 07/11 1349 AC 07/19 PO 0843 Cholecalciferol 1,000 IU DAILY 07/11 1349 AC 07/19 PO 0842 Diclofenac Sodium 1 KATHERIN 4 TIMES/DAY 07/17 2200 AC 07/19 TOP 2218 Ezetimibe 10 MG DAILY 07/12 1000 AC 07/19 PO 0842 Ferrous Sulfate 325 MG DAILY 07/12 1000 AC 07/19 PO 0842 Heparin Sodium 5,000 UNIT Q8 07/11 1400 AC 07/20 (Porcine) SC 0402 Insulin Aspart 0 TIDAC 07/11 1700 AC 07/19 SC 1749 Metoprolol Tartrate 75 MG BID 07/11 2200 AC 07/19 PO 2220 Nifedipine 20 MG TID 07/11 1600 AC 07/19 PO 2221 Nystatin 1 KATHERIN BID PRN 07/13 1515 07/18 TOP 0611 Omeprazole 40 MG DAILY AC 07/11 1350 AC 07/20 PO 0402 Simvastatin 40 MG DAILY@1700 07/11 1835 AC 07/19 PO 1749 Sodium Bicarbonate 650 MG BID 07/11 2200 07/19 PO 2218 Assessment/Plan Assessment: Ms. Chavez is a 77-year-old female with past medical history of HTN, HLD, carotid stenosis s/p R CEA, DM, CAD S/P stent, HFpEF, chronic back pain, osteoarthritis, spinal stenosis now wheelchair-bound, and hysterectomy who presents from assisted living with weakness and lethargy. She is waiting for approval for rehabilitation. Problem List 1. Deconditioning 2. Thrombocytosis 3. Left hip/knee pain 4. Diarrhea, likely antibiotic associated 5. Bacteriuria #Bacteriuria: Patient growing vancomycin sensitive enterococcus in the urine. She has no symptoms. No fevers. No treatment indicated at this time. -Continue to monitor #Diarrhea: Resolved. Even though the C. difficile toxin is negative, history was highly suggestive of C. difficile infection. She was initially started on by mouth vancomycin for severe C. difficile infection but the PCR has come back negative so this was stopped. She hasn't had any further episodes of diarrhea. -CTM #Left hip/knee pain: Patient complaining of left hip and knee pain status post gentle fall. She does not think that she hurt herself during this fall. -CTM #Deconditioning: Patient describes weakness and lethargy since her last admission. -Physical therapy recommending short-term rehabilitation #Thrombocytosis/Leukocytosis: Likely reactive. -Continue to monitor #Chronic medical problems: -cont novolog sliding scale -Continue lasix, bumex, furrous sulfate, ezetimibine, sodium bicarb, simvastatin , nifedipine, diazepam, omeprazole, vit d, aspirin, DVT prophylaxis with heparin Heart healthy diet DNR/DNI Problem List: 1. Antibiotic-associated diarrhea 2. Physical deconditioning Pain Ratin Pain Location: no Pain Goal: Remain pain free Pain Plan: see a/p Tomorrow's Labs & Rationales: no
[2017-07-20 15:30] VITALS: BP 140/66
[2017-07-20 22:00] VITALS: BP 122/59
--- NOTE | 2017-07-21 06:57 | PN- Housestaff ---
See Addendum Subjective Follow-up For: Waiting for rehab Subjective: No overnight events. She still does not feel strong enough to go back to her assisted living facility. She likes it here, and says she is getting the help she needs. Review of Systems Constitutional: Reports: no symptoms. EENTM: Reports: no symptoms. Cardiovascular: Reports: no symptoms. Respiratory: Reports: no symptoms. Gastrointestinal: Reports: no symptoms. Genitourinary: Reports: no symptoms. Musculoskeletal: Reports: no symptoms. Skin: Reports: no symptoms. Neurological/Psychological: Reports: no symptoms. Hematologic/Endocrine: Reports: no symptoms. Immunologic/Allergic: Reports: no symptoms. Objective Last 24 Hrs of Vital Signs/I&O Vital Signs Date Time Temp Pulse Resp B/P B/P Pulse O2 O2 Flow FiO2 Mean Ox Delivery Rate 07/20 2199 98.0 86 18 122/59 93 07/20 2128 86 122/49 07/20 2126 86 122/49 07/20 1530 97.5 80 20 140/66 94 Room Air 07/20 0825 76 161/58 07/20 0701 98.2 76 18 161/58 94 Room Air Intake & Output 07/21 0800 07/21 0000 07/20 1600 Intake Total 1260 Output Total Balance 1260 Intake, IV 0 Intake, Oral 1260 Number 1 0 Bowel Movements Physical Exam General Appearance: Alert, Oriented X3, Cooperative, No Acute Distress Cardiovascular: Regular Rate, Normal S1, Normal S2 Lungs: Clear to Auscultation Abdomen: Normal Bowel Sounds, Soft, No Tenderness Current Medications: Current Medications Sig/Srinath Start time Last Medication Dose Route Stop Time Status Admin Acetaminophen 975 MG .STK-MED ONE 07/20 2114 DC PO 07/20 2115 Acetaminophen 975 MG Q8P PRN 07/14 0830 AC 07/21 PO 0622 Aspirin 81 MG DAILY 07/11 1349 AC 07/20 PO 0824 Cholecalciferol 1,000 IU DAILY 07/11 1349 AC 07/20 PO 0824 Diclofenac Sodium 1 KATHERIN 4 TIMES/DAY 07/17 220 AC 07/20 TOP 212 Ezetimibe 10 MG DAILY 07/12 1000 AC 07/20 PO 0824 Ferrous Sulfate 325 MG DAILY 07/12 1000 AC 07/20 PO 0825 Heparin Sodium 5,000 UNIT Q8 07/11 1400 AC 07/21 (Porcine) SC 0622 Insulin Aspart 0 TIDAC 07/11 1700 AC 07/20 SC 1718 Metoprolol Tartrate 100 MG BID 07/20 2200 AC 07/20 PO 2129 Metoprolol Tartrate 75 MG BID 07/11 2200 DC 07/20 PO 0825 Nifedipine 20 MG TID 07/11 1600 AC 07/20 PO 2126 Nystatin 1 KATHERIN BID PRN 07/13 1515 DC 07/18 TOP 0611 Omeprazole 40 MG DAILY AC 07/11 1350 AC 07/21 PO 0622 Simvastatin 40 MG DAILY@1700 07/11 1835 AC 07/20 PO 1718 Sodium Bicarbonate 650 MG BID 07/11 2200 AC 07/20 PO 2128 Assessment/Plan Assessment: Ms. Chavez is a 77-year-old female with past medical history of HTN, HLD, carotid stenosis s/p R CEA, DM, CAD S/P stent, HFpEF, chronic back pain, osteoarthritis, spinal stenosis now wheelchair-bound, and hysterectomy who presents from assisted living with weakness and lethargy. She is waiting for approval for rehabilitation. Problem List 1. Deconditioning 2. Thrombocytosis 3. Left hip/knee pain 4. Diarrhea, likely antibiotic associated 5. Bacteriuria #Bacteriuria: Patient growing vancomycin sensitive enterococcus in the urine. She has no symptoms. No fevers. No treatment indicated at this time. -Continue to monitor #Diarrhea: Resolved. Even though the C. difficile toxin is negative, history was highly suggestive of C. difficile infection. She was initially started on by mouth vancomycin for severe C. difficile infection but the PCR has come back negative so this was stopped. She hasn't had any further episodes of diarrhea. -CTM #Left hip/knee pain: Patient complaining of left hip and knee pain status post gentle fall. She does not think that she hurt herself during this fall. -CTM #Deconditioning: Patient describes weakness and lethargy since her last admission. -Physical therapy recommending short-term rehabilitation, still does not think she can go back to assisted living. #Thrombocytosis/Leukocytosis: Likely reactive. -Continue to monitor #Chronic medical problems: -cont novolog sliding scale -Continue lasix, bumex, furrous sulfate, ezetimibine, sodium bicarb, simvastatin , nifedipine, diazepam, omeprazole, vit d, aspirin, DVT prophylaxis with heparin Heart healthy diet DNR/DNI Problem List: 1. Physical deconditioning Pain Ratin Pain Location: no Pain Goal: Remain pain free Pain Plan: no Tomorrow's Labs & Rationales: no
[2017-07-21 07:08] VITALS: BP 118/65
[2017-07-21 09:01] LABS: ABSOLUTE BASOPHIL COUNT 0.1 /CUMM (0.0-0.2); ABSOLUTE EOSINOPHIL COUNT 0.4 /CUMM (0.0-0.7); ABSOLUTE GRANULOCYTE CT 8.3 /CUMM (1.4-6.5); ABSOLUTE LYMPH COUNT 1.9 /CUMM (1.2-3.4); ABSOLUTE MONOCYTE COUNT 0.8 /CUMM (0.10-0.60); BASOPHIL % 0.8 % (0.0-2.0); EOSINOPHIL % 3.3 % (0-5); GRANULOCYTE % 72.2 % (42.2-75.2); HEMATOCRIT 35.7 % (37-47); MEAN CORPUSCULAR HGB 28.1 PG (27.0-31.0); MEAN CORPUSCULAR HGB CONC 32.2 G/DL (33.0-37.0); MEAN CORPUSCULAR VOLUME 87.4 FL (81.0-99.0); MEAN PLATELET VOLUME 7.8 FL (7.4-10.4); PLATELET COUNT 554 /CUMM (130-400); RBC DISTRIBUTION WIDTH 15.8 % (11.5-14.5); RED BLOOD CELL CT 4.09 /CUMM (4.20-5.40); WHITE BLOOD CELL COUNT 11.5 /CUMM (4.8-10.8)
[2017-07-21 15:01] VITALS: BP 140/56
[2017-07-21 17:56] VITALS: BP 160/78
== END 2017-07-21 19:10 | DRG 392 ==
LOC: DELPENDDIS → ERH 10:12 → 2NB 13:20 → ERHI 13:20 → CANRESERV 14:18 → ENRESERV 14:18 → ERHI 16:02 → ENRESERV 16:28 → ENTRNSPT 17:46 → EDTRNSPT 17:58 → EDTRNSPTSTS 17:58 → 2NB 18:08 → CMPTRNSPT 18:29 → ENPENDDIS 07-14 09:45 → 2NB 07-21 19:10
PROVIDERS: Emergency Medicine; Hospitalist; Radiology Vascular & Interventional Radiology
DX: A09 Infectious gastroenteritis and colitis, unspecified (principal); E11.51 Type 2 diabetes mellitus with diabetic peripheral angiopathy without gangrene; I50.32 Chronic diastolic (congestive) heart failure; I11.0 Hypertensive heart disease with heart failure; Z68.41 Body mass index [BMI] 40.0-44.9, adult; E66.01 Morbid (severe) obesity due to excess calories; E86.0 Dehydration; I25.10 Atherosclerotic heart disease of native coronary artery without angina pectoris; G89.29 Other chronic pain; M54.9 Dorsalgia, unspecified; Z99.3 Dependence on wheelchair; Z66 Do not resuscitate; F32.9 Major depressive disorder, single episode, unspecified; M48.00 Spinal stenosis, site unspecified; M25.552 Pain in left hip; M25.562 Pain in left knee; Z79.84 Long term (current) use of oral hypoglycemic drugs; Z87.891 Personal history of nicotine dependence; Z95.5 Presence of coronary angioplasty implant and graft
CPT/HCPCS: 2NBP; 87493; 36415; 36592; 71045; 81001; 82436; 87045; 87086; 87088; 87147; 87804; 87804-59; 93005; 93010; 96365; 97110-GO; 97162-GP; 97166-GO; 97530-GO; J1644; J3490

== ENCOUNTER 2017-08-07 21:20 | Observation (INO) | payer OTHER ==
[~2017-08-07] VITALS: Ht 152.4 cm; Wt 95.7 kg
[~2017-08-07 21:20] MED LIST changes: +BUMETANIDE2 M1 PO; +DIAZEPAM5 M1 PO; +FERROUS SULFAT325 M3 PO; +MYRBETRIQ25 M1 PO; +SODIUM BICARBO650 M1 PO; +ZETIA10 M1 PO
--- NOTE | 2017-08-07 21:52 | ED AMS/SEIZURE/WEAK/DIZZY ---
See Addendum History of Present Illness General Chief Complaint: General Adult Stated Complaint: "HYPERGLYCEMIA, TROUBLE AMBULATING" Source: patient, old records, EMS Exam Limitations: no limitations Vital Signs & Intake/Output Vital Signs & Intake/Output Vital Signs Date Time Temp Pulse Resp B/P B/P Pulse O2 O2 Flow FiO2 Mean Ox Delivery Rate 08/08 1829 98.9 88 18 161/74 95 Nasal Cannula 08/08 1656 100.2 101 18 174/77 95 / 1412 85 20 166/61 96 Room Air 08/08 1059 98.2 98 20 158/71 96 Room Air 08/08 0850 98.0 100 20 177/77 97 Room Air 08/08 0621 98.2 99 18 129/61 98 Room Air 08/08 0052 98.3 100 18 119/62 98 Room Air 08/07 2217 Room Air 08/07 2145 Room Air 08/07 2136 99.3 88 16 191/82 94 Room Air ED Intake and Output 08/08 0000 08/07 1200 Intake Total Output Total 150 Balance -150 Output, Urine 150 Patient 207 lb Weight Weight Reported by Patient Measurement Method Allergies Coded Allergies: atorvastatin (From LIPITOR) (Severe, SWOLLEN TONGUE AND DRY MOUTH 07/11/17) Penicillins (Intermediate, HIVES 06/29/17) amoxicillin (DRY MOUTH 06/29/17) Reconcile Medications Aspirin (Children's Aspirin) 81 MG TAB.CHEW 1 TAB PO DAILY HEART HEALTH ( Reported) Cholecalciferol (Vitamin D3) 1,000 UNIT TABLET 2,000 UNITS PO DAILY BONE STRENGTH (Reported) Diazepam 5 MG TABLET 1 TAB PO Q8P PRN SPASMS (Reported) Duloxetine HCl 30 MG CAPSULE.DR 1 CAP PO DAILY UNKNOWN (Reported) Ezetimibe (Zetia) 10 MG TABLET 1 TAB PO DAILY CHOLESTEROL (Reported) Ferrous Sulfate 325 MG (65 MG IRON) TABLET 1 TAB PO TID SUPPLEMENT (Reported) Furosemide 20 MG TABLET 60 MG PO DAILY fluid Lidocaine (Lidoderm) 5 % ADH..PATCH 1 PAT TOP DAILY PAIN (Reported) may wear up to 12 hours Metoprolol Tartrate (Lopressor) 50 MG TABLET 1.5 TAB PO BID BP (Reported) Mirabegron (Myrbetriq) 25 MG TAB.ER.24H 1 TAB PO DAILY BLADDER HEALTH ( Reported) Nifedipine (Procardia) 10 MG CAPSULE 20 MG PO TID BP Omeprazole 40 MG CAPSULE.DR 1 CAP PO DAILY GI (Reported) Simvastatin (SIMVASTATIN*) 80 MG TABLET 1 TAB PO DAILY CHOLESTEROL (Reported) Sitagliptin Phosphate (Januvia) 50 MG TABLET 1 TAB PO DAILY diabetes ( Reported) Sodium Bicarbonate 650 MG TABLET 1 TAB PO BID SUPPLEMENT (Reported) Tramadol HCl 50 MG TABLET 1 TAB PO Q4H PRN PAIN (Reported) Triage Note: BIBA FROM ASSISTED LIVING AT [facility] FOR INABILITY TO AMBULATE, GENERALIZED WEAKNESS AND MALAISE. PT WAS JUST DISCHARGED FROM [facility] ([facility] TO HER ASSISTED [facility]IVING HOME AT [facility] TODAY. PT STATES SHE WAS AT REHAB DUE TO WEAKNESS AND THEY DISCHARGED HER HOME DESPITE HER BEING UNABLE TO AMBULATE. FINGERSTICK 303 UPON ARRIVAL. PT AWAKE, ALERT, AND ORIENTED. IN NO OVERT DISTRESS Triage Nurses Notes Reviewed? yes Onset: Gradual Duration: constant Timing: recent history Severity: severe Severity Numbers: 10 HPI: Patient is a 77-year-old female with a past medical history of hypertension, hyperlipidemia carotid stenosis status post right CEA, diabetes, sacral pressure ulcer, CAD status post stent placement, heart failure with preserved ejection fracture, chronic back pain and osteoarthritis, spinal stenosis who is no wheelchair-bound who was recently admitted and discharged from [facility] on July 21 placed in short-term rehabilitation [facility], she stated that they discharged her unexpectedly today and did not evaluate her weightbearing function were she was transferred to [facility] assisted care facility where she called EMS due to the [facility] resident's cannot care for patient due to her generalized weakness and unable to get out of bed Patient denies any fever chills chest pain shortness of breath arm pain jaw pain leg swelling hemoptysis nausea vomiting headache blurred vision and this otherwise without complaints she does admit to me that "I need nursing care" EMS does state that blood sugar on arrival was 300 IV fluids were administered (Adair Thurman) Past History Travel History Traveled to [place] past 21 day No Medical History Any Pertinent Medical History? see below for history Neurological: NONE, restless leg syndrome EENT: NONE Cardiovascular: NONE (peripheral vascular disease), CAD (s/p angioplasty), CHF, hypertension, hyperlipidemia, BLOCKED L CAROTID ARTERY Respiratory: NONE Gastrointestinal: NONE Hepatic: NONE Renal: UTI Musculoskeletal: chronic back pain, osteoarthritis, spinal stenosis Psychiatric: NONE, depression Endocrine: DM Blood Disorders: NONE Cancer(s): NONE MID LEVEL CLINICIAN/Reproductive: NONE (hysterectomy), UTI Other Medical Hx: bilateral carotid artery disease History of MRSA: No History of VRE: No History of CDIFF: No Influenza Vaccine: 04/25/17 Surgical History Surgical History: non-contributory Psychosocial History Who do you live with Patient/Self Services at Home Home Health Aide What is your primary language Japanese Tobacco Use: Quit >30 days ago ETOH Use: denies use Illicit Drug Use: denies illicit drug use Family History Family History, If Any: FATHER (myocardial infarction at age 52 and later from a CVA). FH: CAD (coronary artery disease), Onset: 50-60. BROTHER (COPD). FH: cancer FH: COPD (chronic obstructive pulmonary disease) FATHER BROTHER (myocardial infarction). MOTHER FH: cancer SON SON (Mi in 40's). MOTHER ( from cancer of the liver and kidney). Hx Contributory? No (Adair Thurman) Review of Systems Review of Systems Constitutional: Reports: weakness. Denies: chills, fever. EENTM: Reports: no symptoms. Respiratory: Reports: no symptoms. Cardiovascular: Reports: no symptoms. GI: Reports: no symptoms. Genitourinary: Reports: no symptoms. Musculoskeletal: Reports: no symptoms. Skin: Reports: no symptoms. Neurological/Psychological: Reports: no symptoms. Hematologic/Endocrine: Reports: no symptoms. Immunologic/Allergic: Reports: no symptoms. All Other Systems: Reviewed and Negative (Adair Thurman) Physical Exam Physical Exam General Appearance: no apparent distress, alert, comfortable, obese Head: atraumatic Eyes: Bilateral: normal appearance, PERRL, EOMI. Ears, Nose, Throat: normal pharynx, normal ENT inspection Neck: normal inspection Respiratory: normal breath sounds, chest non-tender Cardiovascular: regular rate/rhythm, systolic murmur Peripheral Pulses: 2+ radial (R) Gastrointestinal: normal bowel sounds, soft, non-tender Neurologic/Psych: no motor/sensory deficits, awake, alert, oriented x 3 Skin: intact Comments: Noted bilateral upper extremity full active range of motion and nontender Noted bilateral lower extremity nontender normal inspection decreased active range of motion and hip and ankle NOTED SACRAL REGION - GENERALIZED BLANCHING ERYTHEMA MILD TENDERNESS Core Measures ACS in differential dx? No CVA/TIA Diagnosis No Sepsis Present: No Sepsis Focused Exam Completed? No (Richard PABON,Adair) Progress Differential Diagnosis: anemia, benign positional vertigo, CVA/stroke, dehydration, drug intoxication, encephalitis, electrolyte imbalance, GI bleed, hypoglycemia, hypoxia, intracranial Hem., intracranial mass/tumor, meningitis, migraine BENITES, pneumonia, postural hypotension, presyncope, post-traumatic vertigo , sepsis, seizure disorder, subarachnoid Hem., UTI/pyelo, vertebrobasilar insuff Plan of Care: Orders Procedure Date/time Status Heart Healthy Diet 08/09 B Active Consistent Carbohydrate 1 08/[address] in observation 08/08 1910 Active ED Holding Orders 08/08 191 Active Vital Signs 08/08 191 Active Code Status 08/08 1911 Active PT Evaluate & Treat 08/08 0700 Active PT Evaluate & Treat 08/08 0609 Active CASE MANAGEMENT CONSULT 08/08 0609 Active Theraputic Activities 15 Min 08/08 UNK Complete Therapeutic Exercise X 15 08/08 UNK Complete MOBILITY GOAL STATUS 08/08 UNK Complete MOBILITY CURRENT STATUS 08/08 UNK Complete PT EVAL LOW COMPLEX 20 MIN 08/08 UNK Complete Add-on Test (ER Only) 08/07 2302 Active CULTURE,URINE 08/07 224 Active URINALYSIS 08/07 2204 Complete COMPREHENSIVE METABOLIC PANEL 08/07 2204 Complete CBC WITHOUT DIFFERENTIAL 08/07 2204 Complete Current Medications Sig/Srinath Start time Last Medication Dose Stop Time Status Admin Nitrofurantoin 50 MG Q6 08/07 2359 UNVr 08/08 (Macrodantin 50MG 1808 Cap) Laboratory Tests 08/07/17 2240: Urinalysis LIGHT H, Urine Color YEL, Urine Clarity TURBD H, Urine pH 6.0, Ur Specific [place] 1.025, Urine Protein 100 H, Urine Ketones NEG, Urine Nitrite NEG, Urine Bilirubin NEG, Urine Urobilinogen 0.2, Ur Leukocyte Esterase LARGE H , Ur Microscopic SEDIMENT EXAMINED, Urine RBC 5-10 H, Urine WBC PACKD H, Ur Epithelial Cells FEW, Urine Bacteria PACKD H, Urine Mucus FEW, Urine Hemoglobin MOD H, Urine Glucose 100 H 08/07/17 2220: Anion Gap 14, Estimated GFR 40 L, BUN/Creatinine Ratio 20.0, Glucose 289 H, Calcium 9.7, Total Bilirubin 0.4, AST 23, ALT 34, Alkaline Phosphatase 123, Total Protein 6.8, Albumin 3.7, Globulin 3.1, Albumin/Globulin Ratio 1.2, CBC w Diff NO MAN DIFF REQ, RBC 4.34, MCV 86.2, MCH 28.0, MCHC 32.5 L, RDW 15.7 H, MPV 7.3 L, Gran % 77.6 H, Lymphocytes % 11.3 L, Monocytes % 8.4, Eosinophils % 2.4, Basophils % 0.3, Absolute Granulocytes 8.9 H, Absolute Lymphocytes 1.3, Absolute Monocytes 1.0 H, Absolute Eosinophils 0.3, Absolute Basophils 0 Microbiology 08/08 2239 URINE ROUT: Urine Culture - RES GRAM NEGATIVE RODS Patient on initial arrival was in no apparent distress resting comfortably at bedside and denies any signs of illness or infection. No concerns of stroke patient Discussed patient with case management Patient will be evaluated for weightbearing and ambulation in the emergency room Monty Connell MD does state with me that he evaluated patient and had exam findings of generalized foot pain x-rays were resulted showing degenerative changes no acute process. Patient does note to have concerns of bacteria urine culture pending per previous microbiology results of urine culture nitrofurantoin was administered CONCERN OF STAGE 1 PRESSURE ULCER OF SACRUM NO CONCERN AT THIS TIME OF CELLULITIS. It is noted to me that nursing staff tried to evaluate patient for weightbearing status however due to generalized weakness and fatigue this evaluation failed in the emergency room. Physical therapy consultation was ordered for tomorrow Discuss hand off with Dr. Connell Diagnostic Imaging: Viewed by Me: Radiology Read. Radiology Impression: no acute abnormality, no fracture Initial ED EKG: none Hand-Off Endorsed To: Becki LOWE,Monty Purvis Endorsed Time: 99 Pending: consult Comments: PATIENT: JHONATHAN HOGAN PRESENT AGE: 77 PATIENT ACCOUNT NO: [id number] : 40 LOCATION: [facility] ORDERING PHYSICIAN: Adair PABON SERVICE DATE: 08/07/17 EXAM TYPE: RAD - XRY-FOOT COMPLETE, R EXAMINATION: XR FOOT, RIGHT CLINICAL INFORMATION: Right foot pain COMPARISON: None TECHNIQUE: Evaluation of the right foot limited to AP and lateral views. FINDINGS: Osteopenia. Mild to moderate degenerative changes with prominent dorsal osteophytes at the 1st TMT joint. There is a large heel spur. IMPRESSION: Degenerative findings with no acute osseous abnormality. DICTATED BY: Sumanth Kim MD DATE/TIME DICTATED:08/07/17 / 2258 (Adair Thurman) Comments: 08/08/2017 5:59:05 AM patient signed out to me by PA at shift oil change technician. 08/08/2017 7:26:40 PM patient was admitted to observation by Dr. Alvares and was not signed out to me at shift oil change technician. (Becki LOWE,Monty Purvis) Departure Departure Disposition: STILL A PATIENT Condition: Stable Clinical Impression Primary Impression: Weakness Secondary Impressions: Hyperglycemia, Pressure ulcer of sacral region, stage 1, UTI (urinary tract infection) Referrals: Danyelle LOWE,Yoel Jackson (PCP/Family) Departure Forms: Customer Survey General Discharge Information (Adair Thurman) PA/BODYWORK THERAPIST Co-Sign Statement Statement: ED Attending supervision documentation- [X] I saw and evaluated the patient. I have also reviewed all the pertinent lab results and diagnostic results. I agree with the findings and the plan of care as documented in the PA's/BODYWORK THERAPIST's documentation. Patient presents for evaluation of difficulty ambulating. Physical examination reveals tenderness of the right foot and generalized weakness of the extremities. [] I have reviewed the ED Record and agree with the PA's/BODYWORK THERAPIST's documentation. [] Additions or exceptions (if any) to the PAs/BODYWORK THERAPIST's note and plan are summarized below: [] (Becki LOWE,Monty Purvis) Departure Comments 08/08/17 10:43 AM The patient was signed out to me by Dr. Connell at 7 AM. She is pending PT and case management. (Monty Alvares DO)
[2017-08-07] MEDS ORDERED: LIDODERM1 EACH TOP (21:59)
[2017-08-07] MEDS ORDERED: TRAMADOL HCL50 M1 PO (22:02)
[2017-08-07] MEDS ORDERED: ZOCOR80 M1 PO (22:03)
[2017-08-07] MEDS ORDERED: DULOXETINE HCL30 MG PO (22:04)
[2017-08-07 22:42] LABS: ABSOLUTE BASOPHIL COUNT 0 /CUMM (0.0-0.2); ABSOLUTE EOSINOPHIL COUNT 0.3 /CUMM (0.0-0.7); ABSOLUTE GRANULOCYTE CT 8.9 /CUMM (1.4-6.5); ABSOLUTE LYMPH COUNT 1.3 /CUMM (1.2-3.4); BASOPHIL % 0.3 % (0.0-2.0); EOSINOPHIL % 2.4 % (0-5); GRANULOCYTE % 77.6 % (42.2-75.2); HEMATOCRIT 37.4 % (37-47); MEAN CORPUSCULAR HGB CONC 32.5 G/DL (33.0-37.0); MEAN CORPUSCULAR VOLUME 86.2 FL (81.0-99.0); MEAN PLATELET VOLUME 7.3 FL (7.4-10.4); PLATELET COUNT 710 /CUMM (130-400); RBC DISTRIBUTION WIDTH 15.7 % (11.5-14.5); RED BLOOD CELL CT 4.34 /CUMM (4.20-5.40); WHITE BLOOD CELL COUNT 11.5 /CUMM (4.8-10.8)
--- NOTE | 2017-08-07 23:04 | RADIOLOGY REPORT ---
EXAMINATION: XR FOOT, RIGHT CLINICAL INFORMATION: Right foot pain COMPARISON: None TECHNIQUE: Evaluation of the right foot limited to AP and lateral views. FINDINGS: Osteopenia. Mild to moderate degenerative changes with prominent dorsal osteophytes at the 1st TMT joint. There is a large heel spur. IMPRESSION: Degenerative findings with no acute osseous abnormality.
--- NOTE | 2017-08-08 21:25 | History & Physical ---
Pierre Yeboah 08/08/172123: General Information and HPI MD Statement: I have seen and personally examined JHONATHAN HOGAN and documented this H&P. The patient is a 77 year old F who presented with a patient stated chief complaint of [difficult ambulation]. Source of Information: patient, old records Exam Limitations: no limitations History of Present Illness: This is a 77-year-old female with past medical history of HTN, HLD, carotid stenosis s/p R CEA, DM, CAD S/P stent, HFpEF, chronic back pain, osteoarthritis, urinary incontinence, spinal stenosis wheelchair-bound for outside her apartment activity, and hysterectomy. She presented to emergency department from assisted living with generalized weakness. She was recently admitted and discharged from [facility] on July 21 placed in short-term rehabilitation [facility], she stated that they discharged her unexpectedly today and did not evaluate her weightbearing function were she was transferred to [facility] where she called EMS due to the [facility] resident's cannot care for her and she was almost to fall down from her recliner bed due to her generalized weakness. The patient stated that she usually was rotated to walker inside her apartment, and she usually cannot lift her feet she only move them on the floor level(shuffle), she states when she wake up she was her recliner bed to stand up and hold her rotated to walker that she was inside her apartment to go to the bathroom and from one room to another take a shower but since she was sent from the short-term rehabilitation she cannot even do that. She stated outside of her apartment she always used a wheelchair. Also she reports she feels tired, weak and fatigued. She states she cannot feel the urine, she reports only feeling that she was laying on the side, otherwise she denies any increased frequency, hematuria, dysuria, pain during urination as she cannot feel anything there. Currently she denies any fever, chills, shortness of breath, chest pain, headaches, wheezing, abdominal pain, diarrhea, constipation. In the ED patient was kept more than 20 hours as a.m. for short-term rehabilitation placement. She had abnormal urine analysis and urine culture came back positive for gram-negative Denis, she received 1 dose of Bactrim and after that she was placed on nitrofurantoin. She had a low-grade fever of 100.2. Allergies/Medications Allergies: Coded Allergies: atorvastatin (From LIPITOR) (Severe, SWOLLEN TONGUE AND DRY MOUTH 07/11/17) Penicillins (Intermediate, HIVES 06/29/17) amoxicillin (DRY MOUTH 06/29/17) Home Med list Aspirin (Children's Aspirin) 81 MG TAB.CHEW 1 TAB PO DAILY HEART HEALTH ( Reported) Cholecalciferol (Vitamin D3) 1,000 UNIT TABLET 2,000 UNITS PO DAILY BONE STRENGTH (Reported) Diazepam 5 MG TABLET 1 TAB PO Q8P PRN SPASMS (Reported) Duloxetine HCl 30 MG CAPSULE.DR 1 CAP PO DAILY UNKNOWN (Reported) Ezetimibe (Zetia) 10 MG TABLET 1 TAB PO DAILY CHOLESTEROL (Reported) Ferrous Sulfate 325 MG (65 MG IRON) TABLET 1 TAB PO TID SUPPLEMENT (Reported) Furosemide 20 MG TABLET 60 MG PO DAILY fluid Lidocaine (Lidoderm) 5 % ADH..PATCH 1 PAT TOP DAILY PAIN (Reported) may wear up to 12 hours Metoprolol Tartrate (Lopressor) 50 MG TABLET 1.5 TAB PO BID BP (Reported) Mirabegron (Myrbetriq) 25 MG TAB.ER.24H 1 TAB PO DAILY BLADDER HEALTH ( Reported) Nifedipine (Procardia) 10 MG CAPSULE 20 MG PO TID BP Omeprazole 40 MG CAPSULE.DR 1 CAP PO DAILY GI (Reported) Simvastatin (SIMVASTATIN*) 80 MG TABLET 0.5 TAB PO DAILY CHOLESTEROL ( Reported) Sitagliptin Phosphate (Januvia) 50 MG TABLET 1 TAB PO DAILY diabetes ( Reported) Sodium Bicarbonate 650 MG TABLET 1 TAB PO BID SUPPLEMENT (Reported) Tramadol HCl 50 MG TABLET 1 TAB PO Q4H PRN PAIN (Reported) Past History Travel History Traveled to [place] past 21 day No Medical History Neurological: NONE, restless leg syndrome EENT: NONE Cardiovascular: NONE (peripheral vascular disease), CAD (s/p angioplasty), CHF, hypertension, hyperlipidemia, BLOCKED L CAROTID ARTERY Respiratory: NONE Gastrointestinal: NONE Hepatic: NONE Renal: UTI Musculoskeletal: chronic back pain, osteoarthritis, spinal stenosis Psychiatric: NONE, depression Endocrine: DM Blood Disorders: NONE Cancer(s): NONE 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 FH: CAD (coronary artery disease), Onset: 50-60. BROTHER (COPD). FH: cancer FH: COPD (chronic obstructive pulmonary disease) FATHER BROTHER (myocardial infarction). MOTHER FH: cancer SON SON (Mi in 40's). MOTHER ( from cancer of the liver and kidney). Psychosocial History Services at Home: Home Health Aide ETOH Use: denies use Illicit Drug Use: denies illicit drug use Functional Ability ADLs Independent: dressing, eating, toileting, bathing. Ambulation: walker, wheelchair Review of Systems Review of Systems Constitutional: Reports: see HPI. Cardiovascular: Reports: see HPI. Respiratory: Reports: see HPI. GI: Reports: see HPI. Genitourinary: Reports: see HPI. Exam & Diagnostic Data Last 24 Hrs of Vital Signs/I&O Vital Signs Date Time Temp Pulse Resp B/P B/P Pulse O2 O2 Flow FiO2 Mean Ox Delivery Rate 08/08 2253 98.0 109 20 178/82 98 Room Air 08/08 2146 98.1 89 18 163/84 94 Room Air 08/08 1829 98.9 88 18 161/74 95 Nasal Cannula 08/08 1656 100.2 101 18 174/77 95 08/08 1412 85 20 166/61 96 Room Air 08/08 1059 98.2 98 20 158/71 96 Room Air 08/08 0850 98.0 100 20 177/77 97 Room Air 08/08 0621 98.2 99 18 129/61 98 Room Air 08/08 0052 98.3 100 18 119/62 98 Room Air Intake & Output 08/08 1600 08/08 0800 08/08 0000 Intake Total Output Total 150 Balance -150 Output, Urine 150 Patient 207 lb Weight Weight Reported by Patient Measurement Method Physical Exam General Appearance Alert, Oriented X3, Cooperative Skin Temp/Moisture Exam: Warm/Dry HEENT PERRLA, EOMI Neck Supple Cardiovascular Normal S1, Normal S2, murmur Lungs Clear to Auscultation, Normal Air Movement Abdomen Normal Bowel Sounds, Soft, No Tenderness Neurological Normal Speech, Sensation Intact, strength 2-3 out of 5 in the left lower extremity, strength 3-4 in right lower Exts Extremities trace bilateral edema, muscle hypotrophy noted on the left lower extremity Last 24 Hrs of Labs/Robert: Laboratory Tests 08/07/17 2240: Urinalysis LIGHT H, Urine Color YEL, Urine Clarity TURBD H, Urine pH 6.0, Ur Specific [place] 1.025, Urine Protein 100 H, Urine Ketones NEG, Urine Nitrite NEG, Urine Bilirubin NEG, Urine Urobilinogen 0.2, Ur Leukocyte Esterase LARGE H , Ur Microscopic SEDIMENT EXAMINED, Urine RBC 5-10 H, Urine WBC PACKD H, Ur Epithelial Cells FEW, Urine Bacteria PACKD H, Urine Mucus FEW, Urine Hemoglobin MOD H, Urine Glucose 100 H 08/07/17 2220: Anion Gap 14, Estimated GFR 40 L, BUN/Creatinine Ratio 20.0, Glucose 289 H, Calcium 9.7, Total Bilirubin 0.4, AST 23, ALT 34, Alkaline Phosphatase 123, Total Protein 6.8, Albumin 3.7, Globulin 3.1, Albumin/Globulin Ratio 1.2, CBC w Diff NO MAN DIFF REQ, RBC 4.34, MCV 86.2, MCH 28.0, MCHC 32.5 L, RDW 15.7 H, MPV 7.3 L, Gran % 77.6 H, Lymphocytes % 11.3 L, Monocytes % 8.4, Eosinophils % 2.4, Basophils % 0.3, Absolute Granulocytes 8.9 H, Absolute Lymphocytes 1.3, Absolute Monocytes 1.0 H, Absolute Eosinophils 0.3, Absolute Basophils 0 Diagnostic Data Other Results EXAMINATION: XR KNEE, LEFT CLINICAL INFORMATION: Pain decreased range of motion COMPARISON: None TECHNIQUE: Four views of the left knee. FINDINGS: I do not see a fracture. There is mild patellofemoral arthrosis. There is mild joint space narrowing in the medial lateral compartments indicative of mild arthrosis. There is some calcification the soft tissues likely dystrophic medial to the medial femoral condyle. Arterial calcification present. IMPRESSION: Mild arthrosis of the left knee. No fracture or acute abnormality EXAMINATION: XR HIP, LEFT CLINICAL INFORMATION: Evaluate for fracture. Pain decreased range of motion COMPARISON: CT scan of the abdomen and pelvis March 2015. TECHNIQUE: Two views of the left hip. FINDINGS: There is severe osteoarthritis of the left hip with joint space narrowing and marginal osteophytes probably unchanged compared with the CT examination. I do not see a fracture There is prominent arterial calcification present. IMPRESSION: Severe osteoarthritis of left hip. I do not see a fracture. EXAMINATION: XR FOOT, RIGHT CLINICAL INFORMATION: Right foot pain COMPARISON: None TECHNIQUE: Evaluation of the right foot limited to AP and lateral views. FINDINGS: Osteopenia. Mild to moderate degenerative changes with prominent dorsal osteophytes at the 1st TMT joint. There is a large heel spur. IMPRESSION: Degenerative findings with no acute osseous abnormality. Assessment/Plan Assessment: This is a 77-year-old female with past medical history of HTN, HLD, carotid stenosis s/p R CEA, DM, CAD S/P stent, HFpEF, chronic back pain, osteoarthritis, urinary incontinence, spinal stenosis wheelchair-bound for outside her apartment activity, and hysterectomy. She presented to emergency department from assisted living with generalized weakness. She was recently admitted and discharged from [facility] on July 21 placed in short-term rehabilitation [facility], she stated that they discharged her unexpectedly today and did not evaluate her weightbearing function were she was transferred to [facility] where she called EMS due to the [facility] resident's cannot care for her and she was almost to fall down from her recliner bed due to her generalized weakness. Problem list: -Generalized weakness/deconditioning -Urinary tract infection -Acute on Chronic kidney disease stage 2 -Dehydration Plan: -Admit patient to general medicine floor -Vitals every shift, fall precaution -Continue by mouth nitrofurantoin 50 mg po q6hr pending culture sensitivity and specificity. -Gentle IV fluid hydration of 50 cc hr 1/2 NS -Physical therapy consultation in a.m. -X-ray of the left knee and hip. -Continue home medication lasix to be start tomorrow. -Accu-Chek, carbohydrate consistent diet, insulin sliding scale -Pain pathway -DVT prophylaxis: subcutaneous heparin -DNI DNR As Ranked By This Provider Problem List: 1. UTI (urinary tract infection) Core Measures/Misc (02/09) Acute Coronary Syndrome ACS Diagnosis: No Congestive Heart Failure Congestive Heart Failure Diagnosis No Cerebrovascular Accident CVA/TIA Diagnosis: No VTE (View Protocol) VTE Risk Factors Age>40 No Mechanical VTE Prophylaxis d/t N/A MechProphylax Ordered No VTE Pharm Prophylaxis d/t NA PharmProphylax ordered Sepsis (View protocol) Sepsis Present: No Roverto LOWE, [facility] 08/09/17 0118: Attending MD Review Statement Attending Statement Attending MD Statement: examined this patient, discuss w/resident/PA/PRESS MACHINE OPERATOR, agreed w/resident/PA/PRESS MACHINE OPERATOR, reviewed images, amended to note Attending Assessment/Plan: 77 yo F with h/o HTN, CAD s/p stent, carotid stenosis s/p R CEA, DM, HFpEF, chronic back pain, OA, spinal stenosis, CKD stage 3, was recently admitted to [facility] (07/11 07/21) for diarrhea (not Cdiff)/ physical deconditioning and was discharged to [facility] for short term rehab. She was discharged from the [facility] back to assisted living at [facility] a day prior. However, patient was unable to ambulate, felt weak and was sent back to the ER on August 07. Patient at baseline uses a motorized wheelchair outside her apartment, sleeps on a recliner and can do minimal activity at home can pivot, use her rolator to drag herself from the recliner to the bathroom or living room. She does not walk much, and is unable to lift her legs to ambulate at baseline. She has severe osteoarthritis and her left leg is weaker compared to the right. At the [facility], patient reports working with physical therapy and declined one session as she was not feeling well. She is upset that the [facility] reported that she refused to work with PT, which is not the case. She was unable to stand or ambulate at the [facility] and they discharged her. Patient arrived to ER on August 07, case management were trying to place her in a rehab facility but they have been unable to get insurance authorization for the same at this point. Patient reports urinary incontinence and some discomfort when she urinates but no frequency or dysuria. She denies abdominal pain, nausea, vomiting, chest pain or dyspnea. She reports left knee pain and spasms to left leg - which is chronic. Vitals: Tmax 100.2, HR 80-100's, BP 160/80, sats 98% RA. Exam: AAO, morbidly obese F, in no distress. She was incontinent of a large amount of urine. Perineal region was edematous and erythema noted to groin area. Buttocks and sacral area blanchable redness. Patient has dry mucous membranes, Neck supple, Chest clear, Heart S1S2 regular, Abd soft, obese, nontender, LE: trace b/l lower extremity edema. Left calf muscle hypotrophy noted compared to right calf. Neuro exam essentially normal except for power in lower extremity RLE 3/5 and LLE 2/5. Labs: WBC 11.5, BUN 26, creat 1.3 (baseline), glucose 289. UA turbid, proteinuria, nitrite negative, large leukocyte esterase, packed WBC, packed bacteria, RBC 5-10. Right foot Xray: degenerative changes. Echo (2011): EF > 60%, stage 1 diastolic dysfunction. Assessment and plan: 1. Weakness, unable to ambulate 2. Physical deconditioning 3. UTI 4. CKD stage 3 stable 5. Diabetes mellitus with hyperglycemia Since case management was unable to facilitate placement with patient's insurance company, hence being placed on observation status. She is not safe to be sent back to home/ assisted living. - 23 hour observation on General medicine - Case management to follow for STR placement please review CM notes - Urine culture growing GNR based on previous cultures enterococcus, Ecoli, klebsiella sensitive to nitrofurantoin we will continue PO nitrofurantoin. Taper antibiotics based on final sensitivities. - Obtain baseline EKG - Physical therapy eval - Gentle IV hydration - Left hip and knee Xray - Resume home meds aspirin, metoprolol, omeprazole, zocor, nifedipine, lasix,, myrbetriq, iron tabs, valium, zetia and sodium bicarb tabs. - Hold januvia, initiate novolog SS while inpatient - Pain management with tramadol and tylenol. - Wound care to the back/ decubitus DVT ppx Hep SC. DNR/I (POA is son - Fernando) EKG done at 5 am: sinus rhythm, nonspecific T wave changes. Observation Initial Note - I have personally examined JHONATHAN HOGAN on 08/09/17 at 0116. The disposition of JHONATHAN HOGAN is uncertain at this time and before a determination can be made, she requires a period of observation for the following reasons [Patient with gait instability, unsafe to send home. Unable to facilitate placement with insurance company, hence needs observation on medical floor.]
--- NOTE | 2017-08-08 22:38 | RADIOLOGY REPORT ---
EXAMINATION: XR HIP, LEFT CLINICAL INFORMATION: Evaluate for fracture. Pain decreased range of motion COMPARISON: CT scan of the abdomen and pelvis March 2015. TECHNIQUE: Two views of the left hip. FINDINGS: There is severe osteoarthritis of the left hip with joint space narrowing and marginal osteophytes probably unchanged compared with the CT examination. I do not see a fracture There is prominent arterial calcification present. IMPRESSION: Severe osteoarthritis of left hip. I do not see a fracture.
--- NOTE | 2017-08-08 22:40 | RADIOLOGY REPORT ---
EXAMINATION: XR KNEE, LEFT CLINICAL INFORMATION: Pain decreased range of motion COMPARISON: None TECHNIQUE: Four views of the left knee. FINDINGS: I do not see a fracture. There is mild patellofemoral arthrosis. There is mild joint space narrowing in the medial lateral compartments indicative of mild arthrosis. There is some calcification the soft tissues likely dystrophic medial to the medial femoral condyle. Arterial calcification present. IMPRESSION: Mild arthrosis of the left knee. No fracture or acute abnormality
[2017-08-08 22:53] VITALS: BP 178/82
[2017-08-09 02:15] VITALS: BP 160/80
[2017-08-09 04:24] VITALS: BP 146/64
[2017-08-09 06:03] VITALS: BP 158/68
--- NOTE | 2017-08-09 08:47 | PN-Observation ---
Epi LOWE,[facility] 08/09/17 0847: Observation Note Observation Note _ I have personally examined JHONATHAN HOGAN. her disposition is uncertain at this time. Before a determination can be made, she requires continued observation for the following reasons [generalized weakness]. Assessment/Plan Medical Assessment: This is a 77-year-old female with past medical history of HTN, HLD, carotid stenosis s/p R CEA, DM, CAD S/P stent, HFpEF, chronic back pain, osteoarthritis, urinary incontinence, spinal stenosis wheelchair-bound for outside her apartment activity, and hysterectomy. She presented to emergency department from assisted living with generalized weakness. She was recently admitted and discharged from [facility] on July 21 placed in short-term rehabilitation [facility], she stated that they discharged her unexpectedly today and did not evaluate her weightbearing function were she was transferred to [facility] where she called EMS due to the [facility] resident's cannot care for her and she was almost to fall down from her recliner bed due to her generalized weakness. Problem list: -Generalized weakness/deconditioning -Urinary tract infection -Acute on Chronic kidney disease stage 2 -Dehydration Plan: -Continue nitrofurantoin and change antibiotic according to culture and sensitivity. -Physical therapy follow-up. -Vitals every shift, fall precaution - Patient hemoglobin decreased from 12.1-8.4. We will start her on by mouth iron and follow up CBC in the a.m. -Continue by mouth nitrofurantoin 50 mg po q6hr pending culture sensitivity and specificity. -Gentle IV fluid hydration of 50 cc hr 1/2 NS -Continue home medication lasix to be start tomorrow. -Accu-Chek, carbohydrate consistent diet, insulin sliding scale -Pain pathway -DVT prophylaxis: subcutaneous heparin -DNI DNR Problem List: 1. Acute kidney injury 2. UTI (urinary tract infection) DVT/Prophylaxis: mechanical, pharmacological Subjective Follow-up For: Generalized weakness, UTI Complaints: no complaints Subjective: Patient was seen and examined at bedside. No overnight events. She offers no complaints. She denies chest pain, chest pressure, nausea, vomiting, abdominal pain, pain in her legs. Review of Systems Constitutional: Reports: no symptoms. Cardiovascular: Reports: no symptoms. Respiratory: Reports: no symptoms. Gastrointestinal: Reports: no symptoms. Genitourinary: Reports: no symptoms. Objective Last 24 Hrs of Vital Signs/I&O Vital Signs Date Time Temp Pulse Resp B/P B/P Pulse O2 O2 Flow FiO2 Mean Ox Delivery Rate 08/09 1652 98.3 81 20 149/84 08/09 1452 98.1 84 20 140/76 92 Room Air 08/09 0958 85 162/78 08/09 0800 96 08/09 0603 98.0 79 20 158/68 93 08/09 0424 77 146/64 93 08/09 0220 102 160/80 08/09 0215 102 160/80 08/08 2253 98.0 109 20 178/82 98 Room Air 08/08 2146 98.1 89 18 163/84 94 Room Air 08/08 1829 98.9 88 18 161/74 95 Nasal Cannula Intake & Output 08/09 1600 08/09 0800 08/09 0000 Intake Total 1000 370 Output Total Balance 1000 370 Intake, IV 400 250 Intake, Oral 600 120 Number 0 Bowel Movements Patient 211 lb 212 lb 212 lb Weight Weight Bed scale Measurement Method Physical Exam General Appearance: Alert, Oriented X3, Cooperative, No Acute Distress Skin: No Rashes Cardiovascular: Regular Rate, Normal S1, Normal S2 Lungs: Normal Air Movement Abdomen: Soft, No Tenderness, No Hepatospenomegaly Neurological: Strength at 5/5 X4 Ext, Normal Tone, Sensation Intact Extremities: No Edema, Normal Pulses Vascular: Normal Pulses Current Medications: Current Medications Sig/Srinath Start time Last Medication Dose Route Stop Time Status Admin Acetaminophen 650 MG .STK-MED ONE 08/09 0018 DC PO 08/09 0019 Acetaminophen 650 MG Q6P PRN 08/08 2130 AC 08/09 PO 0020 Aspirin 81 MG DAILY 08/09 1000 AC 08/09 PO 0955 Atorvastatin Calcium 20 MG 1700 08/09 1700 CAN PO Diazepam 5 MG Q8P PRN 08/08 2145 AC PO Duloxetine HCl 30 MG DAILY 08/09 1000 AC 08/09 PO 0955 Ezetimibe 10 MG DAILY 08/09 1000 AC 08/09 PO 0955 Ferrous Sulfate 325 MG BID 08/09 1600 AC 08/09 PO 1648 Furosemide 60 MG DAILY 08/09 1000 AC 08/09 PO 0955 Heparin Sodium 5,000 UNIT Q8 08/08 2230 AC 08/09 (Porcine) SC 1410 Insulin Aspart 0 TIDAC 08/09 0800 AC 08/09 SC 1654 Metoprolol Tartrate 75 MG BID 08/08 2359 DC PO Metoprolol Tartrate 75 MG BID 08/08 2359 AC 08/09 PO 0955 Nifedipine 20 MG TID 08/09 1600 AC 08/09 PO 1652 Nifedipine 20 MG TID 08/08 2230 DC 08/09 PO 0958 Nitrofurantoin 50 MG Q6 08/07 2359 AC 08/09 PO 1737 Nystatin 1 KATHERIN TID 08/09 1000 AC 08/09 TOP 1654 Omeprazole 40 MG DAILY AC 08/09 0700 AC 08/09 PO 0812 Oxycodone/ 1 TAB Q8P PRN 08/08 2130 AC Acetaminophen PO Simvastatin 40 MG DAILY 08/09 1000 AC 08/09 PO 0956 Sodium Bicarbonate 650 MG BID 08/08 2230 DC 08/09 PO 0955 Sodium Chloride 1,000 ML Q13H 08/09 0015 DC 08/09 IV 08/09 1314 0222 Sodium Chloride 1,000 ML .[id number] 08/08 2130 DC IV 08/09 1049 Tramadol HCl 50 MG Q8P PRN 08/08 2145 AC PO Trimethoprim/ 0 .STK-MED ONE 08/08 1745 DC Sulfamethoxazole PO Last 24 Hrs of Labs/Mics: Laboratory Tests 08/09/17 0727: Anion Gap 13, Estimated GFR 44 L, BUN/Creatinine Ratio 17.5, CBC w Diff NO MAN DIFF REQ, RBC 2.98 L, MCV 86.3, MCH 28.0, MCHC 32.5 L, RDW 16.0 H, MPV 7.4, Gran % 75.0, Lymphocytes % 14.7 L, Monocytes % 7.6, Eosinophils % 2.2, Basophils % 0.5, Absolute Granulocytes 6.4, Absolute Lymphocytes 1.2, Absolute Monocytes 0.6, Absolute Eosinophils 0.2, Absolute Basophils 0 Sally Shields MD 08/09/17 1208: Observation Note Observation Note _ I have personally examined JHONATHAN HOGAN. her disposition is uncertain at this time. Before a determination can be made, she requires continued observation for the following reasons []. Patient seen and examined. Resting comfortably. Not in acute distress. Complains of generalized weakness. Denies pain at present. She is afebrile hemodynamically stable. She denies any dysuria present. She did have a low- grade fever of 100 point on presentation. She did have leukocytosis of 11.5 on presentation as well. Patient reports that she has no works in several years but is able to participate in some physical therapy and is able to pivot for transfers. She is still upset that she was discharged unexpectedly from a short-term rehabilitation facility. She is of the impression that she was discharged because she did not participate in one session of therapy because she was not feeling well that day. Since getting home she has been unable to perform transfers so her son suggested that she come to [facility] for reevaluation. While in the ER [facility] however approval from her insurance company has not yet been obtained so she was moved to the medical unit for further management. On exam she does not appear to be in acute distress. Heart sounds are regular. Lungs are clear bilaterally. Abdomen soft and nontender. She has trace peripheral edema. She is able to move all extremities spontaneously and to command however she does have bilateral lower extremity weakness which she reports is chronic. Recommendations: -Physical therapy as tolerated. -Repeat CBC in a.m. to trend her white cell count and hemoglobin level. She is noted to have a drop in hemoglobin compared to admission. She however does have chronic iron deficiency anemia. -Supplement iron orally. -She has history of chronic kidney disease. Creatinine level is stable. She is not acidotic at this time. Discontinue sodium bicarb for now. -Follow-up urine cultures. Adjust antibiotic therapy per sensitivity. -She is currently awaiting insurance approval for [facility] in a [facility] facility.
[2017-08-09 09:06] LABS: ABSOLUTE BASOPHIL COUNT 0 /CUMM (0.0-0.2); ABSOLUTE EOSINOPHIL COUNT 0.2 /CUMM (0.0-0.7); ABSOLUTE GRANULOCYTE CT 6.4 /CUMM (1.4-6.5); ABSOLUTE LYMPH COUNT 1.2 /CUMM (1.2-3.4); ABSOLUTE MONOCYTE COUNT 0.6 /CUMM (0.10-0.60); BASOPHIL % 0.5 % (0.0-2.0); EOSINOPHIL % 2.2 % (0-5); MEAN CORPUSCULAR HGB CONC 32.5 G/DL (33.0-37.0); MEAN CORPUSCULAR VOLUME 86.3 FL (81.0-99.0); MEAN PLATELET VOLUME 7.4 FL (7.4-10.4); PLATELET COUNT 434 /CUMM (130-400); WHITE BLOOD CELL COUNT 8.5 /CUMM (4.8-10.8)
[2017-08-09 11:09] LABS: RED BLOOD CELL CT 2.98 /CUMM (4.20-5.40)
[2017-08-09 11:10] LABS: HEMATOCRIT 25.7 % (37-47)
[2017-08-09 14:52] VITALS: BP 140/76
[2017-08-09 22:23] VITALS: BP 138/79
--- NOTE | 2017-08-10 07:27 | PN-Observation ---
Epi LOWE,Kimberli 08/10/17 0726: Observation Note Observation Note _ I have personally examined JHONATHAN HOGAN. her disposition is uncertain at this time. Before a determination can be made, she requires continued observation for the following reasons [generalized weakness]. Assessment/Plan Medical Assessment: mergency department from assisted living with generalized weakness. She was recently admitted and discharged from [facility] on July 21 placed in short-term rehabilitation [facility], she stated that they discharged her unexpectedly today and did not evaluate her weightbearing function were she was transferred to [facility] where she called EMS due to the [facility] resident's cannot care for her and she was almost to fall down from her recliner bed due to her generalized weakness. Problem list: -Generalized weakness/deconditioning -Urinary tract infection -Acute on Chronic kidney disease stage 2 -Dehydration Plan: -she is going to short-term rehabilitation. -Vitals every shift, fall precaution - Patient hemoglobin decreased from 12.1-8.4. Continue ferrous sulfate. follow up CBC in the a.m. -Continue by mouth nitrofurantoin 50 mg po q6hr pending culture sensitivity and specificity. -Continue home medication lasix. -Accu-Chek, carbohydrate consistent diet, insulin sliding scale -Pain pathway -DVT prophylaxis: subcutaneous heparin -DNI DNR Problem List: 1. Urinary tract infection 2. Pressure ulcer of sacral region, stage 1 Subjective Review of Systems Constitutional: Reports: no symptoms, see HPI. Objective Last 24 Hrs of Vital Signs/I&O Vital Signs Date Time Temp Pulse Resp B/P B/P Pulse O2 O2 Flow FiO2 Mean Ox Delivery Rate 08/11 1600 79 154/84 08/11 1405 97.9 79 20 154/84 94 Room Air 08/11 0956 98.8 80 18 142/68 08/11 0936 80 142/68 08/11 0556 98.8 81 18 149/81 93 Room Air 08/10 2103 92 135/74 08/10 2046 99.1 92 18 135/74 92 Room Air Intake & Output 08/11 1600 08/11 0800 08/11 0000 Intake Total 600 120 720 Output Total Balance 600 120 720 Intake, Oral 600 120 720 Number 1 0 0 Bowel Movements Physical Exam General Appearance: Alert, Oriented X3, Cooperative, No Acute Distress Skin: stage 1 ulcer in cocxy Cardiovascular: Regular Rate, Normal S1, Normal S2, No Murmurs Lungs: Clear to Auscultation, Normal Air Movement Abdomen: Soft, No Tenderness, No Hepatospenomegaly Neurological: Normal Speech, Strength at 5/5 X4 Ext, Normal Tone, Sensation Intact, Cranial Nerves 3-12 NL Current Medications: Current Medications Sig/Srinath Start time Last Medication Dose Route Stop Time Status Admin Acetaminophen 650 MG .STK-MED ONE 08/10 2100 DC PO 08/10 2101 Acetaminophen 650 MG Q6P PRN 08/08 2130 AC 08/10 PO 2103 Aspirin 81 MG DAILY 08/09 1000 AC 08/11 PO 0935 Bisacodyl 10 MG ONCE ONE 08/11 0745 DC 08/11 [place] 08/11 0746 0759 Ciprofloxacin 500 MG BID 08/10 1215 AC 08/11 PO 08/14 1214 0935 Diazepam 5 MG Q8P PRN 08/08 2145 AC 08/10 PO 2103 Duloxetine HCl 30 MG DAILY 08/09 1000 AC 08/11 PO 0935 Ezetimibe 10 MG DAILY 08/09 1000 AC 08/11 PO 0935 Ferrous Sulfate 325 MG BID 08/09 1600 AC 08/11 PO 0935 Furosemide 60 MG DAILY 08/09 1000 AC 08/11 PO 0935 Heparin Sodium 5,000 UNIT Q8 08/08 2230 AC 08/11 (Porcine) SC 1345 Insulin Aspart 0 TIDAC 08/09 0800 AC 08/11 SC 1658 Lidocaine 1 PAT Q24H 08/11 0945 AC 08/11 EXT 1047 Metoprolol Tartrate 75 MG BID 08/08 2359 AC 08/11 PO 0935 Nifedipine 20 MG TID 08/09 1600 AC 08/11 PO 1600 Nystatin 1 KATHERIN TID 08/09 1000 AC 08/11 TOP 1601 Omeprazole 40 MG DAILY AC 08/09 0700 AC 08/11 PO 0618 Oxycodone/ 1 TAB Q8P PRN 08/08 2130 AC Acetaminophen PO Patient Medication 1 ED ONE ONE 08/11 1515 DC Teaching ED 08/11 1516 Simvastatin 40 MG DAILY 08/09 1000 AC 08/11 PO 0935 Tramadol HCl 50 MG Q8P PRN 08/08 2145 AC PO Cornelius LOWE,Sally 08/10/17 1023: Observation Note Observation Note _ I have personally examined JHONATHAN HOGAN. her disposition is uncertain at this time. Before a determination can be made, she requires continued observation for the following reasons []. Addendum Addendum Patient seen and examined. Resting comfortably not in any acute distress. No issues overnight. No new complaints today. Continues complain of generalized weakness. She was seen by physical therapy yesterday however they were unable to get her out of bed due to market deconditioning. She continues to require placement long-term facility. Unfortunately his insurance company. She will remain in the hospital this has been approved. She will remain on observation level of care as recommended by the utilization review service. Patient currently denies any dysuria. She remains afebrile but had a low-grade temperature of 100.2 on presentation. Leukocytosis which initially had improved his persistent today. There was also concern about her hemoglobin level however this has improved today. She is currently around her baseline. Recommendations: -Continue physical therapy as tolerated. -Transition patient to Augmentin. Complete 10 more days of antibiotic therapy. -Continue her antihypertensive regimen. -Continue her antihypertensive regimen.
[2017-08-10 07:43] VITALS: BP 150/79
[2017-08-10 08:52] LABS: ABSOLUTE BASOPHIL COUNT 0.1 /CUMM (0.0-0.2); ABSOLUTE EOSINOPHIL COUNT 0.3 /CUMM (0.0-0.7); ABSOLUTE GRANULOCYTE CT 8.9 /CUMM (1.4-6.5); ABSOLUTE LYMPH COUNT 1.5 /CUMM (1.2-3.4); ABSOLUTE MONOCYTE COUNT 0.7 /CUMM (0.10-0.60); BASOPHIL % 0.4 % (0.0-2.0); EOSINOPHIL % 2.7 % (0-5); MEAN CORPUSCULAR HGB 27.7 PG (27.0-31.0); MEAN CORPUSCULAR HGB CONC 32.1 G/DL (33.0-37.0); MEAN CORPUSCULAR VOLUME 86.2 FL (81.0-99.0); MEAN PLATELET VOLUME 7.5 FL (7.4-10.4); PLATELET COUNT 555 /CUMM (130-400); RBC DISTRIBUTION WIDTH 15.2 % (11.5-14.5); WHITE BLOOD CELL COUNT 11.5 /CUMM (4.8-10.8)
[2017-08-10 09:34] LABS: HEMATOCRIT 34.1 % (37-47); RED BLOOD CELL CT 3.95 /CUMM (4.20-5.40)
[2017-08-10 14:01] VITALS: BP 143/73
[2017-08-10 20:46] VITALS: BP 135/74
[2017-08-11 05:56] VITALS: BP 149/81
--- NOTE | 2017-08-11 07:25 | PN-Observation ---
Epi LOWE,[facility] 08/11/17 0725: Observation Note Observation Note _ I have personally examined JHONATHAN HOGAN. her disposition is uncertain at this time. Before a determination can be made, she requires continued observation for the following reasons [UTI, generalized weakness]. Assessment/Plan Medical Assessment: Assessment: This is a 77-year-old female with past medical history of HTN, HLD, carotid stenosis s/p R CEA, DM, CAD S/P stent, HFpEF, chronic back pain, osteoarthritis, urinary incontinence, spinal stenosis wheelchair-bound for outside her apartment activity, and hysterectomy. She presented to emergency department from assisted living with generalized weakness. She was recently admitted and discharged from [facility] on July 21 placed in short-term rehabilitation [facility], she stated that they discharged her unexpectedly today and did not evaluate her weightbearing function were she was transferred to [facility] where she called EMS due to the [facility] resident's cannot care for her and she was almost to fall down from her recliner bed due to her generalized weakness. Problem list: -Generalized weakness/deconditioning -Urinary tract infection -Acute on Chronic kidney disease stage 2 -Dehydration Plan: -We'll discontinue nitrofurantoin and start her on ciprofloxacin for 10 days.. -Vitals every shift, fall precaution - Patient hemoglobin decreased from 12.1-8.4. Hemoglobin today is 10.9 Continue ferrous sulfate. and follow up CBC -Continue home medication. -Accu-Chek, carbohydrate consistent diet, insulin sliding scale -Pain pathway -DVT prophylaxis: subcutaneous heparin -DNI DNR Plan for discharge to short-term rehabilitation. Problem List: 1. Pressure ulcer of sacral region, stage 1 2. Physical deconditioning 3. Urinary tract infection DVT/Prophylaxis: mechanical, pharmacological Subjective Follow-up For: Urinary tract infection, and physical deconditioning. Complaints: no complaints Subjective: Patient was seen and examined at bedside. She was sitting in a chair comfortably and appears not to be in any acute distress. She is able to ambulate with support. No overnight events. She denies dysuria, fever, chills, chest pain, shortness of breath. Review of Systems Constitutional: Reports: see HPI. Objective Last 24 Hrs of Vital Signs/I&O Vital Signs Date Time Temp Pulse Resp B/P B/P Pulse O2 O2 Flow FiO2 Mean Ox Delivery Rate 08/11 1600 79 154/84 08/11 1405 97.9 79 20 154/84 94 Room Air 08/11 0956 98.8 80 18 142/68 08/11 0936 80 142/68 08/11 0556 98.8 81 18 149/81 93 Room Air 08/10 2103 92 135/74 08/10 2046 99.1 92 18 135/74 92 Room Air Intake & Output 08/11 1600 08/11 0800 08/11 0000 Intake Total 600 120 720 Output Total Balance 600 120 720 Intake, Oral 600 120 720 Number 1 0 0 Bowel Movements Physical Exam General Appearance: Alert, Oriented X3, Cooperative, No Acute Distress Cardiovascular: Regular Rate, Normal S1, Normal S2, No Murmurs Lungs: Clear to Auscultation Abdomen: Normal Bowel Sounds, Soft, No Tenderness, No Hepatospenomegaly Neurological: Normal Speech, Strength at 5/5 X4 Ext, Normal Tone, Sensation Intact Extremities: No Cyanosis, No Edema, Normal Pulses Current Medications: Current Medications Sig/Srinath Start time Last Medication Dose Route Stop Time Status Admin Acetaminophen 650 MG .STK-MED ONE 08/10 2100 DC PO 08/10 2101 Acetaminophen 650 MG Q6P PRN 08/08 2130 AC 08/10 PO 2103 Aspirin 81 MG DAILY 08/09 1000 AC 08/11 PO 0935 Bisacodyl 10 MG ONCE ONE 08/11 0745 DC 08/11 [place] 08/11 0746 0759 Ciprofloxacin 500 MG BID 08/10 1215 AC 08/11 PO 08/14 1214 0935 Diazepam 5 MG Q8P PRN 08/08 2145 AC 08/10 PO 2103 Duloxetine HCl 30 MG DAILY 08/09 1000 AC 08/11 PO 0935 Ezetimibe 10 MG DAILY 08/09 1000 AC 08/11 PO 0935 Ferrous Sulfate 325 MG BID 08/09 1600 AC 08/11 PO 0935 Furosemide 60 MG DAILY 08/09 1000 AC 08/11 PO 0935 Heparin Sodium 5,000 UNIT Q8 08/08 2230 AC 08/11 (Porcine) SC 1345 Insulin Aspart 0 TIDAC 08/09 0800 AC 08/11 SC 1658 Lidocaine 1 PAT Q24H 08/11 0945 AC 08/11 EXT 1047 Metoprolol Tartrate 75 MG BID 08/08 2359 AC 08/11 PO 0935 Nifedipine 20 MG TID 08/09 1600 AC 08/11 PO 1600 Nystatin 1 KATHERIN TID 08/09 1000 AC 08/11 TOP 1601 Omeprazole 40 MG DAILY AC 08/09 0700 AC 08/11 PO 0618 Oxycodone/ 1 TAB Q8P PRN 08/08 2130 AC Acetaminophen PO Patient Medication 1 ED ONE ONE 08/11 1515 DC Teaching ED 08/11 1516 Simvastatin 40 MG DAILY 08/09 1000 AC 08/11 PO 0935 Tramadol HCl 50 MG Q8P PRN 08/08 2145 AC PO Moni,Nancy 08/11/17 1239: Observation Note Observation Note _ I have personally examined JHONATHAN HOGAN. her disposition is uncertain at this time. Before a determination can be made, she requires continued observation for the following reasons []. Patient on PO antibiotics. Patient is improving. Awaiting insurance approval. Case management aware
--- NOTE | 2017-08-11 08:37 | Discharge Summary ---
Visit Information Visit Dates Admission Date: 08/08/17 Discharge Date: 08/11/17 Hospital Course Course Attending Physician: Nancy Montenegro MD Primary Care Physician: Yoel Bassett MD Hospital Course: The patient is a 77 year-old woman with a past history h/o HTN, CAD s/p stent, carotid stenosis s/p R CEA, DM, HFpEF, chronic back pain, OA, spinal stenosis, CKD stage 3, was recently admitted to [facility] (07/11 07/21) for diarrhea (not Cdiff)/ physical deconditioning and was discharged to [facility] for short term rehab. She was discharged from the [facility] back to assisted living at [facility] a day prior. However, patient was unable to ambulate, felt weak and was sent back to the ER on August 07. Patient at baseline uses a motorized wheelchair outside her apartment, sleeps on a recliner and can do minimal activity at home can pivot, use her rolator to drag herself from the recliner to the bathroom or living room. She does not walk much, and is unable to lift her legs to ambulate at baseline. She has severe osteoarthritis and her left leg is weaker compared to the right. At the [facility], patient reported working with physical therapy and declined one session as she was not feeling well. She is upset that the [facility] reported that she refused to work with PT, which is not the case. She was unable to stand or ambulate at the [facility] and they discharged her. Patient arrived to [facility] on August 07, case management were trying to place her in a rehab facility but they were unable to get insurance authorization at that point. Patient reported urinary incontinence and some discomfort when she urinates but no frequency or dysuria. She denied abdominal pain, nausea, vomiting, chest pain or dyspnea. She reported left knee pain and spasms to her left leg - which is chronic. Vital signs at admission: Tmax 100.2, HR 80-100's, BP 160/80, sats 98% RA. Physical Exam at admission: General AAO, morbidly obese F, in no distress. She was incontinent of a large amount of urine. Perineal region was edematous and erythema noted to groin area. Buttocks and sacral area blanchable redness. Patient haD dry mucous membranes, Neck supple, Chest clear, Heart S1S2 regular, Abd soft, obese, nontender, LE: trace b/l lower extremity edema. Left calf muscle hypotrophy noted compared to right calf. Neuro exam essentially normal except for power in lower extremity RLE 3/5 and LLE 2/5. Significant labs on admission: WBC 11.5, BUN 26, creat 1.3 (baseline), glucose 289. UA turbid, proteinuria, nitrite negative, large leukocyte esterase, packed WBC, packed bacteria, RBC 5-10. Right foot Xray: degenerative changes. Left knee X-ray :IMPRESSION: Mild arthrosis of the left knee. No fracture or acute abnormality. Left hip x-ray: IMPRESSION:Severe osteoarthritis of left hip. I do not see a fracture. Echo (2012): EF > 60%, stage 1 diastolic dysfunction. She was admitted for weakness and physical deconditioning and treated for a urinary tract infection with PO bactrim and nitrofurantoin. Physical therapy assessed and recommended for short term rehab as she was not safe to be sent back to home or assisted living. Urine culture grew Klebsiella and her antibiotics were changed to PO ciprofloxacin. Her home medications of aspirin, metoprolol, omeprazole, zocor, nifedipine, lasix, myrbetriq, iron tabs, valium, and zetia. Her januvia was switched to novolog SS while she was an inpatient. Her pain was managed with PO tramadol and tylenol. Stage 2 decubitus ulcer was present on admission and was managed. She was discharged to short term rehab. Allergies: Coded Allergies: atorvastatin (From LIPITOR) (Severe, SWOLLEN TONGUE AND DRY MOUTH 07/11/17) Penicillins (Intermediate, HIVES 06/29/17) amoxicillin (DRY MOUTH 06/29/17) Disposition Summary Disposition Principal Diagnosis: 1. Weakness, inability to ambulate 2. Physical deconditioning 3. UTI 4. Stage 2 Decubitus ulcer present on admission 5. Diabetes mellitus with hyperglycemia Additional Diagnosis: 6. CKD stage 3 stable Discharge Disposition: SNF Discharge Instructions General Discharge Information Code Status: Do Not Resucitate/Intubat Patient's Diet: Consistent carbohydrate 3 diet/diabetic diet Patient's Activity: Self-limited activity Follow-Up Instructions/Appts: 1. Follow up with your primary care provider within 1 week of discharge Medications at Discharge Discharge Medications: Continue taking these medications: Aspirin (Children's Aspirin) 81 MG TAB.CHEW 1 Tablet ORAL DAILY Comments: Last Taken: 08/11/17 Time: 09:30 AM Metoprolol Tartrate (Lopressor) 50 MG TABLET 1.5 Tablet ORAL TWICE DAILY Comments: Last Taken: 08/11/17 Time: 09:30 AM Cholecalciferol (Vitamin D3) 1,000 UNIT TABLET 2,000 Units ORAL DAILY Comments: NOT GIVEN IN HOSPITAL Omeprazole (Omeprazole) 40 MG CAPSULE.DR 1 Capsule ORAL DAILY Comments: Last Taken: 08/11/17 Time: 06:00 AM Nifedipine (Procardia) 10 MG CAPSULE 20 Milligram ORAL THREE TIMES DAILY Qty = 90 Comments: Last Taken: 08/11/17 Time: 16:00 PM Furosemide (Furosemide) 20 MG TABLET 60 Milligram ORAL DAILY Qty = 90 Comments: Last Taken: 08/11/17 Time: 9:30 AM Sitagliptin Phosphate (Januvia) 50 MG TABLET 1 Tablet ORAL DAILY Qty = 30 Comments: NOT GIVEN IN THE HOSPITAL Mirabegron (Myrbetriq) 25 MG TAB.ER.24H 1 Tablet ORAL DAILY Comments: NOT GIVEN IN THE HOSPITAL Ferrous Sulfate (Ferrous Sulfate) 325 MG (65 MG IRON) TABLET 1 Tablet ORAL THREE TIMES DAILY Comments: Last Taken: 08/11/17 Time: 9:30 AM Diazepam (Diazepam) 5 MG TABLET 1 Tablet ORAL EVERY 8 HOURS NEEDED as needed for SPASMS Comments: NOT GIVEN IN THE HOSPITAL Ezetimibe (Zetia) 10 MG TABLET 1 Tablet ORAL DAILY Qty = 28 Comments: Last Taken: 08/11/17 Time: 09:30 AM Sodium Bicarbonate (Sodium Bicarbonate) 650 MG TABLET 1 Tablet ORAL TWICE DAILY Comments: NOT GIVEN IN HOSPITAL Lidocaine (Lidoderm) 5 % ADH..PATCH 1 Patch On the skin DAILY Instructions: may wear up to 12 hours Comments: Last Taken: 08/11/17 Time: 10:30 AM Tramadol HCl (Tramadol HCl) 50 MG TABLET 1 Tablet ORAL Q4H as needed for PAIN Comments: NOT GIVEN IN HOSPITAL Simvastatin (SIMVASTATIN*) 80 MG TABLET 0.5 Tablet ORAL DAILY Days = 30 Comments: Last Taken: 08/11/17 Time: 9:30 AM Duloxetine HCl (Duloxetine HCl) 30 MG CAPSULE.DR 1 Capsule ORAL DAILY Comments: Last Taken: 08/11/17 Time: 9:30 AM Start taking the following new medications: Ciprofloxacin HCl (Cipro) 500 MG TABLET 1 Tablet ORAL TWICE DAILY Qty = 17 No Refills Comments: Last Taken: 08/11/17 Time: 9:30 AM Copies To: Danyelle LOWE,Yoel Jackson Attending MD Review Statement Documenting Attending: Nancy Montenegro MD Other Findings: Patient medically stable for discharge to facility as per PT recommendations. In case her clinical condition worsens she is instructed to come to ER or call 911.
--- NOTE | 2017-08-11 08:58 | Patient Discharge Instructions ---
Discharge Instructions General Discharge Information You were seen/treated for: Urinary tract infection, generalized weakness Watch for these problems: In case of fever, chest pain, dysuria, nausea, vomiting, fall please go to the nearest emergency room Special Instructions: His follow-up with your primary care provider within 1-2 weeks of discharge. Diet Continue normal diet: No Recommended Diet: Heart Healthy Activity Full Activity/No Limits: No Activity Self Limited: Yes Acute Coronary Syndrome Inclusion Criteria At DC or during hospital stay patient has or had the following: ACS DIAGNOSIS No Discharge Core Measures Meds if any: Prescribed or Continued at Discharge Meds if any: NOT Prescribed or Continued at Discharge Congestive Heart Failure Inclusion Criteria At DC or during hospital stay patient has or had the following: CHF DIAGNOSIS No Discharge Core Measures Meds if any: Prescribed or Continued at Discharge Meds if any: NOT Prescribed or Continued at Discharge Cerebrovascular accident Inclusion Criteria At DC or during hospital stay patient has or had the following: CVA/TIA Diagnosis No Discharge Core Measures Meds if any: Prescribed or Continued at Discharge Meds if any: NOT Prescribed or Continued at Discharge Venous thromboembolism Inclusion Criteria VTE Diagnosis No VTE Type NONE VTE Confirmed by (Test) NONE Discharge Core Measures - Per Current guidelines, there needs to be overlap - treatment for the first 5 days of Warfarin therapy. - If discharged on Warfarin prior to 5 days of - overlap therapy, the patient will need to be - assessed for post discharge needs including - *Post discharge parental anticoagulation - *Warfarin and/or parental anticoagulation education - *Follow up date to check INR post discharge At least 5 days overlap therapy as Inpatient No Meds if any: Prescribed or Continued at Discharge Note: Overlap Therapy is Warfarin and Anticoagulant Meds if any: NOT Prescribed or Continued at Discharge
[2017-08-11] MEDS ORDERED: CIPRO500 M1 PO (09:01)
[2017-08-11 09:56] VITALS: BP 142/68
[2017-08-11 14:05] VITALS: BP 154/84
[2017-08-11 16:00] VITALS: BP 154/84
== END 2017-08-11 20:15 ==
LOC: ERH 21:20 → ERHI 08-08 19:11 → 2NB 08-08 19:11 → ENRESERV 08-08 20:53 → ENTRNSPT 08-08 21:34 → EDTRNSPTSTS 08-08 22:14 → EDTRNSPT 08-08 22:14 → 2NB 08-08 22:27 → EDTRNSPT 08-08 22:49 → CMPTRNSPT 08-09 11:49 → 2NB 08-11 07:33 → ENPENDDIS 08-11 16:48 → 2NB 08-11 20:15
PROVIDERS: Internal Medicine Hematology & Oncology; Physician Assistant; Student in an Organized Health Care Education/Training Program
DX: R53.1 Weakness (principal); I13.0 Hypertensive heart and chronic kidney disease with heart failure and stage 1 through stage 4 chronic kidney disease, or unspecified chronic kidney disease; I50.32 Chronic diastolic (congestive) heart failure; N18.3 Chronic kidney disease, stage 3 (moderate); E11.22 Type 2 diabetes mellitus with diabetic chronic kidney disease; Z79.4 Long term (current) use of insulin; I25.10 Atherosclerotic heart disease of native coronary artery without angina pectoris; Z95.5 Presence of coronary angioplasty implant and graft; M54.9 Dorsalgia, unspecified; M19.90 Unspecified osteoarthritis, unspecified site; R32 Unspecified urinary incontinence; Z79.82 Long term (current) use of aspirin; G25.81 Restless legs syndrome; E11.51 Type 2 diabetes mellitus with diabetic peripheral angiopathy without gangrene; F32.9 Major depressive disorder, single episode, unspecified; E86.0 Dehydration; L89.152 Pressure ulcer of sacral region, stage 2; N17.9 Acute kidney failure, unspecified; N39.0 Urinary tract infection, site not specified
CPT/HCPCS: 36592; 73502-LT; 73560-LT; 73630-RT; 81001; 82436; 87086; 93005; 93010; 96372; 97110-GO; 97110-GP; 97116-GO; 97161-GP; 97530-GO; 97530-GP; G0378; G8978-GP; G8979-GP; J1644; J3490